=== PATIENT | male | born 1960 | race Caucasian/White ===

== ENCOUNTER 2017-03-06 11:11 | Inpatient (IN) | payer BC ==
[2017-03-06] MEDS ORDERED: cefTRIAXone(*) 1 GM in NS 0.9% 50 ML* 50 ML IVPB ONE (12:05)
[2017-03-06] MEDS ORDERED: Ondansetron INJ* 2 MG/ML VIAL IV ONE (12:05)
[2017-03-06] MEDS ORDERED: Ketorolac INJ* 30 MG/ML 1 ML VIAL IV ONE (12:05)
[2017-03-06] MEDS ORDERED: NS 0.9% 1000 ML* 2,000 ML IV ONE (12:05)
[2017-03-06 12:37] LABS: Comments Flag Yes; Hematocrit 32 % (42-52); Hemoglobin 10.7 g/dl (14.0-18.0); Mean Corpuscular HGB Conc 34 g/dl (31-36); Mean Corpuscular Hemoglobin 26 pg (27-31); Mean Corpuscular Volume 77 fL (80-94); Mean Platelet Volume 8 um3 (7.4-10.4); Red Blood Count 4.14 10^6/ul (4.0-5.4); Red Cell Distribution Width 19 % (10.5-15); White Blood Count 5.5 10^3/ul (3.5-10.8)
[2017-03-06 12:38] LABS: Add Diff/Slide Review? Slide Review Added
[2017-03-06 12:44] LABS: Albumin 3.5 g/dL (3.2-5.2); BUN/Creatinine Ratio 13.6 (8-20); C Reactive Protein 79.09 mg/L (< 5.00); EGFR African American 125.4 (>60); EGFR Non-African American 97.5 (>60); Globulin 3.3 g/dL (2-4); Potassium 4.2 mmol/L (3.5-5.0); Total Protein 6.8 g/dL (6.4-8.9)
--- NOTE | 2017-03-06 13:02 | RAD ---
INDICATION: Neck pain radiating to both arms. COMPARISON: There are no prior studies available for comparison. TECHNIQUE: Contiguous axial sections were obtained from the skull base through the T1 vertebra. Images were reconstructed in the sagittal and coronal planes. FINDINGS: There is straightening of the cervical spine with loss of the normal cervical lordosis. No fracture is seen. At the C3-C4 level there is posterior uncinate process spurring. No significant spinal canal narrowing is present. There is moderate neural foraminal narrowing on the left side. At the C4-C5 level there is [id number] posterior uncinate process spurring. This causes mild spinal canal narrowing. There is moderate neural foraminal narrowing on the right side and mild neural foraminal narrowing on the left side. At the C5-C6 level there is mild posterior uncinate process spurring. There is mild spinal canal narrowing and mild bilateral neural foraminal narrowing. At the C6-C7 level there is mild posterior uncinate process spurring. There is mild spinal canal narrowing and mild bilateral neural foraminal narrowing. IMPRESSION: 1. MILD TO MODERATE CERVICAL SPONDYLOSIS DESCRIBED, IF THE PATIENT'S SYMPTOMS PERSIST RECOMMEND MR IMAGING. 2. STRAIGHTENING OF THE CERVICAL SPINE.
--- NOTE | 2017-03-06 13:04 | RAD ---
INDICATION: Fever. COMPARISON: Comparison is made with a prior chest x-ray study from November 05, 2016. TECHNIQUE: A portable view of the chest was obtained. FINDINGS: Cardiac and mediastinal contours appear to be within normal limits. The lungs are underinflated. There is a small infiltrate at the right lung base. No pleural effusion is seen. IMPRESSION: SMALL RIGHT BASILAR INFILTRATE.
[2017-03-06] MEDS ORDERED: Acetaminophen TAB* 325 MG PO ONE (13:45)
[2017-03-06] MEDS ORDERED: Azithromycin IV(*) 500 MG in NS 0.9% 250 ML* 250 ML IVPB ONE (14:01)
[2017-03-06 15:06] LABS: Urine Bacteria Absent (Absent); Urine Bilirubin Negative (Negative); Urine Glucose 2+(150 mg/dL) (Negative); Urine Nitrite Negative (Negative)
[2017-03-06] MEDS ORDERED: Ondansetron INJ* 2 MG/ML VIAL IV PRN (16:21)
[2017-03-06] MEDS ORDERED: Morphine INJ* 2 MG/ML 1 ML CARPUJECT IV PRN (16:21)
--- NOTE | 2017-03-06 16:26 | ED ---
Bruno Mabry Benjamin, scribed for Rene Garcia MD on 03/06/17 at 1211 . Complex/Multi-Sys Presentation - HPI Summary HPI Summary: 57yo male with hx of CA, which pt had removal surgery in his neck and was on chemo therapy 2 years ago. Pt has been following up with Dr. Gaitan and Dr. Khoury and today was seen for iron transfusion for his anemia when pt felt confused. Pt reports having THAKUR and fever for the last 3-4 days. He also had some neck pain for couple of weeks that he saw a chiropractor yesterday, which made his pain worse. He now reports numbness and pain radiating down to his fingers. Pt has been getting high fever intermittently throughout his current courses of treatment for his CA. - History Of Current Complaint Chief Complaint: EDFever Time Seen by Provider: 03/06/17 11:31 Hx Obtained From: Patient Onset/Duration: Sudden Onset, Lasting Days, Still Present, Worse Since - last few hours Timing: Intermittent, Lasting: Severity Currently: Moderate Severity Initially: Mild Location: Pain At: - THAKUR, neck, Radiates To: - fingers Associated Signs And Symptoms: Positive: Headache, Fever - Allergies/Home Medications Allergies/Adverse Reactions: Allergies Allergy/AdvReac Type Severity Reaction Status Date / Time No Known Allergies Allergy Verified 03/06/17 11:39 Home Medications: Home Medications Escitalopram (NF) [Lexapro 20 mg (NF)] 20 mg PO DAILY 03/06/17 [History Confirmed 03/06/17] Levothyroxine TAB* [Synthroid TAB*] 25 mcg PO DAILY 03/06/17 [History Confirmed 03/06/17] Omeprazole CAP* [Prilosec CAP* 20 MG] 20 mg PO .DAILY-BID 03/06/17 [History Confirmed 03/06/17] PMH/Surg Hx/FS Hx/Imm Hx Endocrine/Hematology History: Reports: Hx Diabetes - DIET CONTROLLED, Hx Thyroid Disease, Hx 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 Cardiovascular History: Reports: Hx Hypertension Denies: Hx Congestive Heart Failure, Hx Pacemaker/ICD Respiratory History: Denies: Hx Asthma, Hx Chronic Obstructive Pulmonary Disease (COPD) GI History: Reports: Hx Cirrhosis, Hx Gastrointestinal Bleed, Other GI Disorders - GIB Denies: Hx Ulcer History: Reports: Hx Renal Disease Sensory History: Reports: Hx Contacts or Glasses Denies: Hx Cataracts, Hx Hearing Aid Opthamlomology History: Reports: Hx Contacts or Glasses Denies: Hx Cataracts Psychiatric History: Reports: Hx Anxiety, Hx Depression - attention deficit Denies: Hx Panic Disorder - Cancer History Cancer Type, Location and Year: neck/throat ca- 2015. Squamous cell Hx Chemotherapy: Yes - LAST CHEMO 02/07 Hx Radiation Therapy: Yes - LAST RADIATION 02/11 Hx Palliative Cancer Treatment: No - Surgical History Surgery Procedure, Year, and Place: RIGHT HAND 03/2012, [facility] [place]. 12/22/14- REMOVAL OF LYMPH NODE LEFT NECK- [facility] [place]. bilateral hernia repair late Hx Anesthesia Reactions: No Infectious Disease History: Reports: Hx Hepatitis Denies: Hx Clostridium Difficile, Hx Human Immunodeficiency Virus (HIV), Hx of Known/Suspected MRSA, Hx Shingles, Hx Tuberculosis, Hx Known/Suspected VRE, Hx Known/Suspected VRSA, History Other Infectious Disease, Traveled Outside the [place] in Last 30 Days - Family History Known Family History: Positive: Hypertension, Diabetes - Social History Occupation: Employed Full-time Lives: Alone Alcohol Use: None Substance Use Type: Reports: None Hx Tobacco Use: No Smoking Status (MU): Former Smoker Type: Cigarettes Review of Systems Positive: Fever. Negative: Chills Eyes: Negative ENT: Negative Cardiovascular: Negative Respiratory: Negative Gastrointestinal: Negative Genitourinary: Negative Positive: Arthralgia - neck pain Skin: Negative Positive: Headache, Numbness - neck Psychological: Normal All Other Systems Reviewed And Are Negative: Yes Physical Exam Triage Information Reviewed: Yes Vital Signs On Initial Exam: Initial Vitals Temp Pulse Resp BP Pulse Ox 102.1 F 85 18 139/57 99 03/06/17 11:14 03/06/17 11:14 03/06/17 11:14 03/06/17 11:14 03/06/17 11:14 Vital Signs Reviewed: Yes Appearance: Positive: Well-Nourished, Ill-Appearing - moderate, Pain Distress - mild Skin: Positive: Warm, Skin Color Reflects Adequate Perfusion, Dry Head/Face: Positive: Normal Head/Face Inspection Eyes: Positive: EOMI, LEWIS ENT: Positive: Normal ENT inspection, Hearing grossly normal Neck: Positive: Tenderness @ - Tenderness in lateral aspects of the neck and bilateral trapezoids. Negative: Supple - decreased neck ROM secondary to pain Respiratory/Lung Sounds: Positive: Clear to Auscultation, Breath Sounds Present Cardiovascular: Positive: RRR, Pulses are Symmetrical in both Upper and Lower Extremities, Murmur Abdomen Description: Positive: Nontender, Soft Bowel Sounds: Positive: Present Musculoskeletal: Positive: Strength/ROM Intact Neurological: Positive: Sensory/Motor Intact, Alert, Oriented to Person Place, Time Psychiatric: Positive: Affect/Mood Appropriate Diagnostics - Vital Signs Vital Signs Temp Pulse Resp BP Pulse Ox 03/06/17 11:14 102.1 F 85 18 139/57 99 - Laboratory Lab Results: Lab Results 03/06/17 03/06/17 03/06/17 Range/Units 12:12 12:12 12:12 WBC 5.5 (3.5-10.8) 10^3/ul RBC 4.14 (4.0-5.4) 10^6/ul Hgb 10.7 L (14.0-18.0) g/dl Hct 32 L (42-52) % MCV 77 L (80-94) fL MCH 26 L (27-31) pg MCHC 34 (31-36) g/dl RDW 19 H (10.5-15) % Plt Count 44 L (150-450) 10^3/ul MPV 8 (7.4-10.4) um3 Neut % (Auto) 84.7 H (38-83) % Lymph % (Auto) 5.0 L (25-47) % [place] % (Auto) 10.0 H (1-9) % Eos % (Auto) 0.1 (0-6) % Baso % (Auto) 0.2 (0-2) % Absolute Neuts (auto) 4.7 (1.5-7.7) 10^3/ul Absolute Lymphs (auto) 0.3 L (1.0-4.8) 10^3/ul Absolute Monos (auto) 0.5 (0-0.8) 10^3/ul Absolute Eos (auto) 0 (0-0.6) 10^3/ul Absolute Basos (auto) 0 (0-0.2) 10^3/ul Absolute Nucleated RBC 0 10^3/ul Nucleated RBC % 0 INR (Anticoag Therapy) 1.33 H (0.89-1.11) APTT 27.6 (26.0-36.3) seconds Sodium 132 L (133-145) mmol/L Potassium 4.2 (3.5-5.0) mmol/L Chloride 100 L (101-111) mmol/L Carbon Dioxide 27 (22-32) mmol/L Anion Gap 5 (2-11) mmol/L BUN 11 (6-24) mg/dL Creatinine 0.81 (0.67-1.17) mg/dL Est GFR ( Amer) 125.4 (>60) Est GFR (Non-Af Amer) 97.5 (>60) BUN/Creatinine Ratio 13.6 (8-20) Glucose 205 H (70-100) mg/dL Lactic Acid (0.5-2.0) mmol/L Calcium 9.0 (8.6-10.3) mg/dL Total Bilirubin 3.00 H (0.2-1.0) mg/dL AST 30 (13-39) U/L ALT 23 (7-52) U/L Alkaline Phosphatase 85 (34-104) U/L C-Reactive Protein 79.09 H (< 5.00) mg/L Total Protein 6.8 (6.4-8.9) g/dL Albumin 3.5 (3.2-5.2) g/dL Globulin 3.3 (2-4) g/dL Albumin/Globulin Ratio 1.1 (1-3) Lipase 28 (11.0-82.0) U/L Urine Color Urine Appearance Urine pH (5-9) Ur Specific [place] (1.010-1.030) Urine Protein (Negative) Urine Ketones (Negative) Urine Blood (Negative) Urine Nitrate (Negative) Urine Bilirubin (Negative) Urine Urobilinogen (Negative) Ur Leukocyte Esterase (Negative) Urine WBC (Auto) (Absent) Urine RBC (Auto) (Absent) Urine Bacteria (Absent) Urine Glucose (Negative) 03/06/17 03/06/17 Range/Units 12:12 14:45 WBC (3.5-10.8) 10^3/ul RBC (4.0-5.4) 10^6/ul Hgb (14.0-18.0) g/dl Hct (42-52) % MCV (80-94) fL MCH (27-31) pg MCHC (31-36) g/dl RDW (10.5-15) % Plt Count (150-450) 10^3/ul MPV (7.4-10.4) um3 Neut % (Auto) (38-83) % Lymph % (Auto) (25-47) % [place] % (Auto) (1-9) % Eos % (Auto) (0-6) % Baso % (Auto) (0-2) % Absolute Neuts (auto) (1.5-7.7) 10^3/ul Absolute Lymphs (auto) (1.0-4.8) 10^3/ul Absolute Monos (auto) (0-0.8) 10^3/ul Absolute Eos (auto) (0-0.6) 10^3/ul Absolute Basos (auto) (0-0.2) 10^3/ul Absolute Nucleated RBC 10^3/ul Nucleated RBC % INR (Anticoag Therapy) (0.89-1.11) APTT (26.0-36.3) seconds Sodium (133-145) mmol/L Potassium (3.5-5.0) mmol/L Chloride (101-111) mmol/L Carbon Dioxide (22-32) mmol/L Anion Gap (2-11) mmol/L BUN (6-24) mg/dL Creatinine (0.67-1.17) mg/dL Est GFR ( Amer) (>60) Est GFR (Non-Af Amer) (>60) BUN/Creatinine Ratio (8-20) Glucose (70-100) mg/dL Lactic Acid 1.5 (0.5-2.0) mmol/L Calcium (8.6-10.3) mg/dL Total Bilirubin (0.2-1.0) mg/dL AST (13-39) U/L ALT (7-52) U/L Alkaline Phosphatase (34-104) U/L C-Reactive Protein (< 5.00) mg/L Total Protein (6.4-8.9) g/dL Albumin (3.2-5.2) g/dL Globulin (2-4) g/dL Albumin/Globulin Ratio (1-3) Lipase (11.0-82.0) U/L Urine Color [place] Urine Appearance Clear Urine pH 6.0 (5-9) Ur Specific [place] 1.019 (1.010-1.030) Urine Protein Negative (Negative) Urine Ketones Negative (Negative) Urine Blood 2+ H (Negative) Urine Nitrate Negative (Negative) Urine Bilirubin Negative (Negative) Urine Urobilinogen Positive H (Negative) Ur Leukocyte Esterase Negative (Negative) Urine WBC (Auto) Trace(0-5/hpf) (Absent) Urine RBC (Auto) 3+(>10/hpf) H (Absent) Urine Bacteria Absent (Absent) Urine Glucose 2+(150 mg/dl) H (Negative) Result Diagrams: 03/06/17 12:12 03/06/17 12:12 Lab Statement: Any lab studies that have been ordered have been reviewed, and results considered in the medical decision making process. - Radiology CXR Xray Interpretation: Positive (See Comments) - IMPRESSION: SMALL RIGHT BASILAR INFILTRATE. Radiology Interpretation Completed By: Radiologist - ED physician has reviewed this radiology report and agrees. - CT CT C Spine WO CT Interpretation: Positive (See Comments) - IMPRESSION: 1. MILD TO MODERATE CERVICAL SPONDYLOSIS DESCRIBED, IF THE PATIENT'S SYMPTOMS PERSIST RECOMMEND MR IMAGING. 2. STRAIGHTENING OF THE CERVICAL SPINE. CT Interpretation Completed By: Radiologist - ED physician has reviewed this radiology report and agrees. Re-Evaluation - Re-Evaluation First Eval Re-Evaluation Time: 13:33 Comment: Reviewed pts lab and imaging results with the pt. Second Eval Re-Evaluation Time: 14:23 Comment: Discussed course of treatment with the pt. Complex Multi-Symp Course/Dx Course Of Treatment: Reviewed pts medication and allergy lists. Blood pressure noted. Discussed with Dr. Lees (Oncology) at 1357. Discussed with Dr. Hair (Hospitalist) at 1405, 1518. DR HAIR SAW PATIENT IN ED. AT THIS TIME, DUE TO PLATELETS AT 44K, NO LP. ADMIT HOSPITALIST. - Diagnoses Provider Diagnoses: Pneumonia, Fever, Neck pain, Thrombocytopenia Discharge - Discharge Plan Condition: Stable Disposition: ADMITTED TO [facility] documentation as recorded by the Bruno nobles Benjamin accurately reflects the service I personally performed and the decisions made by me, Rene Garcia MD.
[2017-03-06] MEDS ORDERED: Gadoteridol* (CONTRAST) 279.3 MG/ML 10 ML IV ONE (17:40)
[2017-03-06] MEDS: Citalopram TAB* 40 MG PO SCH (18:43)
[2017-03-06] MEDS: NS 0.9% 1000 ML* 1,000 ML IV SCH (18:45)
[2017-03-06] MEDS: HYDROcodone/ACETAMIN 5-325 MG* 1 TAB PO PRN (18:49)
--- NOTE | 2017-03-06 19:31 | HP ---
CC: Dr. Huerta; Dr. Khoury * HISTORY AND PHYSICAL: DATE OF ADMISSION: 03/06/17 PRIMARY CARE PROVIDER: Dr. Huerta. ONCOLOGIST: Dr. Khoury. CHIEF COMPLAINT: Fever. HISTORY OF PRESENT ILLNESS: Mr. Rushing is a 57-year-old male who has a history of squamous cell carcinoma of head and neck, status post chemotherapy and radiation therapy, chronic hepatitis C, chronic thrombocytopenia, and iron deficiency anemia, who presented to the emergency room with complaints of fever. The patient states that for approximately the last 4 days, he has had low-grade fevers. 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 He states in addition to the low-grade fevers, he developed worse to normal neck pain. He states that he will routinely have neck pain that comes and goes; however, this has been much more severe than usual. The patient states that the day prior to admission, he went to his chiropractor for neck adjustment. He states the chiropractor used some sort of machine for muscle spasms on him and then tried to "crack his neck." He states the chiropractor was not successful with this and his neck pain worsened quite significantly following that. The patient notices severe pain when trying to move at all including sitting up. The patient states that at approximately 5.30 this morning, he checked his temperature and it was markedly elevated at 104. Despite this, he still went to his outpatient infusion for his IV iron. There, his fever was noted to be quite high and he was referred to the emergency room. He does in addition to the neck pain complain of headache; however, headaches are a frequent issue for him. He does admit to cough, but this too is chronic. He states he frequently will cough up mucus throughout the day, but this is no worse than usual. He denies any dysuria, he denies any diarrhea, he denies any sore throat. He has noted that his urine has been dark orange in color for a week as well as it has been smelly. The patient feels very tired and has so over the last approximately 10 days. PAST MEDICAL HISTORY: 1. 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 2. Chronic hepatitis C. 3. Chronic thrombocytopenia. 4. Bipolar disorder. 5. Chronic iron deficiency anemia. MEDICATIONS: 1. Lactobacillus 1 cap p.o. daily. 2. Poly-Iron 150, 1 cap p.o. daily. 3. Lexapro 20 mg p.o. daily. 4. Omeprazole 20 mg p.o. twice daily. 5. Levothyroxine 25 mcg p.o. daily. ALLERGIES: No known drug allergies. FAMILY HISTORY: Mom at the age of 85, there was a question of breast cancer. Dad at the age of 85, he had questionably heart disease. The patient is 1 of 9 children. Had 1 sister from ovarian cancer, 2 bothers from liver cancer. SOCIAL HISTORY: The patient is a former smoker, he quit 35 to 40 years ago. He does not drink alcohol. 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 He is , he has 1 grown son. His sister Brenda would be his healthcare proxy. REVIEW OF SYSTEMS: The patient admits to fevers and anorexia as above. He has felt very chilled today. He denies any chest pain. He has had cough and mucus production as above, but no shortness of breath. No nausea, vomiting, abdominal pain, diarrhea or constipation. He has noted intermittent blood in stool and is followed by Dr. Gaitan for this. No dysuria. He has generalized weakness. He states his vision has been blurry for quite sometime. He has chronic dysphagia. He feels achy all over. No rashes. He does carry a history of depression and anxiety; however, he states that this has been well controlled recently. PHYSICAL EXAMINATION GENERAL: The patient is a well-developed middle-aged male, sitting in a stretcher, appearing to be in no acute distress.. VITAL SIGNS: Blood pressure 102/56, pulse 89, respirations 20, temp 103.0, O2 sat 98% on room air. HEENT: Pupils are equal, they are round, they react to light. Extraocular muscles are intact. Oropharynx is clear. Oral mucosa is moist. NECK: There is no submandibular, cervical or supraclavicular adenopathy noted. Thyroid is not enlarged. No thyroid nodules are noted. PULMONARY: Lungs are clear to auscultation bilaterally. CARDIAC: Normal S1 and S2. Regular rate and rhythm. I do not appreciate any murmurs. There is no lower extremity edema. ABDOMEN: Bowel sounds are present. Abdomen is soft, nontender, nondistended. MUSCULOSKELETAL: There is no cyanosis or clubbing of the digits. There is full active range of motion of all 4 extremities. NEURO: Cranial nerves II through XII are grossly intact. Sensation is intact to light touch throughout. Strength is 5/5 and symmetric in both upper and lower extremities bilaterally. The patient does have stiff neck and is unable touch his chin to his chest. He has a negative Kernig sign. PSYCH: The patient is alert. He is oriented x3. Affect appears appropriate. SKIN: Warm and dry. There are no rashes. DIAGNOSTIC STUDIES/LAB DATA: WBC 5.5, hemoglobin 10.7, hematocrit 32, platelets 44,000. INR 1.33. Sodium 132, potassium 4.2, chloride 100, CO2 27, BUN 11, creatinine 0.81, glucose 205, lactic acid 1.5, calcium 9.0, bilirubin 3.0, AST 30, ALT 23, alk phos 85. CRP 79.09, albumin 3.5, lipase 28. Urinalysis reveals specific gravity of 1.019, 2+ blood, positive urobilinogen, trace wbc, 3+ rbc, absent bacteria and 2+ glucose. Chest x-ray, small right basilar infiltrate. Cervical spine CT, mild-to- moderate cervical spondylosis and straightening of cervical spine is noted. ASSESSMENT AND PLAN: Mr. Rushing is a 57-year-old male who has a history of head and neck cancer, chronic thrombocytopenia, and chronic iron deficiency anemia, who presented to the emergency room with complaints of fever and neck pain. 1. Fever. The etiology of this is not completely clear. On the differential would include pneumonia for which there is a positive chest x-ray with infiltrate at the right base versus meningitis versus urinary tract infection versus generalized viral illness. The patient will be treated with ceftriaxone and azithromycin for a possible right lower lobe pneumonia. In terms of meningitis, I do feel that an LP would be indicated; however, his platelet count is only 44,000 and a LP at this point would be unsafe. If the patient fails to respond to treatment for possible pneumonia or if his headache or neck pain worsens, we will need to consider transfusing the patient's platelets and performing a lumbar puncture. I did discuss with the patient with his platelet count as low as it is, it would be unsafe to do the lumbar puncture. He is in agreement in waiting at this point. The patient's urine has been sent to the lab. I will obtain legionella and strep pneumoniae urinary antigens. A sputum culture will also be obtained. The patient does give a history of having intermittent fevers off and on, which is obtained after completing the physical exam. ID consultation will likely be sought tomorrow. 2. Neck pain. This seems to be likely musculoskeletal in nature, though meningitis is a possibility. He will have Tylenol, [place] and morphine available for pain control. 3. Thrombocytopenia. This is chronic. His platelet count is in his usual range. 4. Iron deficiency anemia. The patient's H and H is better than his usual level. It is possible that he is somewhat dehydrated given his acute illness. We will follow his H and H. 5. Elevated blood glucose. Hemoglobin A1c will be obtained. It is unclear when the patient ate in relation to this blood draw. 6. Elevated bilirubin. The patient has had a chronically elevated bilirubin; however, this is the highest it has ever been. We will follow this intermittently. 7. Hypothyroidism. The patient will be maintained on his usual dose of Synthroid. 8. Anxiety/depression. This is not active right now. However, the patient will be continued on his usual dose of Lexapro. 9. DVT prophylaxis. According to the Adult Thrombosis Prophylaxis Risk Factor Assessment Guide, the patient has a total risk factor score of 4, making him high risk. Given his marked thrombocytopenia, the patient will have SCDs alone as DVT prophylaxis. 5. Code status is full and again, the patient indicates that his sister is his healthcare proxy. TIME SPENT: Sixty five minutes was spent admitting this patient. [id number]/[facility] #: [id number] ALCIDES
[2017-03-06] MEDS: Omeprazole CAP* 20 MG PO SCH (20:32)
[2017-03-06] MEDS: Acetaminophen TAB* 325 MG PO PRN (20:32)
--- NOTE | 2017-03-06 23:38 | RAD ---
Indication: Fever, neck pain, headache. Assess for potential epidural abscess. History of head and neck cancer. Comparison: March 06, 2017 CT. Technique: [place] 1.5 Liz [id number] with GEM suite. Pre and postcontrast MRI cervical spine. 17 mL ProHance administered IV. Report: The cervical spinal cord is normal in morphology and patterns of signal intensity. Negative for syringohydromyelia. Negative for abnormal intra or extra-axial enhancement. No suspicious bone marrow signal abnormality. Negative for fracture or spondylolysis at any level. Normal vertebral alignment accounting for exam positioning without spondylolisthesis or subluxation at any level. No epidural abscess collection evident. C2-C3: Unremarkable for age. C3-C4: Mild degenerative spondylosis. Uncinate process spurring results in mild LEFT foraminal stenosis. C4-C5: Mild degenerative spondylosis. Negative for spinal stenosis. C5-C6: Mild degenerative spondylosis. Negative for spinal stenosis. C6-C7: Moderate broad posterior disc extrusion with mild caudal extension. Resulting mild acquired central canal stenosis. Negative for significant foraminal stenosis. C7-T1: Small posterior central disc extrusion with mild cephalad extension. Resulting mild central canal stenosis. Facet joint osteoarthritis results in mild LEFT foraminal stenosis. IMPRESSION: 1. No evidence for epidural abscess. 2. Multilevel degenerative spondylosis and facet joint osteoarthritis. Resulting mild acquired central canal stenosis at C6-C7 and C7-T1. Resulting mild LEFT foraminal stenosis at C3-C4 and C7-T1.
[2017-03-07] MEDS: HYDROcodone/ACETAMIN 5-325 MG* 1 TAB PO PRN ×4 (01:22→22:35)
[2017-03-07] MEDS: Acetaminophen TAB* 325 MG PO PRN ×3 (01:24→16:14)
[2017-03-07] MEDS: Levothyroxine TAB* 25 MCG TAB PO SCH (05:29)
[2017-03-07] MEDS: NS 0.9% 1000 ML* 1,000 ML IV SCH (06:44)
[2017-03-07] MEDS ORDERED: Morphine INJ* 2 MG/ML 1 ML CARPUJECT IV PRN (08:57)
--- NOTE | 2017-03-07 09:03 | PN ---
Subjective Date of Service: 03/07/17 Interval History: Pt is feeling a little better today. He states his neck is still very painful. He now also describes having pain radiating down his L arm with his arm feeling tingly. He states the morphine at the current dose did not help much. He denies any new complaints. No diarrhea. Objective Active Medications: Acetaminophen (Tylenol Tab*) 650 mg PO Q4H PRN PRN Reason: pain or fever Last Admin: 03/07/17 01:24 Dose: 325 mg Hydrocodone Bitart/Acetaminophen ([place]ham 5-325 Tab*) 1 tab PO Q4H PRN PRN Reason: PAIN Last Admin: 03/07/17 05:40 Dose: 1 tab Citalopram Hydrobromide (Celexa Tab*) 40 mg PO DAILY [facility] Last Admin: 03/06/17 18:43 Dose: 40 mg Sodium Chloride (Ns 0.9% 1000 Ml*) 1,000 mls @ 100 mls/hr IV PER RATE [facility] Last Admin: 03/07/17 06:44 Dose: 100 mls/hr Ceftriaxone Sodium 1,000 mg/ (Sodium Chloride) 50 mls @ 200 mls/hr IVPB Q24H JOCELIN Azithromycin 500 mg/ Sodium (Chloride) 250 mls @ 250 mls/hr IVPB Q24H [facility] Levothyroxine Sodium (Synthroid Tab*) 25 mcg PO DAILY@0600 [facility] Last Admin: 03/07/17 05:29 Dose: 25 mcg Morphine Sulfate (Morphine Inj (Syringe)*) 2 mg IV Q4H PRN PRN Reason: PAIN - MILD Last Admin: 03/07/17 06:40 Dose: 2 mg Omeprazole (Prilosec Cap*) 20 mg PO BID [facility] Last Admin: 03/06/17 20:32 Dose: 20 mg Ondansetron HCl (Zofran Inj*) 4 mg IV Q6H PRN PRN Reason: NAUSEA Vital Signs 03/06/17 03/06/17 03/06/17 15:00 15:05 15:30 Temperature Pulse Rate 83 83 Respiratory 27 17 Rate Blood Pressure 118/68 102/56 (mmHg) O2 Sat by Pulse 96 97 Oximetry 03/06/17 03/06/17 03/06/17 15:35 16:00 16:53 Temperature 103.0 F 101.4 F Pulse Rate 89 84 Respiratory 20 16 Rate Blood Pressure 143/42 (mmHg) O2 Sat by Pulse 98 97 Oximetry 03/06/17 03/06/17 03/06/17 18:49 19:30 19:55 Temperature 103.0 F Pulse Rate 99 Respiratory 16 12 16 Rate Blood Pressure 101/38 (mmHg) O2 Sat by Pulse 96 Oximetry 03/06/17 03/06/17 03/07/17 20:49 23:54 01:22 Temperature 103.0 F Pulse Rate 103 Respiratory 12 16 16 Rate Blood Pressure 113/45 (mmHg) O2 Sat by Pulse 93 Oximetry 03/07/17 03/07/17 03/07/17 03:22 03:54 05:40 Temperature 99.6 F Pulse Rate 86 Respiratory 16 16 16 Rate Blood Pressure 99/43 (mmHg) O2 Sat by Pulse 94 Oximetry 03/07/17 03/07/17 06:40 08:00 Temperature 100.9 F Pulse Rate 70 Respiratory 20 16 Rate Blood Pressure 109/50 (mmHg) O2 Sat by Pulse 93 Oximetry Oxygen Devices in Use Now: None Appearance: Middle aged male sitting on edge of bed eating breakfast, NAD Eyes: No Scleral Icterus Ears/Nose/Mouth/Throat: Mucous Membranes Moist Neck: - - + tight posterior cervical musculature Respiratory: Symmetrical Chest Expansion and Respiratory Effort, Clear to Auscultation Cardiovascular: No Edema, - Abdominal: NL Sounds; No Tenderness; No Distention Extremities: No Clubbing, Cyanosis Skin: No Rash or Ulcers, No Nodules or Sclerosis Neurological: Alert and Oriented x 3 Result Diagrams: 03/06/17 12:12 03/06/17 12:12 Additional Lab and Data: Lab Results 03/06/17 03/06/17 03/06/17 Range/Units 12:12 12:12 12:12 WBC 5.5 (3.5-10.8) 10^3/ul RBC 4.14 (4.0-5.4) 10^6/ul Hgb 10.7 L (14.0-18.0) g/dl Hct 32 L (42-52) % MCV 77 L (80-94) fL MCH 26 L (27-31) pg MCHC 34 (31-36) g/dl RDW 19 H (10.5-15) % Plt Count 44 L (150-450) 10^3/ul MPV 8 (7.4-10.4) um3 Neut % (Auto) 84.7 H (38-83) % Lymph % (Auto) 5.0 L (25-47) % King % (Auto) 10.0 H (1-9) % Eos % (Auto) 0.1 (0-6) % Baso % (Auto) 0.2 (0-2) % Absolute Neuts (auto) 4.7 (1.5-7.7) 10^3/ul Absolute Lymphs (auto) 0.3 L (1.0-4.8) 10^3/ul Absolute Monos (auto) 0.5 (0-0.8) 10^3/ul Absolute Eos (auto) 0 (0-0.6) 10^3/ul Absolute Basos (auto) 0 (0-0.2) 10^3/ul Absolute Nucleated RBC 0 10^3/ul Nucleated RBC % 0 INR (Anticoag Therapy) 1.33 H (0.89-1.11) APTT 27.6 (26.0-36.3) seconds Sodium 132 L (133-145) mmol/L Potassium 4.2 (3.5-5.0) mmol/L Chloride 100 L (101-111) mmol/L Carbon Dioxide 27 (22-32) mmol/L Anion Gap 5 (2-11) mmol/L BUN 11 (6-24) mg/dL Creatinine 0.81 (0.67-1.17) mg/dL Est GFR ( Amer) 125.4 (>60) Est GFR (Non-Af Amer) 97.5 (>60) BUN/Creatinine Ratio 13.6 (8-20) Glucose 205 H (70-100) mg/dL Lactic Acid (0.5-2.0) mmol/L Calcium 9.0 (8.6-10.3) mg/dL Total Bilirubin 3.00 H (0.2-1.0) mg/dL AST 30 (13-39) U/L ALT 23 (7-52) U/L Alkaline Phosphatase 85 (34-104) U/L C-Reactive Protein 79.09 H (< 5.00) mg/L Total Protein 6.8 (6.4-8.9) g/dL Albumin 3.5 (3.2-5.2) g/dL Globulin 3.3 (2-4) g/dL Albumin/Globulin Ratio 1.1 (1-3) Lipase 28 (11.0-82.0) U/L Urine Color Urine Appearance Urine pH (5-9) Ur Specific Clements (1.010-1.030) Urine Protein (Negative) Urine Ketones (Negative) Urine Blood (Negative) Urine Nitrate (Negative) Urine Bilirubin (Negative) Urine Urobilinogen (Negative) Ur Leukocyte Esterase (Negative) Urine WBC (Auto) (Absent) Urine RBC (Auto) (Absent) Urine Bacteria (Absent) Urine Glucose (Negative) 03/06/17 03/06/17 Range/Units 12:12 14:45 WBC (3.5-10.8) 10^3/ul RBC (4.0-5.4) 10^6/ul Hgb (14.0-18.0) g/dl Hct (42-52) % MCV (80-94) fL MCH (27-31) pg MCHC (31-36) g/dl RDW (10.5-15) % Plt Count (150-450) 10^3/ul MPV (7.4-10.4) um3 Neut % (Auto) (38-83) % Lymph % (Auto) (25-47) % King % (Auto) (1-9) % Eos % (Auto) (0-6) % Baso % (Auto) (0-2) % Absolute Neuts (auto) (1.5-7.7) 10^3/ul Absolute Lymphs (auto) (1.0-4.8) 10^3/ul Absolute Monos (auto) (0-0.8) 10^3/ul Absolute Eos (auto) (0-0.6) 10^3/ul Absolute Basos (auto) (0-0.2) 10^3/ul Absolute Nucleated RBC 10^3/ul Nucleated RBC % INR (Anticoag Therapy) (0.89-1.11) APTT (26.0-36.3) seconds Sodium (133-145) mmol/L Potassium (3.5-5.0) mmol/L Chloride (101-111) mmol/L Carbon Dioxide (22-32) mmol/L Anion Gap (2-11) mmol/L BUN (6-24) mg/dL Creatinine (0.67-1.17) mg/dL Est GFR ( Amer) (>60) Est GFR (Non-Af Amer) (>60) BUN/Creatinine Ratio (8-20) Glucose (70-100) mg/dL Lactic Acid 1.5 (0.5-2.0) mmol/L Calcium (8.6-10.3) mg/dL Total Bilirubin (0.2-1.0) mg/dL AST (13-39) U/L ALT (7-52) U/L Alkaline Phosphatase (34-104) U/L C-Reactive Protein (< 5.00) mg/L Total Protein (6.4-8.9) g/dL Albumin (3.2-5.2) g/dL Globulin (2-4) g/dL Albumin/Globulin Ratio (1-3) Lipase (11.0-82.0) U/L Urine Color Rosalba Urine Appearance Clear Urine pH 6.0 (5-9) Ur Specific Clements 1.019 (1.010-1.030) Urine Protein Negative (Negative) Urine Ketones Negative (Negative) Urine Blood 2+ H (Negative) Urine Nitrate Negative (Negative) Urine Bilirubin Negative (Negative) Urine Urobilinogen Positive H (Negative) Ur Leukocyte Esterase Negative (Negative) Urine WBC (Auto) Trace(0-5/hpf) (Absent) Urine RBC (Auto) 3+(>10/hpf) H (Absent) Urine Bacteria Absent (Absent) Urine Glucose 2+(150 mg/dl) H (Negative) Microbiology and Other Data: Microbiology 03/06/17 20:00 Legionella Urinary Antigen - Final Urine Negative Legionella Streptococcus pneumoniae Ag Screen - Final Negative S. 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 - Patient Problems (1) Bacteremia due to group B Streptococcus Current Visit: Yes Status: Acute Code(s): R78.81 - BACTEREMIA SNOMED Code( s): 907693886392 Comment: The patient presented to the ER with c/o fever and neck pain. At this point is suspect the neck pain is musculoskeletal in nature. It was not clear where the fever came from on admission but now his blood cultures have come up positive for group B strep (4/4 bottles). MRI of the neck did not reveal epidural abscess. Transthoracic echo ordered this AM and pending. ID to see the patient later today. (2) Thrombocytopenia Current Visit: Yes Status: Acute Code(s): D69.6 - THROMBOCYTOPENIA, UNSPECIFIED SNOMED Code(s): 194087928 Comment: This is chronic and he is essentially at his baseline. (3) Iron deficiency anemia Current Visit: Yes Status: Acute Code(s): D50.9 - IRON DEFICIENCY ANEMIA, UNSPECIFIED SNOMED Code(s): 70781815 Comment: H/H on admission in pt's normal range. Will get follow up CBC tomorrow. (4) Hepatic cirrhosis due to chronic hepatitis C infection Current Visit: Yes Status: Chronic Code(s): B18.2 - CHRONIC VIRAL HEPATITIS C; K74.60 - UNSPECIFIED CIRRHOSIS OF LIVER SNOMED Code(s): 034626936480 Comment: Nothing to do at this time. (5) DVT prophylaxis Current Visit: Yes Status: Acute Code(s): FNP6636 - SNOMED Code(s): 420860919 Comment: SCDs alone given thrombocytopenia (6) Full code status Current Visit: Yes Status: Acute Code(s): Z78.9 - OTHER SPECIFIED HEALTH STATUS SNOMED Code(s): 388675233
[2017-03-07] MEDS: Cyclobenzaprine TAB* 10 MG PO PRN (09:26)
[2017-03-07] MEDS: Omeprazole CAP* 20 MG PO SCH ×2 (09:26→22:34)
[2017-03-07] MEDS: Citalopram TAB* 40 MG PO SCH (09:27)
[2017-03-07] MEDS: Morphine INJ* 4 MG/ML 1 ML CARPUJECT IV PRN ×2 (09:43→13:56)
--- NOTE | 2017-03-07 13:01 | CONS ---
CONSULTATION REPORT: DATE OF CONSULT: 03/07/17 REQUESTING PHYSICIAN: Dr. Hair. CONSULTING SERVICE: Infectious Disease. REASON FOR CONSULT: Strep bacteremia. IMPRESSION: 1. Fever, group B Strep bacteremia 4/4 bottles, sensitivities pending. The differential diagnosis for the source includes infective endocarditis, spine infection; he had a C-spine MRI yesterday, which was negative. He does have cervical and thoracic spine tenderness, so we will need to rule out thoracic spine infection. He has no diabetic ulcers or cellulitis. 2. Cirrhosis with portal hypertension. 3. History of squamous cell cancer of the head and neck, status post chemotherapy and radiation. RECOMMENDATION: Agree with ceftriaxone 1 g daily, recheck the blood cultures to make sure they are clear. We will obtain a transthoracic echocardiogram. Will need an MRI of the thoracic spine with contrast when he is able to. If the TTE is negative, we will obtain a transesophageal echocardiogram. HISTORY OF PRESENT ILLNESS: This is a 57-year-old cirrhotic man admitted with neck pain and fever. He had been having fever and chills for a few days, neck pain for a few weeks, and has seen a chiropractor without any improvement. He has ongoing neck and upper back pain. When he came to the hospital, his white count was 5. He had blood cultures taken 4/4 positive for group B Strep. He has been persistently febrile since he has gotten here. He is on ceftriaxone. He had a chest x-ray yesterday, shows moderate basilar infiltrate. He has no cough, chest pain, or dyspnea. Sputum culture was sent and is pending. He has not had an infection like this in the past. He has no prosthetic material present. PAST MEDICAL HISTORY: 1. Cirrhosis with varices. 2. Splenomegaly with thrombocytopenia. 3. Hepatitis C, cured. 4. Bipolar disorder. 5. Chronic iron deficiency anemia. MEDICATIONS: 1. Tylenol. 2. Citalopram. 3. Flexeril. 4. Vicodin. 5. Levothyroxine. 6. Omeprazole. 7. Ceftriaxone 1 g daily. 8. Azithromycin. ALLERGIES: No known drug allergies. FAMILY HISTORY: Mom at 85. Father at 85 with heart disease. SOCIAL HISTORY: He lives outside of [place], past smoker, no alcohol. 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 REVIEW OF SYSTEMS: All negative to a full review of systems except as noted above. PHYSICAL EXAM: Vital Signs: Temperature 38.3, heart rate 70, respiratory rate 16, blood pressure 109/50, and O2 sat 93% on room air. In general, he is awake and not in distress. HEENT: There is no conjunctival hemorrhage. Oropharynx without lesions. Neck is supple without nuchal rigidity. Lymph Nodes: There is no inguinal, axillary, or epitrochlear lymphadenopathy. Heart has regular rate and rhythm with a 2/6 systolic murmur. Lungs: Clear to auscultation bilaterally. Abdomen: Soft, nontender, nondistended. There are bowel sounds present. Skin: There is no rash or splinter hemorrhage. He has palmar erythema. Musculoskeletal: He has cervical and thoracic spine tenderness to palpation. No lumbar spine tenderness to palpation. He has no joint synovitis. Neurologic: He has 5/5 strength in the deltoids, biceps, triceps, wrist flexors and extensors bilaterally as well as in the quadriceps, tibialis anterior and gastrocnemius bilaterally. Sensation is intact to light touch in the upper and lower extremities bilaterally. LABORATORY DATA: White blood cell count 5, hemoglobin 10, platelets 44,000. Creatinine is 0.8. CRP 80. Total bilirubin is 3.0. AST 30. Please see impressions and recommendations outlined above, which I have discussed with Dr. Hair. Thanks for asking me to see Mr. Rushing in consultation. [id number]/[facility] #: [id number] [facility]USCarl
[2017-03-07] MEDS: cefTRIAXone VIAL(*) 1,000 MG in NS 0.9% 50 ML* 50 ML IVPB SCH (14:00)
--- NOTE | 2017-03-07 14:24 | ECHO ---
Patient: ROBLES ROGERS [facility] Rec#: [id number] : 1960 Date: 03/07/2017 Age: 57y Height: 175.26 cm / 69.0 in Weight: 83.91 kg / 184.9 lbs Sex: M BSA: 2 Room#: 451 Admit Date#: 03/06/2017 Type: Inpatient Referring: Allyn Hair DO Reading: Epifanio Singh MD Facilities Technician: Yadira Ring RDCS CC: Chelsie Huerta MD Transthoracic Echocardiogram Indication: Fever BP: 109/50 HR: 83 Rhythm: NSR Findings History: Squama cell cancer in head and neck s/p chemotherapy and radiation, hepatitis C, thrombocytopenia, anemia, bipolar disorder. Technical Comments: The study quality is good. Completed at 1305. Left Ventricle: The left ventricular chamber size is normal. Mild concentric left ventricular hypertrophy is observed. Global left ventricular wall motion and contractility are within normal limits. There is normal left ventricular systolic function. The estimated ejection fraction is 60-65%. Normal left ventricular diastolic filling is observed. Left Atrium: The left atrium is slightly dilated. Right Ventricle: The right ventricle is mildly dilated. The right ventricular global systolic function is normal. Right Atrium: The right atrium is mildly dilated. Aortic Valve: The aortic valve is trileaflet. The aortic valve leaflets are mildly thickened. There is a trace of aortic regurgitation. There is no evidence of aortic stenosis. Mitral Valve: The mitral valve leaflets are mildly thickened. The anterior leaflet of the mitral valve is thickened. There is a trace of mitral regurgitation. There is no evidence of mitral stenosis. Tricuspid Valve: The tricuspid valve leaflets are normal. There is trace to mild tricuspid regurgitation. The right ventricular systolic pressure is estimated at 44 mmHg. There is evidence of mild pulmonary hypertension. There is no tricuspid stenosis. Pulmonic Valve: The pulmonic valve appears normal. There is a trace pulmonic regurgitation. There is no pulmonic stenosis. Pericardium: There is no significant pericardial effusion. A pericardial fat pad is visualized. Aorta: There is mild dilatation of the ascending aorta. There is no dilatation of the aortic arch. There is mild dilatation of the aortic root. Pulmonary Artery: The main pulmonary artery is not well visualized. Venous: The inferior vena cava is dilated. There is a greater than 50% respiratory change in the inferior vena cava dimension. Conclusions Mild concentric left ventricular hypertrophy is observed. There is normal left ventricular systolic function. There is normal left ventricular systolic function. The estimated ejection fraction is 60-65%. Mild concentric left ventricular hypertrophy is observed. There is normal left ventricular systolic function. The estimated ejection fraction is 60-65%. The aortic valve leaflets are mildly thickened. The mitral valve leaflets are mildly thickened. The anterior leaflet of the mitral valve is thickened. There is trace mitral regurgitation. There is trace to mild tricuspid regurgitation. There is evidence of mild pulmonary hypertension. There is a trace pulmonic regurgitation. There are no large pedunculated valvular lesions to suggest endocarditis. If clinical suspicion is high could consider additional imaging by transesophageal echocardiography. No significant change compared to report of study from 02/16/2015 Measurements Name Value Normal Range RVIDd (AP) 2D 3.1 cm (0.9 - 2.6) RVDdMajor (2D) 4.6 cm (2.2 - 4.4) RAd ISD 4CH 6.1 cm (3.4 - 4.9) RA (A4C)W 4.8 cm (2.9 - 4.6) IVSd (2D) 1.2 cm (0.6 - 1) LVPWd (2D) 1.2 cm (0.6 - 1) LVIDd (2D) 4.9 cm (3.6 - 5.4) LVIDs (2D) 2.9 cm - LV FS (2D) 40 % (25 - 45) Aortic Annulus 2.2 cm (1.4 - 2.6) Ao root diameter (2D) 3.6 cm (2.1 - 3.5) Ascending Ao 3.6 cm (2.1 - 3.4) Aortic arch 2.6 cm (1.8 - 3.4) LA dimension (AP) 2D 4.1 cm (2.3 - 3.8) LAd ISD 4CH 5.5 cm (2.9 - 5.3) LA ISD 4CH W 5.4 cm (2.5 - 4.5) Name Value Normal Range LA ESV SP 4CH (A/L) 111 ml - LA ESV SP 2CH (A/L) 116 ml - LA ESV BP (A/L) 113 ml - LA ESV BP (A/L) index 56.68 ml/m2 - LA ESV SP 4CH (MOD) 93 ml - LA ESV SP 2CH (MOD) 108 ml - Name Value Normal Range MV E-wave Vmax 0.96 m/sec - MV deceleration time 173.17 msec - MV A-wave Vmax 0.55 m/sec - MV E:A ratio 1.8 ratio - LV septal e' Vmax 0.08 m/sec - LV lateral e' Vmax 0.1 m/sec - LV E:e' septal ratio 12 ratio - LV E:e' lateral ratio 9.6 ratio - Name Value Normal Range AV Vmax 1.7 m/sec - AV VTI 32.05 cm - AV peak gradient 12.06 mmHg - AV mean gradient 5.73 mmHg - LVOT Vmax 1.55 m/sec - LVOT VTI 28.97 cm - LVOT peak gradient 9.63 mmHg - LVOT mean gradient 5.06 mmHg - NICHOLAS Vmax 1.13 m/sec - Name Value Normal Range TR Vmax 2.7 m/sec - TR peak gradient 29 mmHg - RAP 15 mmHg - RVSP 44 mmHg - IVC diameter 2.2 cm - Name Value Normal Range PV Vmax 0.89 m/sec - PV peak gradient 3.18 mmHg -
[2017-03-07] MEDS ORDERED: Azithromycin IV(*) 500 MG in NS 0.9% 250 ML* 250 ML IVPB SCH (15:00)
[2017-03-07] MEDS ORDERED: Vancomycin(*) 1,000 MG in NS 0.9% 250 ML* 250 ML IVPB ONE (16:00)
[2017-03-07] MEDS ORDERED: Vancomycin per Pharmacy* NOTE FOLLOW UP PRN (16:31)
--- NOTE | 2017-03-07 16:54 | RAD ---
Indication: Hypoxia. Fever. Comparison: March 06, 2017 chest radiograph and January 18, [address] Technique: Upright AP 1610 hours Report: Mild patchy bilateral alveolar opacities. Negative for pleural effusion or pneumothorax. The heart, pulmonary vasculature, and mediastinal contours are unremarkable. IMPRESSION: The constellation of findings given the clinical context is suspicious for bronchopneumonia.
[2017-03-07] MEDS ORDERED: Gadoteridol* (CONTRAST) 279.3 MG/ML 10 ML IV ONE (18:11)
--- NOTE | 2017-03-07 19:41 | RAD ---
Indication: Fever. Cervical and thoracic spine tenderness. Assess for thoracic spine infection/epidural abscess. History of lymphoma. Comparison: November 09, 2014 PET/CT. Technique: [place] 1.5 Liz [id number] with GEM suite. Pre and postcontrast MRI thoracic spine. Report: Severe splenomegaly noted. The thoracic spinal cord is normal in morphology and patterns of signal intensity. No epidural inflammatory process or abscess evident. No inflammatory process at the thoracic disc spaces. Negative for thoracic spinal stenosis at any level. Small T1 and T2 hyperintense osseous hemangioma at the T7 vertebral body without concern. Mild edematous type reactive endplate change at T7-T8 and T8-T9. No suspicious focal osseous lesions. IMPRESSION: 1. No evidence for thoracic spine osteomyelitis discitis or epidural abscess. 2. Splenomegaly similar to the 2015 PET/CT..
[2017-03-08] MEDS: Vancomycin(*) 1,000 MG in NS 0.9% 250 ML* 250 ML IVPB SCH ×2 (00:18→08:16)
[2017-03-08] MEDS: Morphine INJ* 4 MG/ML 1 ML CARPUJECT IV PRN ×2 (02:28→08:23)
[2017-03-08] MEDS: Levothyroxine TAB* 25 MCG TAB PO SCH (05:01)
[2017-03-08] MEDS: HYDROcodone/ACETAMIN 5-325 MG* 1 TAB PO PRN (05:02)
[2017-03-08] MEDS: Omeprazole CAP* 20 MG PO SCH ×2 (08:10→20:31)
[2017-03-08] MEDS ORDERED: NS 0.9% 250 ML* 250 ML ONE (08:20)
[2017-03-08 09:32] LABS: Comments Flag Yes; Hematocrit 27 % (42-52); Hemoglobin 9.2 g/dl (14.0-18.0); Mean Corpuscular HGB Conc 34 g/dl (31-36); Mean Corpuscular Hemoglobin 26 pg (27-31); Mean Corpuscular Volume 77 fL (80-94); Mean Platelet Volume 8 um3 (7.4-10.4); Red Cell Distribution Width 19 % (10.5-15); White Blood Count 3.5 10^3/ul (3.5-10.8)
[2017-03-08 09:33] LABS: Add Diff/Slide Review? Manual Diff Added
[2017-03-08 10:08] LABS: Immature Granulocytes 2 % (0-9); Neutrophil % 88 % (38-83)
[2017-03-08 10:14] LABS: Spherocytes 1+
[2017-03-08 10:15] LABS: Macrocytosis 1+; Microcytosis 1+
[2017-03-08 10:26] LABS: BUN/Creatinine Ratio 15.5 (8-20); Calcium 8.2 mg/dL (8.6-10.3); EGFR Non-African American 113.6 (>60); Potassium 3.9 mmol/L (3.5-5.0)
[2017-03-08 10:52] LABS: Add Path Review? YES
[2017-03-08] MEDS: Citalopram TAB* 40 MG PO SCH (11:28)
[2017-03-08] MEDS: cefTRIAXone VIAL(*) 1,000 MG in NS 0.9% 50 ML* 50 ML IVPB SCH (12:05)
[2017-03-08] MEDS ORDERED: Midazolam* 1 MG/ML 5 ML VIAL (5 MG) ONE (12:26)
[2017-03-08] MEDS ORDERED: fentaNYL* 50 MCG/ML 2 ML VIAL (100 MCG VIAL) ONE (12:27)
[2017-03-08] MEDS ORDERED: Lidocaine 2% VISCOUS* 15 ML UDC ONE (12:27)
[2017-03-08] MEDS ORDERED: Naloxone* 0.4 MG/ML 1 ML VIAL ONE (12:27)
[2017-03-08] MEDS ORDERED: Flumazenil* 0.1 MG/ML 5 ML MDV ONE (12:27)
--- NOTE | 2017-03-08 14:08 | TEE ---
Patient: ROBLES ROGERS [facility] Rec#: [id number] : 1960 Date: 03/08/2017 Age: 57y Height: 175.26 cm / 69.0 in Weight: 83.91 kg / 184.9 lbs Sex: M BSA: 2 Room#: 451 Admit Date#: 03/06/2017 Type: Inpatient Referring: Allyn Hair DO Performing: Larry Adan MD Reading: Larry Adan MD Gem Cutter: Yadira Ring RDCS Nurse: Hannah Pascual RN CC: Chelsie Huerta MD Transesophageal Echocardiogram Indication: Fever, Positive blood cultures BP: 111/52 HR: 88 Rhythm: NSR Findings History: Squamous Cell cancer in head and neck s/p chemotherapy and radiation, hepatitis C, thrombocytopenia, anemia, bipolar, positive blood cultures Staphylococcus Aureus and Strep Agalactiae. This is a LIMITED study to assess valves. Technical Comments: The study quality is good. Left Ventricle: The left ventricular chamber size is normal. Global left ventricular wall motion and contractility are within normal limits. There is normal left ventricular systolic function. The estimated ejection fraction is 60-65%. Left Atrium: The left atrium is slightly dilated. No thrombus is visualized within the left atrium. There is no thrombus visualized in the left atrial appendage. Right Ventricle: The right ventricular cavity size is normal. The right ventricular global systolic function is normal. Right Atrium: The right atrium is mildly dilated. There is evidence of an atrial septal aneurysm. Aortic Valve: The aortic valve is trileaflet. The aortic valve leaflets are mildly thickened. There is a trace of aortic regurgitation. There is no evidence of aortic stenosis. There is no aortic vegetation present. Mitral Valve: The mitral valve leaflets are mildly thickened. There is a trace of mitral regurgitation. There is no evidence of mitral stenosis. No vegetation is observed on the mitral valve. Tricuspid Valve: The tricuspid valve leaflets are normal. There is trace to mild tricuspid regurgitation. There is no tricuspid stenosis. No vegetation is observed on the tricuspid valve. Pulmonic Valve: The pulmonic valve appears normal. There is a trace pulmonic regurgitation. There is no pulmonic stenosis. No vegetation is observed on the pulmonic valve. Pericardium: There is no significant pericardial effusion. Aorta: There is plaque visualized in the transverse aorta. There is minimal atherosclerotic plaque in the visualize segments of the aorta. Pulmonary Artery: The main pulmonary artery appears normal. Venous: The pulmonary veins appear normal. The pulmonary veins appear normal in size. ANDRIY Procedures: The procedure was abbreviated due to the patient's medical condition. History and physical as well as labs were reviewed. The patient was in a fasting state. Risks and benefits of the procedure, including alternatives, were discussed and written informed consent was obtained. The patient and/or their health care wholesale representative expressed understanding of the procedure, risks and benefits. Baseline and continuous monitoring of blood pressure, heart rate, pulse oximetry and heart rhythm was performed throughout the procedure. The appropriate time-out procedure was performed as per [facility] protocol. The patient was placed in the left lateral decubitus position. The patient's posterior pharynx was anesthetized with 20ml of 2% viscous lidocaine. The patient received IV Midazolam with a total dose of 5 mg. The patient received IV Fentanyl with a total dose of 100 mcg. Sedation was reversed with the use of Flumazenil 1 mg. Sedation was reversed with the use of Naloxone 0.2 mg. An oral bite block was inserted for protection of oral dentition. The multiplane transesophageal echocardiogram probe was inserted through the posterior oropharynx and advanced into the esophagus without difficulty. Multiple 2D images were obtained of the heart and its related structures. Color flow Doppler was used for evaluation. Procedure was aborted due to respiratory distress. Spectral Doppler was also used. Conclusions The procedure was abbreviated due to the patient's medical condition. The left ventricular chamber size is normal. The estimated ejection fraction is 60-65%. The left atrium is slightly dilated. The right atrium is mildly dilated. There is a trace of aortic regurgitation. There is no aortic vegetation present. There is a trace of mitral regurgitation. No vegetation is observed on the mitral valve. There is trace to mild tricuspid regurgitation. No vegetation is observed on the tricuspid valve. There is a trace pulmonic regurgitation. No vegetation is observed on the pulmonic valve.
--- NOTE | 2017-03-08 15:20 | PN ---
Subjective Date of Service: 03/08/17 Interval History: Pt is feeling ok post ANDRIY. He feels sleepy. He denies any new pain. He continues to c/o neck and left arm discomfort. No SOB. Objective Active Medications: Acetaminophen (Tylenol Tab*) 650 mg PO Q4H PRN PRN Reason: pain or fever Last Admin: 03/07/17 16:14 Dose: 650 mg Hydrocodone Bitart/Acetaminophen (Thelma 5-325 Tab*) 1 tab PO Q4H PRN PRN Reason: PAIN Last Admin: 03/08/17 05:02 Dose: 1 tab Citalopram Hydrobromide (Celexa Tab*) 40 mg PO DAILY [facility] Last Admin: 03/08/17 11:28 Dose: Not Given Cyclobenzaprine HCl (Flexeril Tab*) 10 mg PO TID PRN PRN Reason: PAIN Last Admin: 03/07/17 09:26 Dose: 10 mg Cefazolin Sodium 1 gm/ Sodium (Chloride) 50 mls @ 200 mls/hr IVPB Q6H [facility] Levothyroxine Sodium (Synthroid Tab*) 25 mcg PO DAILY@0600 [facility] Last Admin: 03/08/17 05:01 Dose: 25 mcg Morphine Sulfate (Morphine Inj (Syringe)*) 4 mg IV Q4H PRN PRN Reason: PAIN (DENTAL) Last Admin: 03/08/17 08:23 Dose: 4 mg Omeprazole (Prilosec Cap*) 20 mg PO BID [facility] Last Admin: 03/08/17 08:10 Dose: Not Given Ondansetron HCl (Zofran Inj*) 4 mg IV Q6H PRN PRN Reason: NAUSEA Vital Signs 03/07/17 03/07/17 03/07/17 15:37 16:15 18:15 Temperature 101.1 F Pulse Rate 98 Respiratory 18 18 20 Rate Blood Pressure 125/67 (mmHg) O2 Sat by Pulse 76 Oximetry 03/07/17 03/07/17 03/07/17 20:00 22:35 22:52 Temperature 101.6 F Pulse Rate 89 Respiratory 20 18 20 Rate Blood Pressure 113/61 (mmHg) O2 Sat by Pulse 100 Oximetry 03/07/17 03/08/17 03/08/17 23:20 00:35 02:28 Temperature 99.5 F Pulse Rate 88 Respiratory 16 16 20 Rate Blood Pressure 118/63 (mmHg) O2 Sat by Pulse 100 Oximetry 03/08/17 03/08/17 03/08/17 03:28 04:02 05:02 Temperature 99.2 F Pulse Rate 93 Respiratory 16 16 20 Rate Blood Pressure 116/55 (mmHg) O2 Sat by Pulse 100 Oximetry 03/08/17 03/08/17 03/08/17 07:02 07:28 07:50 Temperature 99.3 F Pulse Rate 96 Respiratory 16 16 24 Rate Blood Pressure 124/62 (mmHg) O2 Sat by Pulse 98 Oximetry 03/08/17 03/08/17 08:23 09:23 Temperature Pulse Rate Respiratory 18 22 Rate Blood Pressure (mmHg) O2 Sat by Pulse Oximetry Oxygen Devices in Use Now: None Appearance: Middle aged male sitting up in bed sleeping, awakens to voice, NAD Eyes: No Scleral Icterus Ears/Nose/Mouth/Throat: Mucous Membranes Moist Respiratory: Symmetrical Chest Expansion and Respiratory Effort, - - bibasilar crackles noted Cardiovascular: NL Sounds; No Murmurs; No JVD, RRR, No Edema Abdominal: NL Sounds; No Tenderness; No Distention Extremities: No Clubbing, Cyanosis Skin: No Rash or Ulcers, No Nodules or Sclerosis Neurological: - - sleepy but arousable Result Diagrams: 03/08/17 09:15 03/08/17 09:15 Additional Lab and Data: Lab Results 03/06/17 03/06/17 03/06/17 Range/Units 12:12 12:12 12:12 WBC 5.5 (3.5-10.8) 10^3/ul RBC 4.14 (4.0-5.4) 10^6/ul Hgb 10.7 L (14.0-18.0) g/dl Hct 32 L (42-52) % MCV 77 L (80-94) fL MCH 26 L (27-31) pg MCHC 34 (31-36) g/dl RDW 19 H (10.5-15) % Plt Count 44 L (150-450) 10^3/ul MPV 8 (7.4-10.4) um3 Neut % (Auto) 84.7 H (38-83) % Lymph % (Auto) 5.0 L (25-47) % [place] % (Auto) 10.0 H (1-9) % Eos % (Auto) 0.1 (0-6) % Baso % (Auto) 0.2 (0-2) % Absolute Neuts (auto) 4.7 (1.5-7.7) 10^3/ul Absolute Lymphs (auto) 0.3 L (1.0-4.8) 10^3/ul Absolute Monos (auto) 0.5 (0-0.8) 10^3/ul Absolute Eos (auto) 0 (0-0.6) 10^3/ul Absolute Basos (auto) 0 (0-0.2) 10^3/ul Absolute Nucleated RBC 0 10^3/ul Nucleated RBC % 0 INR (Anticoag Therapy) 1.33 H (0.89-1.11) APTT 27.6 (26.0-36.3) seconds Sodium 132 L (133-145) mmol/L Potassium 4.2 (3.5-5.0) mmol/L Chloride 100 L (101-111) mmol/L Carbon Dioxide 27 (22-32) mmol/L Anion Gap 5 (2-11) mmol/L BUN 11 (6-24) mg/dL Creatinine 0.81 (0.67-1.17) mg/dL Est GFR ( Amer) 125.4 (>60) Est GFR (Non-Af Amer) 97.5 (>60) BUN/Creatinine Ratio 13.6 (8-20) Glucose 205 H (70-100) mg/dL Lactic Acid (0.5-2.0) mmol/L Calcium 9.0 (8.6-10.3) mg/dL Total Bilirubin 3.00 H (0.2-1.0) mg/dL AST 30 (13-39) U/L ALT 23 (7-52) U/L Alkaline Phosphatase 85 (34-104) U/L C-Reactive Protein 79.09 H (< 5.00) mg/L Total Protein 6.8 (6.4-8.9) g/dL Albumin 3.5 (3.2-5.2) g/dL Globulin 3.3 (2-4) g/dL Albumin/Globulin Ratio 1.1 (1-3) Lipase 28 (11.0-82.0) U/L Urine Color Urine Appearance Urine pH (5-9) Ur Specific [place] (1.010-1.030) Urine Protein (Negative) Urine Ketones (Negative) Urine Blood (Negative) Urine Nitrate (Negative) Urine Bilirubin (Negative) Urine Urobilinogen (Negative) Ur Leukocyte Esterase (Negative) Urine WBC (Auto) (Absent) Urine RBC (Auto) (Absent) Urine Bacteria (Absent) Urine Glucose (Negative) 03/06/17 03/06/17 Range/Units 12:12 14:45 WBC (3.5-10.8) 10^3/ul RBC (4.0-5.4) 10^6/ul Hgb (14.0-18.0) g/dl Hct (42-52) % MCV (80-94) fL MCH (27-31) pg MCHC (31-36) g/dl RDW (10.5-15) % Plt Count (150-450) 10^3/ul MPV (7.4-10.4) um3 Neut % (Auto) (38-83) % Lymph % (Auto) (25-47) % [place] % (Auto) (1-9) % Eos % (Auto) (0-6) % Baso % (Auto) (0-2) % Absolute Neuts (auto) (1.5-7.7) 10^3/ul Absolute Lymphs (auto) (1.0-4.8) 10^3/ul Absolute Monos (auto) (0-0.8) 10^3/ul Absolute Eos (auto) (0-0.6) 10^3/ul Absolute Basos (auto) (0-0.2) 10^3/ul Absolute Nucleated RBC 10^3/ul Nucleated RBC % INR (Anticoag Therapy) (0.89-1.11) APTT (26.0-36.3) seconds Sodium (133-145) mmol/L Potassium (3.5-5.0) mmol/L Chloride (101-111) mmol/L Carbon Dioxide (22-32) mmol/L Anion Gap (2-11) mmol/L BUN (6-24) mg/dL Creatinine (0.67-1.17) mg/dL Est GFR ( Amer) (>60) Est GFR (Non-Af Amer) (>60) BUN/Creatinine Ratio (8-20) Glucose (70-100) mg/dL Lactic Acid 1.5 (0.5-2.0) mmol/L Calcium (8.6-10.3) mg/dL Total Bilirubin (0.2-1.0) mg/dL AST (13-39) U/L ALT (7-52) U/L Alkaline Phosphatase (34-104) U/L C-Reactive Protein (< 5.00) mg/L Total Protein (6.4-8.9) g/dL Albumin (3.2-5.2) g/dL Globulin (2-4) g/dL Albumin/Globulin Ratio (1-3) Lipase (11.0-82.0) U/L Urine Color [place] Urine Appearance Clear Urine pH 6.0 (5-9) Ur Specific [place] 1.019 (1.010-1.030) Urine Protein Negative (Negative) Urine Ketones Negative (Negative) Urine Blood 2+ H (Negative) Urine Nitrate Negative (Negative) Urine Bilirubin Negative (Negative) Urine Urobilinogen Positive H (Negative) Ur Leukocyte Esterase Negative (Negative) Urine WBC (Auto) Trace(0-5/hpf) (Absent) Urine RBC (Auto) 3+(>10/hpf) H (Absent) Urine Bacteria Absent (Absent) Urine Glucose 2+(150 mg/dl) H (Negative) Microbiology and Other Data: Microbiology 03/06/17 20:00 Legionella Urinary Antigen - Final Urine Negative Legionella Streptococcus pneumoniae Ag Screen - Final Negative S. pneumo Antigen 03/06/17 20:05 Gram Stain - Final Sputum Expectorated Assess/Plan/Problems-Billing Mr Rushing is a 57 yo M who has a h/o squamous cell ca of the head/neck s/p chemo and radiation in 2014, chronic hepatitis C, iron deficiency anemia and thrombocytopenia who presented to the ER from the [facility] with c/o fever and neck pain. - Patient Problems (1) Bacteremia due to group B Streptococcus Current Visit: Yes Status: Acute Code(s): R78.81 - BACTEREMIA SNOMED Code( s): 719156613158 Comment: The source of the bacteremia is not clear. MRI cervical and thoracic spine negative for discitis, osteo or epidural abscess. ANDRIY negative for vegetation. Repeat cultures pending from this AM. Will continue cefazolin going forward. Will be here through the weekend receiving IV Abx. (2) Thrombocytopenia Current Visit: Yes Status: Acute Code(s): D69.6 - THROMBOCYTOPENIA, UNSPECIFIED SNOMED Code(s): 952838565 Comment: This is chronic and he is essentially at his baseline. (3) Iron deficiency anemia Current Visit: Yes Status: Acute Code(s): D50.9 - IRON DEFICIENCY ANEMIA, UNSPECIFIED SNOMED Code(s): 63374878 Comment: H/H slightly lower today than on admission but still within his range. (4) Hepatic cirrhosis due to chronic hepatitis C infection Current Visit: Yes Status: Chronic Code(s): B18.2 - CHRONIC VIRAL HEPATITIS C; K74.60 - UNSPECIFIED CIRRHOSIS OF LIVER SNOMED Code(s): 530078784693 Comment: Nothing to do at this time. (5) DVT prophylaxis Current Visit: Yes Status: Acute Code(s): LSM1948 - SNOMED Code(s): 856507287 Comment: SCDs alone given thrombocytopenia (6) Full code status Current Visit: Yes Status: Acute Code(s): Z78.9 - OTHER SPECIFIED HEALTH STATUS SNOMED Code(s): 069508960
[2017-03-08] MEDS ORDERED: Vancomycin Trough Check NOTE FOLLOW UP ONE (15:30)
[2017-03-08] MEDS ORDERED: Acetaminophen SUPP* 650 MG SUPP PR PRN (19:50)
[2017-03-08] MEDS: Acetaminophen TAB* 325 MG PO PRN (20:31)
[2017-03-09] MEDS: Acetaminophen TAB* 325 MG PO PRN ×2 (04:39→19:24)
[2017-03-09] MEDS: Levothyroxine TAB* 25 MCG TAB PO SCH (05:41)
[2017-03-09] MEDS: Omeprazole CAP* 20 MG PO SCH ×2 (07:51→21:59)
[2017-03-09] MEDS: Citalopram TAB* 40 MG PO SCH (07:51)
[2017-03-09] MEDS: HYDROcodone/ACETAMIN 5-325 MG* 1 TAB PO PRN ×3 (07:52→19:12)
[2017-03-09] MEDS: ceFAZolin 1 GM VIAL(*) 1 GM in NS 0.9% 50 ML* 50 ML IVPB SCH ×2 (11:38→19:13)
--- NOTE | 2017-03-09 13:23 | PN ---
Progress Note - Progress Note Date of Service: 03/09/17 SOAP: Subjective: CC: fever HPI: 57 yo man with neck pain 3-4 weeks, fever and malaise for a few days. Neck pain better but not gone. Fever overnight, less of the time though. No sweats, chills, rash, or diarrhea. Objective: [] Vital Signs Temp 37.6 C 03/09/17 05:43 Pulse 79 03/09/17 03:22 Resp 17 03/09/17 11:53 BP 112/55 03/09/17 03:22 Pulse Ox 92 03/09/17 03:22 Intake & Output 03/08/17 03/09/17 03/09/17 18:59 06:59 18:59 Intake Total 250 125 Output Total 0 Balance 250 125 Intake: IVPB 250 ABX - VANCOMYCIN 250 Oral 0 125 Output: Urine 0 Other: Estimated Void Small # Bowel Movements 0 # Voids 3 Gen:awake, no distress HEENT:PERRL, MMM Neck:supple Heart:RRR 1/6 systolic murmur Lungs:CTA BL Abd:+BS NTND soft Skin: no rash MSK: no spine tenderness or joint tenderness Laboratory Results - last 24 hr 03/08/17 16:11 Vancomycin Trough 5.1 Microbiology 03/08/17 09:21 Aerobic Blood Culture - Preliminary Blood Venous No Growth Day 1 Anaerobic Blood Culture - Preliminary No Growth Day 1 03/08/17 09:15 Aerobic Blood Culture - Preliminary Blood Venous No Growth Day 1 Anaerobic Blood Culture - Preliminary No Growth Day 1 03/06/17 20:05 Gram Stain - Final Sputum Expectorated Sputum Culture - Final Staphylococcus Aureus 03/06/17 12:32 Aerobic Blood Culture - Final Blood Venous Strep Agalactiae - (Group B) Anaerobic Blood Culture - Final Strep Agalactiae - (Group B) Blood Culture - Final 03/06/17 12:12 Aerobic Blood Culture - Final Blood Venous Strep Agalactiae - (Group B) Anaerobic Blood Culture - Final Strep Agalactiae - (Group B) Blood Culture - Final 03/06/17 20:00 Legionella Urinary Antigen - Final Urine Negative Legionella Streptococcus pneumoniae Ag Screen - Final Negative S. pneumo Antigen Assessment: 1. Grp B Strep bacteremia, cleared; no spine infection or endocarditis (by ANDRIY) , no presiposing heart condition to make IE more likely. 2. cirrhosis and immunocompromised state from it 3. cured HCV 4. past chemo and XRT for neck cancer Plan: 1. continue ceftriaxone day 2/14 for no Strep bacteremia without a defined source
--- NOTE | 2017-03-09 13:56 | PN ---
Subjective Date of Service: 03/09/17 Interval History: Pt is feeling ok. He thinks his neck pain is a little better than it has been. He states his neck hurts more when he is sitting up however. He requests the morphine be discontinued as it makes him feel poorly. Objective Active Medications: Acetaminophen (Tylenol Tab*) 650 mg PO Q4H PRN PRN Reason: pain or fever Last Admin: 03/09/17 04:39 Dose: 650 mg Acetaminophen (Tylenol Supp*) 650 mg [place] Q6H PRN PRN Reason: FEVER Hydrocodone Bitart/Acetaminophen ([place] 5-325 Tab*) 1 tab PO Q4H PRN PRN Reason: PAIN Last Admin: 03/09/17 11:53 Dose: 1 tab Citalopram Hydrobromide (Celexa Tab*) 40 mg PO DAILY [facility] Last Admin: 03/09/17 07:51 Dose: 40 mg Cyclobenzaprine HCl (Flexeril Tab*) 10 mg PO TID PRN PRN Reason: PAIN Last Admin: 03/07/17 09:26 Dose: 10 mg Cefazolin Sodium 1 gm/ Sodium (Chloride) 50 mls @ 200 mls/hr IVPB Q6H [facility] Last Admin: 03/09/17 11:38 Dose: 200 mls/hr Levothyroxine Sodium (Synthroid Tab*) 25 mcg PO DAILY@0600 [facility] Last Admin: 03/09/17 05:41 Dose: 25 mcg Morphine Sulfate (Morphine Inj (Syringe)*) 4 mg IV Q4H PRN PRN Reason: PAIN (DENTAL) Last Admin: 03/08/17 08:23 Dose: 4 mg Omeprazole (Prilosec Cap*) 20 mg PO BID [facility] Last Admin: 03/09/17 07:51 Dose: 20 mg Ondansetron HCl (Zofran Inj*) 4 mg IV Q6H PRN PRN Reason: NAUSEA Vital Signs 03/08/17 03/08/17 03/08/17 15:30 19:00 19:29 Temperature 99.8 F 103.3 F 102.1 F Pulse Rate 79 102 Respiratory 20 20 Rate Blood Pressure 133/68 135/75 (mmHg) O2 Sat by Pulse 98 96 Oximetry 03/08/17 03/08/17 03/08/17 19:35 21:06 21:59 Temperature 101.7 F 99.8 F Pulse Rate Respiratory 22 Rate Blood Pressure (mmHg) O2 Sat by Pulse Oximetry 03/08/17 03/08/17 03/09/17 23:08 23:58 03:22 Temperature 99.6 F 98.9 F 99.3 F Pulse Rate 73 79 Respiratory 16 16 Rate Blood Pressure 115/59 112/55 (mmHg) O2 Sat by Pulse 94 92 Oximetry 03/09/17 03/09/17 03/09/17 05:43 07:52 09:52 Temperature 99.6 F Pulse Rate Respiratory 14 17 Rate Blood Pressure (mmHg) O2 Sat by Pulse Oximetry 03/09/17 11:53 Temperature Pulse Rate Respiratory 17 Rate Blood Pressure (mmHg) O2 Sat by Pulse Oximetry Oxygen Devices in Use Now: None Appearance: Middle aged male sitting up in bed, NAD Eyes: No Scleral Icterus Ears/Nose/Mouth/Throat: Mucous Membranes Moist Respiratory: Symmetrical Chest Expansion and Respiratory Effort, Clear to Auscultation - with bibasilar crackles Cardiovascular: NL Sounds; No Murmurs; No JVD, RRR, No Edema Abdominal: NL Sounds; No Tenderness; No Distention Extremities: No Clubbing, Cyanosis Skin: No Rash or Ulcers, No Nodules or Sclerosis Neurological: Alert and Oriented x 3 Result Diagrams: 03/08/17 09:15 03/08/17 09:15 Additional Lab and Data: Lab Results 03/06/17 03/06/17 03/06/17 Range/Units 12:12 12:12 12:12 WBC 5.5 (3.5-10.8) 10^3/ul RBC 4.14 (4.0-5.4) 10^6/ul Hgb 10.7 L (14.0-18.0) g/dl Hct 32 L (42-52) % MCV 77 L (80-94) fL MCH 26 L (27-31) pg MCHC 34 (31-36) g/dl RDW 19 H (10.5-15) % Plt Count 44 L (150-450) 10^3/ul MPV 8 (7.4-10.4) um3 Neut % (Auto) 84.7 H (38-83) % Lymph % (Auto) 5.0 L (25-47) % [place] % (Auto) 10.0 H (1-9) % Eos % (Auto) 0.1 (0-6) % Baso % (Auto) 0.2 (0-2) % Absolute Neuts (auto) 4.7 (1.5-7.7) 10^3/ul Absolute Lymphs (auto) 0.3 L (1.0-4.8) 10^3/ul Absolute Monos (auto) 0.5 (0-0.8) 10^3/ul Absolute Eos (auto) 0 (0-0.6) 10^3/ul Absolute Basos (auto) 0 (0-0.2) 10^3/ul Absolute Nucleated RBC 0 10^3/ul Nucleated RBC % 0 INR (Anticoag Therapy) 1.33 H (0.89-1.11) APTT 27.6 (26.0-36.3) seconds Sodium 132 L (133-145) mmol/L Potassium 4.2 (3.5-5.0) mmol/L Chloride 100 L (101-111) mmol/L Carbon Dioxide 27 (22-32) mmol/L Anion Gap 5 (2-11) mmol/L BUN 11 (6-24) mg/dL Creatinine 0.81 (0.67-1.17) mg/dL Est GFR ( Amer) 125.4 (>60) Est GFR (Non-Af Amer) 97.5 (>60) BUN/Creatinine Ratio 13.6 (8-20) Glucose 205 H (70-100) mg/dL Lactic Acid (0.5-2.0) mmol/L Calcium 9.0 (8.6-10.3) mg/dL Total Bilirubin 3.00 H (0.2-1.0) mg/dL AST 30 (13-39) U/L ALT 23 (7-52) U/L Alkaline Phosphatase 85 (34-104) U/L C-Reactive Protein 79.09 H (< 5.00) mg/L Total Protein 6.8 (6.4-8.9) g/dL Albumin 3.5 (3.2-5.2) g/dL Globulin 3.3 (2-4) g/dL Albumin/Globulin Ratio 1.1 (1-3) Lipase 28 (11.0-82.0) U/L Urine Color Urine Appearance Urine pH (5-9) Ur Specific [place] (1.010-1.030) Urine Protein (Negative) Urine Ketones (Negative) Urine Blood (Negative) Urine Nitrate (Negative) Urine Bilirubin (Negative) Urine Urobilinogen (Negative) Ur Leukocyte Esterase (Negative) Urine WBC (Auto) (Absent) Urine RBC (Auto) (Absent) Urine Bacteria (Absent) Urine Glucose (Negative) 03/06/17 03/06/17 Range/Units 12:12 14:45 WBC (3.5-10.8) 10^3/ul RBC (4.0-5.4) 10^6/ul Hgb (14.0-18.0) g/dl Hct (42-52) % MCV (80-94) fL MCH (27-31) pg MCHC (31-36) g/dl RDW (10.5-15) % Plt Count (150-450) 10^3/ul MPV (7.4-10.4) um3 Neut % (Auto) (38-83) % Lymph % (Auto) (25-47) % [place] % (Auto) (1-9) % Eos % (Auto) (0-6) % Baso % (Auto) (0-2) % Absolute Neuts (auto) (1.5-7.7) 10^3/ul Absolute Lymphs (auto) (1.0-4.8) 10^3/ul Absolute Monos (auto) (0-0.8) 10^3/ul Absolute Eos (auto) (0-0.6) 10^3/ul Absolute Basos (auto) (0-0.2) 10^3/ul Absolute Nucleated RBC 10^3/ul Nucleated RBC % INR (Anticoag Therapy) (0.89-1.11) APTT (26.0-36.3) seconds Sodium (133-145) mmol/L Potassium (3.5-5.0) mmol/L Chloride (101-111) mmol/L Carbon Dioxide (22-32) mmol/L Anion Gap (2-11) mmol/L BUN (6-24) mg/dL Creatinine (0.67-1.17) mg/dL Est GFR ( Amer) (>60) Est GFR (Non-Af Amer) (>60) BUN/Creatinine Ratio (8-20) Glucose (70-100) mg/dL Lactic Acid 1.5 (0.5-2.0) mmol/L Calcium (8.6-10.3) mg/dL Total Bilirubin (0.2-1.0) mg/dL AST (13-39) U/L ALT (7-52) U/L Alkaline Phosphatase (34-104) U/L C-Reactive Protein (< 5.00) mg/L Total Protein (6.4-8.9) g/dL Albumin (3.2-5.2) g/dL Globulin (2-4) g/dL Albumin/Globulin Ratio (1-3) Lipase (11.0-82.0) U/L Urine Color [place] Urine Appearance Clear Urine pH 6.0 (5-9) Ur Specific [place] 1.019 (1.010-1.030) Urine Protein Negative (Negative) Urine Ketones Negative (Negative) Urine Blood 2+ H (Negative) Urine Nitrate Negative (Negative) Urine Bilirubin Negative (Negative) Urine Urobilinogen Positive H (Negative) Ur Leukocyte Esterase Negative (Negative) Urine WBC (Auto) Trace(0-5/hpf) (Absent) Urine RBC (Auto) 3+(>10/hpf) H (Absent) Urine Bacteria Absent (Absent) Urine Glucose 2+(150 mg/dl) H (Negative) Microbiology and Other Data: Microbiology 03/06/17 20:00 Legionella Urinary Antigen - Final Urine Negative Legionella Streptococcus pneumoniae Ag Screen - Final Negative S. pneumo Antigen 03/06/17 20:05 Gram Stain - Final Sputum Expectorated Assess/Plan/Problems-Billing Mr Rushing is a 57 yo M who has a h/o squamous cell ca of the head/neck s/p chemo and radiation in 2014, chronic hepatitis C, iron deficiency anemia and thrombocytopenia who presented to the ER from the [facility] with c/o fever and neck pain. - Patient Problems (1) Bacteremia due to group B Streptococcus Current Visit: Yes Status: Acute Code(s): R78.81 - BACTEREMIA SNOMED Code( s): 767211053875 Comment: The source of the bacteremia is not clear. Plan will be for 2 weeks of Abx therapy for the strep bacteremia. It is unclear if the staph found in his sputum is a pathogen. Continue cefazolin for now. (2) Thrombocytopenia Current Visit: Yes Status: Acute Code(s): D69.6 - THROMBOCYTOPENIA, UNSPECIFIED SNOMED Code(s): 882906851 Comment: This is chronic and he is essentially at his baseline. (3) Iron deficiency anemia Current Visit: Yes Status: Acute Code(s): D50.9 - IRON DEFICIENCY ANEMIA, UNSPECIFIED SNOMED Code(s): 10243912 Comment: Repeat CBC pending for tomorrow AM. (4) Hepatic cirrhosis due to chronic hepatitis C infection Current Visit: Yes Status: Chronic Code(s): B18.2 - CHRONIC VIRAL HEPATITIS C; K74.60 - UNSPECIFIED CIRRHOSIS OF LIVER SNOMED Code(s): 864329194380 Comment: Nothing to do at this time. Pt has been treated. (5) DVT prophylaxis Current Visit: Yes Status: Acute Code(s): BPB4052 - SNOMED Code(s): 715279718 Comment: SCDs alone given thrombocytopenia (6) Full code status Current Visit: Yes Status: Acute Code(s): Z78.9 - OTHER SPECIFIED HEALTH STATUS SNOMED Code(s): 446627665
[2017-03-09] MEDS: Gabapentin CAP(*) 100 MG PO SCH ×2 (15:22→21:58)
[2017-03-10] MEDS: ceFAZolin 1 GM VIAL(*) 1 GM in NS 0.9% 50 ML* 50 ML IVPB SCH ×4 (00:39→18:24)
[2017-03-10] MEDS: Cyclobenzaprine TAB* 10 MG PO PRN (00:52)
[2017-03-10] MEDS: HYDROcodone/ACETAMIN 5-325 MG* 1 TAB PO PRN ×4 (03:43→21:22)
[2017-03-10] MEDS: Levothyroxine TAB* 25 MCG TAB PO SCH (06:04)
[2017-03-10 07:52] LABS: Comments Flag Yes; Hematocrit 27 % (42-52); Hemoglobin 9.4 g/dl (14.0-18.0); Mean Corpuscular HGB Conc 35 g/dl (31-36); Mean Corpuscular Hemoglobin 26 pg (27-31); Mean Corpuscular Volume 76 fL (80-94); Mean Platelet Volume 8 um3 (7.4-10.4); Red Cell Distribution Width 19 % (10.5-15); White Blood Count 2.7 10^3/ul (3.5-10.8)
[2017-03-10 08:03] LABS: BUN/Creatinine Ratio 10.9 (8-20); Calcium 8.5 mg/dL (8.6-10.3); EGFR African American 164.6 (>60); Potassium 3.6 mmol/L (3.5-5.0)
[2017-03-10] MEDS: Gabapentin CAP(*) 100 MG PO SCH ×3 (08:28→21:18)
[2017-03-10] MEDS: Citalopram TAB* 40 MG PO SCH (08:29)
[2017-03-10] MEDS: Omeprazole CAP* 20 MG PO SCH ×2 (08:29→21:18)
[2017-03-10] MEDS: Acetaminophen TAB* 325 MG PO PRN ×2 (08:34→19:08)
[2017-03-10] MEDS: Docusate CAP* 100 MG PO PRN (08:54)
--- NOTE | 2017-03-10 10:05 | PN ---
Subjective Date of Service: 03/10/17 Interval History: Pt is feeling ok today. He continue to have the neck pain radiating down his left arm. He does not think the gabapentin has helped really. He has not had a BM in about 5 days now and asks for a stool softner. Objective Active Medications: Acetaminophen (Tylenol Tab*) 650 mg PO Q4H PRN PRN Reason: pain or fever Last Admin: 03/10/17 08:34 Dose: 650 mg Hydrocodone Bitart/Acetaminophen ([place] 5-325 Tab*) 1 tab PO Q4H PRN PRN Reason: PAIN Last Admin: 03/10/17 08:28 Dose: 1 tab Citalopram Hydrobromide (Celexa Tab*) 40 mg PO DAILY [facility] Last Admin: 03/10/17 08:29 Dose: 40 mg Cyclobenzaprine HCl (Flexeril Tab*) 10 mg PO TID PRN PRN Reason: PAIN Last Admin: 03/10/17 00:52 Dose: 10 mg Docusate Sodium (Colace Cap*) 100 mg PO BID PRN PRN Reason: CONSTIPATION Last Admin: 03/10/17 08:54 Dose: 100 mg Gabapentin (Neurontin Cap(*)) 100 mg PO TID [facility] Last Admin: 03/10/17 08:28 Dose: 100 mg Cefazolin Sodium 1 gm/ Sodium (Chloride) 50 mls @ 200 mls/hr IVPB Q6H [facility] Last Admin: 03/10/17 06:05 Dose: 200 mls/hr Levothyroxine Sodium (Synthroid Tab*) 25 mcg PO DAILY@0600 [facility] Last Admin: 03/10/17 06:04 Dose: 25 mcg Omeprazole (Prilosec Cap*) 20 mg PO BID [facility] Last Admin: 03/10/17 08:29 Dose: 20 mg Ondansetron HCl (Zofran Inj*) 4 mg IV Q6H PRN PRN Reason: NAUSEA Senna (Senokot Tab*) 1 tab PO BEDTIME PRN PRN Reason: CONSTIPATION Vital Signs 03/09/17 03/09/17 03/09/17 09:52 11:29 11:53 Temperature 98.6 F Pulse Rate 66 Respiratory 17 20 17 Rate Blood Pressure 111/65 (mmHg) O2 Sat by Pulse 97 Oximetry 03/09/17 03/09/17 03/09/17 13:53 15:22 15:33 Temperature 99.5 F Pulse Rate 82 Respiratory 16 19 20 Rate Blood Pressure 110/59 (mmHg) O2 Sat by Pulse 95 Oximetry 03/09/17 03/09/17 03/09/17 16:00 17:22 19:11 Temperature 102.1 F Pulse Rate 91 Respiratory 16 16 Rate Blood Pressure 127/56 (mmHg) O2 Sat by Pulse 95 93 Oximetry 03/09/17 03/09/17 03/09/17 19:12 20:00 21:12 Temperature Pulse Rate Respiratory 16 16 16 Rate Blood Pressure (mmHg) O2 Sat by Pulse Oximetry 03/09/17 03/09/17 03/09/17 21:58 23:44 23:58 Temperature 99.0 F Pulse Rate 69 Respiratory 16 20 16 Rate Blood Pressure 102/50 (mmHg) O2 Sat by Pulse 91 Oximetry 03/10/17 03/10/17 03/10/17 00:00 00:52 02:52 Temperature Pulse Rate Respiratory 20 20 Rate Blood Pressure (mmHg) O2 Sat by Pulse 93 Oximetry 03/10/17 03/10/17 03/10/17 03:43 05:43 07:35 Temperature 99.1 F Pulse Rate 73 Respiratory 20 19 18 Rate Blood Pressure 112/51 (mmHg) O2 Sat by Pulse 94 Oximetry 03/10/17 08:28 Temperature Pulse Rate Respiratory 18 Rate Blood Pressure (mmHg) O2 Sat by Pulse Oximetry Oxygen Devices in Use Now: None Appearance: Middle aged male lying in bed, NAD Eyes: No Scleral Icterus Ears/Nose/Mouth/Throat: Mucous Membranes Moist Respiratory: Symmetrical Chest Expansion and Respiratory Effort, Clear to Auscultation Cardiovascular: NL Sounds; No Murmurs; No JVD, RRR, No Edema Abdominal: NL Sounds; No Tenderness; No Distention Extremities: No Clubbing, Cyanosis Skin: No Rash or Ulcers, No Nodules or Sclerosis Neurological: Alert and Oriented x 3 Result Diagrams: 03/10/17 07:32 03/10/17 07:32 Additional Lab and Data: Lab Results 03/06/17 03/06/17 03/06/17 Range/Units 12:12 12:12 12:12 WBC 5.5 (3.5-10.8) 10^3/ul RBC 4.14 (4.0-5.4) 10^6/ul Hgb 10.7 L (14.0-18.0) g/dl Hct 32 L (42-52) % MCV 77 L (80-94) fL MCH 26 L (27-31) pg MCHC 34 (31-36) g/dl RDW 19 H (10.5-15) % Plt Count 44 L (150-450) 10^3/ul MPV 8 (7.4-10.4) um3 Neut % (Auto) 84.7 H (38-83) % Lymph % (Auto) 5.0 L (25-47) % Todd % (Auto) 10.0 H (1-9) % Eos % (Auto) 0.1 (0-6) % Baso % (Auto) 0.2 (0-2) % Absolute Neuts (auto) 4.7 (1.5-7.7) 10^3/ul Absolute Lymphs (auto) 0.3 L (1.0-4.8) 10^3/ul Absolute Monos (auto) 0.5 (0-0.8) 10^3/ul Absolute Eos (auto) 0 (0-0.6) 10^3/ul Absolute Basos (auto) 0 (0-0.2) 10^3/ul Absolute Nucleated RBC 0 10^3/ul Nucleated RBC % 0 INR (Anticoag Therapy) 1.33 H (0.89-1.11) APTT 27.6 (26.0-36.3) seconds Sodium 132 L (133-145) mmol/L Potassium 4.2 (3.5-5.0) mmol/L Chloride 100 L (101-111) mmol/L Carbon Dioxide 27 (22-32) mmol/L Anion Gap 5 (2-11) mmol/L BUN 11 (6-24) mg/dL Creatinine 0.81 (0.67-1.17) mg/dL Est GFR ( Amer) 125.4 (>60) Est GFR (Non-Af Amer) 97.5 (>60) BUN/Creatinine Ratio 13.6 (8-20) Glucose 205 H (70-100) mg/dL Lactic Acid (0.5-2.0) mmol/L Calcium 9.0 (8.6-10.3) mg/dL Total Bilirubin 3.00 H (0.2-1.0) mg/dL AST 30 (13-39) U/L ALT 23 (7-52) U/L Alkaline Phosphatase 85 (34-104) U/L C-Reactive Protein 79.09 H (< 5.00) mg/L Total Protein 6.8 (6.4-8.9) g/dL Albumin 3.5 (3.2-5.2) g/dL Globulin 3.3 (2-4) g/dL Albumin/Globulin Ratio 1.1 (1-3) Lipase 28 (11.0-82.0) U/L Urine Color Urine Appearance Urine pH (5-9) Ur Specific [place] (1.010-1.030) Urine Protein (Negative) Urine Ketones (Negative) Urine Blood (Negative) Urine Nitrate (Negative) Urine Bilirubin (Negative) Urine Urobilinogen (Negative) Ur Leukocyte Esterase (Negative) Urine WBC (Auto) (Absent) Urine RBC (Auto) (Absent) Urine Bacteria (Absent) Urine Glucose (Negative) 03/06/17 03/06/17 Range/Units 12:12 14:45 WBC (3.5-10.8) 10^3/ul RBC (4.0-5.4) 10^6/ul Hgb (14.0-18.0) g/dl Hct (42-52) % MCV (80-94) fL MCH (27-31) pg MCHC (31-36) g/dl RDW (10.5-15) % Plt Count (150-450) 10^3/ul MPV (7.4-10.4) um3 Neut % (Auto) (38-83) % Lymph % (Auto) (25-47) % Todd % (Auto) (1-9) % Eos % (Auto) (0-6) % Baso % (Auto) (0-2) % Absolute Neuts (auto) (1.5-7.7) 10^3/ul Absolute Lymphs (auto) (1.0-4.8) 10^3/ul Absolute Monos (auto) (0-0.8) 10^3/ul Absolute Eos (auto) (0-0.6) 10^3/ul Absolute Basos (auto) (0-0.2) 10^3/ul Absolute Nucleated RBC 10^3/ul Nucleated RBC % INR (Anticoag Therapy) (0.89-1.11) APTT (26.0-36.3) seconds Sodium (133-145) mmol/L Potassium (3.5-5.0) mmol/L Chloride (101-111) mmol/L Carbon Dioxide (22-32) mmol/L Anion Gap (2-11) mmol/L BUN (6-24) mg/dL Creatinine (0.67-1.17) mg/dL Est GFR ( Amer) (>60) Est GFR (Non-Af Amer) (>60) BUN/Creatinine Ratio (8-20) Glucose (70-100) mg/dL Lactic Acid 1.5 (0.5-2.0) mmol/L Calcium (8.6-10.3) mg/dL Total Bilirubin (0.2-1.0) mg/dL AST (13-39) U/L ALT (7-52) U/L Alkaline Phosphatase (34-104) U/L C-Reactive Protein (< 5.00) mg/L Total Protein (6.4-8.9) g/dL Albumin (3.2-5.2) g/dL Globulin (2-4) g/dL Albumin/Globulin Ratio (1-3) Lipase (11.0-82.0) U/L Urine Color [place]alba Urine Appearance Clear Urine pH 6.0 (5-9) Ur Specific [place] 1.019 (1.010-1.030) Urine Protein Negative (Negative) Urine Ketones Negative (Negative) Urine Blood 2+ H (Negative) Urine Nitrate Negative (Negative) Urine Bilirubin Negative (Negative) Urine Urobilinogen Positive H (Negative) Ur Leukocyte Esterase Negative (Negative) Urine WBC (Auto) Trace(0-5/hpf) (Absent) Urine RBC (Auto) 3+(>10/hpf) H (Absent) Urine Bacteria Absent (Absent) Urine Glucose 2+(150 mg/dl) H (Negative) Microbiology and Other Data: Microbiology 03/06/17 20:00 Legionella Urinary Antigen - Final Urine Negative Legionella Streptococcus pneumoniae Ag Screen - Final Negative S. pneumo Antigen 03/06/17 20:05 Gram Stain - Final Sputum Expectorated Assess/Plan/Problems-Billing Mr Rushing is a 57 yo M who has a h/o squamous cell ca of the head/neck s/p chemo and radiation in 2015, chronic hepatitis C, iron deficiency anemia and thrombocytopenia who presented to the ER from the [facility] center with c/o fever and neck pain. - Patient Problems (1) Bacteremia due to group B Streptococcus Current Visit: Yes Status: Acute Code(s): R78.81 - BACTEREMIA SNOMED Code( s): 484084963174 Comment: The source of the bacteremia is not clear. Continue cefazolin for now. He is still having fevers up to 102 but overall his fever curve is improving. Await any further recommendations from Dr. Strong tomorrow. (2) Thrombocytopenia Current Visit: Yes Status: Acute Code(s): D69.6 - THROMBOCYTOPENIA, UNSPECIFIED SNOMED Code(s): 604649705 Comment: This is chronic and he is essentially at his baseline. (3) Iron deficiency anemia Current Visit: Yes Status: Acute Code(s): D50.9 - IRON DEFICIENCY ANEMIA, UNSPECIFIED SNOMED Code(s): 11472775 Comment: H/H stable. Continue to follow intermittently. (4) Hepatic cirrhosis due to chronic hepatitis C infection Current Visit: Yes Status: Chronic Code(s): B18.2 - CHRONIC VIRAL HEPATITIS C; K74.60 - UNSPECIFIED CIRRHOSIS OF LIVER SNOMED Code(s): 283385167882 Comment: Nothing to do at this time. Pt has been treated. (5) DVT prophylaxis Current Visit: Yes Status: Acute Code(s): PVY1640 - SNOMED Code(s): 212921955 Comment: SCDs alone given thrombocytopenia (6) Full code status Current Visit: Yes Status: Acute Code(s): Z78.9 - OTHER SPECIFIED HEALTH STATUS SNOMED Code(s): 836768550
[2017-03-10] MEDS: Senna TAB PO PRN (18:28)
[2017-03-11] MEDS: traMADol TAB* 50 MG PO PRN ×2 (00:40→15:56)
[2017-03-11] MEDS: ceFAZolin 1 GM VIAL(*) 1 GM in NS 0.9% 50 ML* 50 ML IVPB SCH ×4 (00:47→21:00)
[2017-03-11] MEDS: HYDROcodone/ACETAMIN 5-325 MG* 1 TAB PO PRN ×4 (01:42→19:08)
[2017-03-11] MEDS ORDERED: Ketorolac INJ* 15 MG/ML 1 ML VIAL IV ONE ×2 (04:02→19:23)
[2017-03-11] MEDS: Levothyroxine TAB* 25 MCG TAB PO SCH (05:50)
[2017-03-11] MEDS: Gabapentin CAP(*) 100 MG PO SCH ×3 (09:41→20:45)
[2017-03-11] MEDS: Citalopram TAB* 40 MG PO SCH (09:43)
[2017-03-11] MEDS: Omeprazole CAP* 20 MG PO SCH ×2 (09:43→20:45)
[2017-03-11] MEDS: Senna TAB PO PRN (09:44)
[2017-03-11] MEDS: Docusate CAP* 100 MG PO PRN (09:53)
--- NOTE | 2017-03-11 11:16 | PN ---
Subjective Date of Service: 03/11/17 Interval History: Pt is feeling about the same. He states he was just doing some exercises that OT /PT taught him in bed. He states the pain in his neck is unchanged. He feels the pain down his neck, both arms now, down his back and chest. He still has not had a BM. Objective Active Medications: Acetaminophen (Tylenol Tab*) 650 mg PO Q4H PRN PRN Reason: pain or fever Last Admin: 03/10/17 19:08 Dose: 650 mg Hydrocodone Bitart/Acetaminophen ([place] 5-325 Tab*) 1 tab PO Q4H PRN PRN Reason: PAIN Last Admin: 03/11/17 09:40 Dose: 1 tab Citalopram Hydrobromide (Celexa Tab*) 40 mg PO DAILY [facility] Last Admin: 03/11/17 09:43 Dose: 40 mg Cyclobenzaprine HCl (Flexeril Tab*) 10 mg PO TID PRN PRN Reason: PAIN Last Admin: 03/10/17 00:52 Dose: 10 mg Docusate Sodium (Colace Cap*) 100 mg PO BID PRN PRN Reason: CONSTIPATION Last Admin: 03/11/17 09:53 Dose: 100 mg Gabapentin (Neurontin Cap(*)) 100 mg PO TID [facility] Last Admin: 03/11/17 09:41 Dose: 100 mg Cefazolin Sodium 1 gm/ Sodium (Chloride) 50 mls @ 200 mls/hr IVPB Q6H [facility] Last Admin: 03/11/17 05:51 Dose: 200 mls/hr Levothyroxine Sodium (Synthroid Tab*) 25 mcg PO DAILY@0600 [facility] Last Admin: 03/11/17 05:50 Dose: 25 mcg Omeprazole (Prilosec Cap*) 20 mg PO BID [facility] Last Admin: 03/11/17 09:43 Dose: 20 mg Ondansetron HCl (Zofran Inj*) 4 mg IV Q6H PRN PRN Reason: NAUSEA Senna (Senokot Tab*) 1 tab PO BEDTIME PRN PRN Reason: CONSTIPATION Last Admin: 03/11/17 09:44 Dose: 1 tab Tramadol HCl (Ultram*) 50 mg PO Q6H PRN PRN Reason: PAIN Last Admin: 03/11/17 00:40 Dose: 50 mg Vital Signs 03/10/17 03/10/17 03/10/17 13:31 13:32 15:31 Temperature Pulse Rate Respiratory 17 17 18 Rate Blood Pressure (mmHg) O2 Sat by Pulse Oximetry 03/10/17 03/10/17 03/10/17 15:32 20:00 21:18 Temperature 100.3 F Pulse Rate 78 Respiratory 18 18 18 Rate Blood Pressure 132/71 (mmHg) O2 Sat by Pulse 94 Oximetry 03/10/17 03/10/17 03/10/17 21:22 22:01 23:18 Temperature Pulse Rate Respiratory 18 18 Rate Blood Pressure (mmHg) O2 Sat by Pulse 97 Oximetry 03/10/17 03/11/17 03/11/17 23:22 00:00 00:35 Temperature 98.4 F Pulse Rate 70 Respiratory 20 20 Rate Blood Pressure 139/66 (mmHg) O2 Sat by Pulse 97 99 Oximetry 03/11/17 03/11/17 03/11/17 00:40 01:42 02:40 Temperature Pulse Rate Respiratory 18 18 18 Rate Blood Pressure (mmHg) O2 Sat by Pulse Oximetry 03/11/17 03/11/17 03/11/17 03:42 07:34 09:25 Temperature 98.4 F Pulse Rate 57 Respiratory 18 16 16 Rate Blood Pressure 109/57 (mmHg) O2 Sat by Pulse 98 Oximetry 03/11/17 03/11/17 09:40 09:41 Temperature Pulse Rate Respiratory 16 16 Rate Blood Pressure (mmHg) O2 Sat by Pulse Oximetry Oxygen Devices in Use Now: None Appearance: Middle aged male sitting up in bed, NAD Eyes: No Scleral Icterus Ears/Nose/Mouth/Throat: Mucous Membranes Moist Respiratory: Symmetrical Chest Expansion and Respiratory Effort, Clear to Auscultation Cardiovascular: NL Sounds; No Murmurs; No JVD, RRR, No Edema Abdominal: NL Sounds; No Tenderness; No Distention Extremities: No Clubbing, Cyanosis Skin: No Rash or Ulcers, No Nodules or Sclerosis Neurological: Alert and Oriented x 3 Result Diagrams: 03/10/17 07:32 03/10/17 07:32 Additional Lab and Data: Lab Results 03/06/17 03/06/17 03/06/17 Range/Units 12:12 12:12 12:12 WBC 5.5 (3.5-10.8) 10^3/ul RBC 4.14 (4.0-5.4) 10^6/ul Hgb 10.7 L (14.0-18.0) g/dl Hct 32 L (42-52) % MCV 77 L (80-94) fL MCH 26 L (27-31) pg MCHC 34 (31-36) g/dl RDW 19 H (10.5-15) % Plt Count 44 L (150-450) 10^3/ul MPV 8 (7.4-10.4) um3 Neut % (Auto) 84.7 H (38-83) % Lymph % (Auto) 5.0 L (25-47) % Sterling % (Auto) 10.0 H (1-9) % Eos % (Auto) 0.1 (0-6) % Baso % (Auto) 0.2 (0-2) % Absolute Neuts (auto) 4.7 (1.5-7.7) 10^3/ul Absolute Lymphs (auto) 0.3 L (1.0-4.8) 10^3/ul Absolute Monos (auto) 0.5 (0-0.8) 10^3/ul Absolute Eos (auto) 0 (0-0.6) 10^3/ul Absolute Basos (auto) 0 (0-0.2) 10^3/ul Absolute Nucleated RBC 0 10^3/ul Nucleated RBC % 0 INR (Anticoag Therapy) 1.33 H (0.89-1.11) APTT 27.6 (26.0-36.3) seconds Sodium 132 L (133-145) mmol/L Potassium 4.2 (3.5-5.0) mmol/L Chloride 100 L (101-111) mmol/L Carbon Dioxide 27 (22-32) mmol/L Anion Gap 5 (2-11) mmol/L BUN 11 (6-24) mg/dL Creatinine 0.81 (0.67-1.17) mg/dL Est GFR ( Amer) 125.4 (>60) Est GFR (Non-Af Amer) 97.5 (>60) BUN/Creatinine Ratio 13.6 (8-20) Glucose 205 H (70-100) mg/dL Lactic Acid (0.5-2.0) mmol/L Calcium 9.0 (8.6-10.3) mg/dL Total Bilirubin 3.00 H (0.2-1.0) mg/dL AST 30 (13-39) U/L ALT 23 (7-52) U/L Alkaline Phosphatase 85 (34-104) U/L C-Reactive Protein 79.09 H (< 5.00) mg/L Total Protein 6.8 (6.4-8.9) g/dL Albumin 3.5 (3.2-5.2) g/dL Globulin 3.3 (2-4) g/dL Albumin/Globulin Ratio 1.1 (1-3) Lipase 28 (11.0-82.0) U/L Urine Color Urine Appearance Urine pH (5-9) Ur Specific [place] (1.010-1.030) Urine Protein (Negative) Urine Ketones (Negative) Urine Blood (Negative) Urine Nitrate (Negative) Urine Bilirubin (Negative) Urine Urobilinogen (Negative) Ur Leukocyte Esterase (Negative) Urine WBC (Auto) (Absent) Urine RBC (Auto) (Absent) Urine Bacteria (Absent) Urine Glucose (Negative) 03/06/17 03/06/17 Range/Units 12:12 14:45 WBC (3.5-10.8) 10^3/ul RBC (4.0-5.4) 10^6/ul Hgb (14.0-18.0) g/dl Hct (42-52) % MCV (80-94) fL MCH (27-31) pg MCHC (31-36) g/dl RDW (10.5-15) % Plt Count (150-450) 10^3/ul MPV (7.4-10.4) um3 Neut % (Auto) (38-83) % Lymph % (Auto) (25-47) % Sterling % (Auto) (1-9) % Eos % (Auto) (0-6) % Baso % (Auto) (0-2) % Absolute Neuts (auto) (1.5-7.7) 10^3/ul Absolute Lymphs (auto) (1.0-4.8) 10^3/ul Absolute Monos (auto) (0-0.8) 10^3/ul Absolute Eos (auto) (0-0.6) 10^3/ul Absolute Basos (auto) (0-0.2) 10^3/ul Absolute Nucleated RBC 10^3/ul Nucleated RBC % INR (Anticoag Therapy) (0.89-1.11) APTT (26.0-36.3) seconds Sodium (133-145) mmol/L Potassium (3.5-5.0) mmol/L Chloride (101-111) mmol/L Carbon Dioxide (22-32) mmol/L Anion Gap (2-11) mmol/L BUN (6-24) mg/dL Creatinine (0.67-1.17) mg/dL Est GFR ( Amer) (>60) Est GFR (Non-Af Amer) (>60) BUN/Creatinine Ratio (8-20) Glucose (70-100) mg/dL Lactic Acid 1.5 (0.5-2.0) mmol/L Calcium (8.6-10.3) mg/dL Total Bilirubin (0.2-1.0) mg/dL AST (13-39) U/L ALT (7-52) U/L Alkaline Phosphatase (34-104) U/L C-Reactive Protein (< 5.00) mg/L Total Protein (6.4-8.9) g/dL Albumin (3.2-5.2) g/dL Globulin (2-4) g/dL Albumin/Globulin Ratio (1-3) Lipase (11.0-82.0) U/L Urine Color Rosalba Urine Appearance Clear Urine pH 6.0 (5-9) Ur Specific [place] 1.019 (1.010-1.030) Urine Protein Negative (Negative) Urine Ketones Negative (Negative) Urine Blood 2+ H (Negative) Urine Nitrate Negative (Negative) Urine Bilirubin Negative (Negative) Urine Urobilinogen Positive H (Negative) Ur Leukocyte Esterase Negative (Negative) Urine WBC (Auto) Trace(0-5/hpf) (Absent) Urine RBC (Auto) 3+(>10/hpf) H (Absent) Urine Bacteria Absent (Absent) Urine Glucose 2+(150 mg/dl) H (Negative) Microbiology and Other Data: Microbiology 03/06/17 20:00 Legionella Urinary Antigen - Final Urine Negative Legionella Streptococcus pneumoniae Ag Screen - Final Negative S. pneumo Antigen 03/06/17 20:05 Gram Stain - Final Sputum Expectorated Assess/Plan/Problems-Billing Mr Rushing is a 57 yo M who has a h/o squamous cell ca of the head/neck s/p chemo and radiation in 2015, chronic hepatitis C, iron deficiency anemia and thrombocytopenia who presented to the ER from the infusion center with c/o fever and neck pain. - Patient Problems (1) Bacteremia due to group B Streptococcus Current Visit: Yes Status: Acute Code(s): R78.81 - BACTEREMIA SNOMED Code( s): 062818251433 Comment: The bacteremia source has not been identified. Dr. Strong wants 14 days total of IV Abx. Will try to get a PICC and get this arranged. Once the PICC is in place will change to ceftriaxone to complete the needed days. The ceftriaxone will also cover the staph found in his sputum. (2) Neck pain Current Visit: Yes Status: Acute Code(s): M54.2 - CERVICALGIA SNOMED Code( s): 70900707 Comment: I suspect this is musculoskeletal. He states the pain is better than on admission but still quite painful. We talked about massage which he will look into. Will continue gabapentin, flexeril and norco. He thinks he will be able to manage the pain at home when he is discharged. (3) Thrombocytopenia Current Visit: Yes Status: Acute Code(s): D69.6 - THROMBOCYTOPENIA, UNSPECIFIED SNOMED Code(s): 854985599 Comment: This is chronic and he is essentially at his baseline. (4) Iron deficiency anemia Current Visit: Yes Status: Acute Code(s): D50.9 - IRON DEFICIENCY ANEMIA, UNSPECIFIED SNOMED Code(s): 14397455 Comment: H/H stable. Continue to follow intermittently. (5) Hepatic cirrhosis due to chronic hepatitis C infection Current Visit: Yes Status: Chronic Code(s): B18.2 - CHRONIC VIRAL HEPATITIS C; K74.60 - UNSPECIFIED CIRRHOSIS OF LIVER SNOMED Code(s): 820878271088 Comment: Nothing to do at this time. Pt has been treated. (6) DVT prophylaxis Current Visit: Yes Status: Acute Code(s): ODP4297 - SNOMED Code(s): 910590721 Comment: SCDs alone given thrombocytopenia (7) Full code status Current Visit: Yes Status: Acute Code(s): Z78.9 - OTHER SPECIFIED HEALTH STATUS SNOMED Code(s): 277613083
[2017-03-12] MEDS: ceFAZolin 1 GM VIAL(*) 1 GM in NS 0.9% 50 ML* 50 ML IVPB SCH ×2 (02:43→08:02)
[2017-03-12] MEDS: traMADol TAB* 50 MG PO PRN ×2 (04:18→10:20)
[2017-03-12] MEDS: HYDROcodone/ACETAMIN 5-325 MG* 1 TAB PO PRN ×3 (05:35→14:11)
[2017-03-12] MEDS: Levothyroxine TAB* 25 MCG TAB PO SCH (05:35)
[2017-03-12] MEDS ORDERED: HYDROmorphone* 1 MG/ML 1 ML CARPUJECT IV ONE (06:05)
[2017-03-12] MEDS: Gabapentin CAP(*) 100 MG PO SCH ×2 (08:01→14:11)
[2017-03-12] MEDS: Omeprazole CAP* 20 MG PO SCH (08:01)
[2017-03-12] MEDS: Citalopram TAB* 40 MG PO SCH (08:01)
[2017-03-12 11:50] VITALS: BP 132/62
[2017-03-12] MEDS ORDERED: cefTRIAXone VIAL(*) 1,000 MG in NS 0.9% 50 ML* 50 ML IVPB SCH (12:00)
[2017-03-12] MEDS ORDERED: Polyethylene Glycol 3350* 17 GM PACKET PO PRN (12:35)
--- NOTE | 2017-03-12 12:51 | PN ---
"Progress Note - Progress Note Date of Service: 03/12/17 Note: Time spent on discharge 50 minutes. Search Terms: del bowman, 1960 Search Date: 03/12/2017 12:02:43 PM The Drug Utilization Report below displays all of the controlled substance prescriptions, if any, that your patient has filled in the last twelve months. The information displayed on this report is compiled from pharmacy submissions to the Department, and accurately reflects the information as submitted by the pharmacies. This report was requested by: Junaid Martínez | Reference #: [id number] There are no results for the search terms that you entered."
--- NOTE | 2017-03-13 02:17 | DS ---
CC: Dr. Huerta; Dr. Gaitan; Dr. Khoury * DISCHARGE SUMMARY: DATE OF ADMISSION: 03/06/17 DATE OF DISCHARGE: 03/12/17 HISTORY: This 57-year-old man presented with a fever for the 4 days before admission, he said that he had low-grade fevers. 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 He also developed worse neck pain than usual for that period of time. He said it was quite intermittent. On the day of discharge, he still had intermittent, severe neck pain not any different than before. On the day of admission, his temperature was 104. He was scheduled for an outpatient iron infusion, which he showed up for; however, because of his fever , he instead of getting infusion, he was referred to the emergency room and promptly admitted. The patient had a CT scan of the cervical spine and MRI of the thoracic spine. There was no evidence of thoracic spine osteomyelitis or epidural abscess on the MRI of the thoracic spine. He had an MRI of the cervical spine as well, which again showed no evidence of epidural abscess, but did show degenerative spondylosis and facet joint osteoarthritis and mild acquired central canal stenosis at C6-7, C7- T1 with mild left foraminal stenosis at C3-C4 and C7-T1. Chest X-ray showed bilateral patchy infiltrates compatible with pneumonia. Two sets of blood cultures for a total of 4 bottles grew out Strep agalactiae group B. This had sensitivity to cefazolin and sensitive to penicillin. He was treated with intravenous cephalosporin. He will complete a total of 14 days of IV antibiotics with ceftriaxone 1 g q.24 hours as an outpatient. I am sending him home with 3 different medications to help his neck pain. He will try to find out which one or combination of medications helps control his pain best. Hopefully with time the pain will subside as well. FINAL DIAGNOSES: 1. Bilateral pneumonia with Group B Strep bacteremia. 2. Cervical arthritis. 3. Anemia and thrombocytopenia related to prior chemotherapy radiation and cirrhosis from hepatitis C. 4. Hypothyroidism. DISCHARGE MEDICATIONS: 1. Cyclobenzaprine 10 mg t.i.d. p.r.n. 2. Hydrocodone and acetaminophen 5/325 mg 1 every 4 hours p.r.n. 3. Tramadol 50 mg every 6 hours p.r.n. 4. Polyethylene glycol 17 g daily p.r.n. 5. Lactobacillus 1 capsule daily. 6. Iron polysaccharide complex 1 capsule daily. 7. Escitalopram 20 mg daily. 8. Levothyroxine 25 mcg daily. 9. Omeprazole 20 mg daily. [id number]/[facility] #: [id number] [facility]
== END 2017-03-12 16:53 | disposition home or self-care (01) | DRG 137 ==
LOC: ED 11:11 → MEDTELE 14:53 → OBSVTOIN 15:24
PROVIDERS: ADMIT Hospitalist; ATTEND Internal Medicine
PROC: B24BZZ4 Ultrasonography of Heart with Aorta, Transesophageal (ICD-10-PCS; principal; 2017-03-08 12:45)
DX: J15.211 Pneumonia due to Methicillin susceptible Staphylococcus aureus (principal); R78.81 Bacteremia; K76.6 Portal hypertension; D69.59 Other secondary thrombocytopenia; T66.XXXA Radiation sickness, unspecified, initial encounter; K74.60 Unspecified cirrhosis of liver; D64.81 Anemia due to antineoplastic chemotherapy; F41.9 Anxiety disorder, unspecified; F32.9 Major depressive disorder, single episode, unspecified; I10 Essential (primary) hypertension; E11.9 Type 2 diabetes mellitus without complications; B18.2 Chronic viral hepatitis C; E03.9 Hypothyroidism, unspecified; D50.9 Iron deficiency anemia, unspecified; M47.9 Spondylosis, unspecified; M48.02 Spinal stenosis, cervical region; M48.03 Spinal stenosis, cervicothoracic region; R13.10 Dysphagia, unspecified; B95.1 Streptococcus, group B, as the cause of diseases classified elsewhere; R16.1 Splenomegaly, not elsewhere classified; T45.1X5A Adverse effect of antineoplastic and immunosuppressive drugs, initial encounter; M54.2 Cervicalgia; Z82.49 Family history of ischemic heart disease and other diseases of the circulatory system; Z83.3 Family history of diabetes mellitus; Z87.891 Personal history of nicotine dependence; Z80.41 Family history of malignant neoplasm of ovary; Z80.0 Family history of malignant neoplasm of digestive organs; Z92.3 Personal history of irradiation; Z92.21 Personal history of antineoplastic chemotherapy; Z85.828 Personal history of other malignant neoplasm of skin
CPT/HCPCS: 36415; 71010; 72125; 72156; 72157; 80048; 80053; 80202; 81003; 81015; 82272; 83036; 83605; 83690; 85025; 85027; 85060; 85610; 85730; 86140; 87040; 87070; 87077; 87184; 87186; 87205; 87899; 93306; 93312; 93325; 94760; 99156; 99157; 99211; A9270-GY; A9579; G0463; J0456; J0690; J0696; J1170; J1756; J1885; J2250; J2270; J2310; J2405; J3010; J3370

== ENCOUNTER 2018-01-20 21:53 | Emergency (ER) | payer MEDICARE ==
--- NOTE | 2018-01-20 23:13 | ED ---
HPI Febrile Illness - HPI Summary HPI Summary: This is scribe Becky Hess documenting for attending physician Diamante Pino M.D. Pt is a 57 y/o male who presents to [facility] c/o fever since this morning. He states he woke up and felt sick, which was worsened after golfing in the sun for 4 hours. Pt reports a fever of 102.6 degrees F, nausea, dry heaves, chills, cough, sore throat, and ongoing neck pain due to radiation therapy. Did not take medications for his fever. Pt denies any diarrhea or flank pain. He also reports hes been having prostate issues for several months, which include difficulty urinating and increased urinary frequency. Pt states his physicians are currently trying to rule out prostate cancer, and reports a PSA of 18 and a negative urine culture. He denies any current cancer or chemotherapy. PMHx squamous cell carcinoma of head and neck, hepatitis C, thrombocytopenia, and iron deficiency anemia. - History of Current Complaint Chief Complaint: EDGeneral Time Seen by Provider: 01/20/18 22:56 Hx Obtained From: Patient Onset/Duration: Started Hours Ago - This morning, Still Present Timing: Constant Current Severity: Moderate Pain Intensity: 7 Pain Scale Used: 0-10 Numeric Aggravating Factors: Other: - Being in sun for 4 hours Alleviating Factors: Nothing Associated Signs and Symptoms: Chills, Cough, Nausea, Sore Throat, Stiff Neck - Neck pain, Vomiting - Dry heaves - Additional Pertinent History Primary Care Physician: HAYES - Allergy/Home Medications Allergies/Adverse Reactions: Allergies Allergy/AdvReac Type Severity Reaction Status Date / Time No Known Allergies Allergy Verified 01/20/18 21:58 PMH/Surg Hx/FS Hx/Imm Hx Endocrine/Hematology History: Reports: Hx Diabetes - DIET CONTROLLED, Hx Thyroid Disease, Hx 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 Cardiovascular History: Reports: Hx Hypertension Denies: Hx Congestive Heart Failure, Hx Pacemaker/ICD Respiratory History: Denies: Hx Asthma, Hx Chronic Obstructive Pulmonary Disease (COPD) GI History: Reports: Hx Cirrhosis, Hx Gastrointestinal Bleed, Other GI Disorders - Hepatitis C Denies: Hx Ulcer History: Reports: Hx Renal Disease Sensory History: Reports: Hx Contacts or Glasses Denies: Hx Cataracts, Hx Hearing Aid Opthamlomology History: Reports: Hx Contacts or Glasses Denies: Hx Cataracts Psychiatric History: Reports: Hx Anxiety, Hx Depression - attention deficit , Hx Bipolar Disorder Denies: Hx Panic Disorder - Cancer History Cancer Type, Location and Year: neck/throat ca- 2014. Squamous cell Hx Chemotherapy: Yes - LAST CHEMO 02/07 Hx Radiation Therapy: Yes - LAST RADIATION 02/11 Hx Palliative Cancer Treatment: No - Surgical History Surgery Procedure, Year, and Place: RIGHT HAND 03/2012, [facility]. 12/22/14- REMOVAL OF LYMPH NODE LEFT NECK- [facility] – [place]. bilateral hernia repair late . BILAT CARPAL TUNNEL. LEFT KNEE ARTHROSCOPE Hx Anesthesia Reactions: No Infectious Disease History: No Infectious Disease History: Reports: Hx Hepatitis Denies: Hx Clostridium Difficile, Hx Human Immunodeficiency Virus (HIV), Hx of Known/Suspected MRSA, Hx Shingles, Hx Tuberculosis, Hx Known/Suspected VRE, Hx Known/Suspected VRSA, History Other Infectious Disease, Traveled Outside the [place] in Last 30 Days - Family History Known Family History: Positive: Hypertension, Diabetes, Other - Ovarian and liver CA - Social History Alcohol Use: None Substance Use Type: Reports: None Hx Tobacco Use: No Smoking Status (MU): Former Smoker Type: Cigarettes Amount Used/How Often: 1/2 ppweek Length of Time of Smoking/Using Tobacco: 1 year Review of Systems Positive: Fever, Chills Positive: Sore Throat Positive: Cough Positive: Vomiting - Dry heaves, Nausea. Negative: Diarrhea Negative: flank pain Positive: Myalgia - Neck pain All Other Systems Reviewed And Are Negative: Yes Physical Exam - Summary Physical Exam Summary: VITAL SIGNS: Reviewed. GENERAL: Patient is a well-developed and nourished MALE who is lying comfortable in the stretcher. Patient is not in any acute respiratory distress. HEAD AND FACE: No signs of trauma. No ecchymosis, hematomas or skull depressions. No sinus tenderness. EYES: PERRLA, EOMI x 2, No injected conjunctiva, no nystagmus. EARS: Hearing grossly intact. Ear canals and tympanic membranes are within normal limits. MOUTH: Oropharynx within normal limits. NECK: Supple, trachea is midline, no adenopathy, no JVD, no carotid bruit, no c- spine tenderness, neck with full ROM. CHEST: Symmetric, no tenderness at palpation LUNGS: Clear to auscultation bilaterally. No wheezing or crackles. CVS: Regular rate and rhythm, S1 and S2 present, no murmurs or gallops appreciated. ABDOMEN: Soft, non-tender. No signs of distention. No rebound no guarding, and no masses palpated. Bowel sounds are normal. EXTREMITIES: FROM in all major joints, no edema, no cyanosis or clubbing. NEURO: Alert and oriented x 3. No acute neurological deficits. Speech is normal and follows commands. SKIN: Dry and warm RECTAL: Normal-sized prostate. No tenderness or masses. Triage Information Reviewed: Yes Vital Signs On Initial Exam: Initial Vitals Temp Pulse Resp BP Pulse Ox 100 F 88 16 163/72 96 01/20/18 21:54 01/20/18 21:54 01/20/18 21:54 01/20/18 21:54 01/20/18 21:54 Vital Signs Reviewed: Yes Diagnostics - Vital Signs Vital Signs Temp Pulse Resp BP Pulse Ox 01/20/18 21:54 100 F 88 16 163/72 96 - Laboratory Result Diagrams: 01/20/18 23:34 01/20/18 23:34 Lab Statement: Any lab studies that have been ordered have been reviewed, and results considered in the medical decision making process. - Radiology CXR Xray Interpretation: No Acute Changes - No acute findings. Pending official radiology report. 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 Bloodwork shows more or less the same values since 2017. CXR was negative. Urine was clean. Normal CRP. Course/Dx - Course Course Of Treatment: Pt is a 57 y/o male who presents to [facility] c/o fever since this morning, worsened after golfing in the sun for 4 hours. Pt reports a fever of 102.6 degrees F, nausea, dry heaves, chills, cough, sore throat, and ongoing neck pain due to radiation therapy. Pt denies any diarrhea or flank pain. He also reports hes been having prostate issues for several months, which include difficulty urinating and increased urinary frequency, and reports a PSA of 18 and a negative urine culture. He denies any current cancer or chemotherapy. PMHx squamous cell carcinoma of head and neck, hepatitis C, thrombocytopenia, and iron deficiency anemia. A rectal exam revealed Normal-sized prostate. No tenderness or masses. A CXR was negative. A re-eval at 1:30 revealed a history of pancytopenia for 3 years due to chemotherapy and radiation. Bloodwork shows more or less the same values since 2017. Urine was clean. Normal CRP. Final dx is viral syndrome, and pt will be discharged. Pt was instructed to Take Tylenol for fever, but not Motrin or Aspirin, because of thrombocytopenia. Pt is agreeable with this plan. - Diagnoses Provider Diagnoses: Viral syndrome Discharge - Sign-Out/Discharge Documenting (check all that apply): Patient Departure - Discharge - Discharge Plan Condition: Stable Disposition: HOME Patient Education Materials: Viral Syndrome (ED) Referrals: Chelsie Huerta MD [Primary Care Provider] - (1-2 days) Additional Instructions: Take Tylenol for fever. Do not take Motrin or Aspirin, because of your thrombocytopenia. Go to your urology appointment tomorrow as scheduled. RETURN TO THE EMERGENCY DEPARTMENT FOR CHANGING OR WORSENING SYMPTOMS
[2018-01-20] MEDS ORDERED: NS 0.9% 1000 ML*IV.FLUID IV ONE (23:14)
[2018-01-20] MEDS ORDERED: Levofloxacin 750 MG IVPREMIX(* 750 MG/150 ML BAG IVPB ONE (23:15)
[2018-01-20] MEDS ORDERED: Ibuprofen TAB* 800 MG PO ONE (23:15)
[2018-01-20 23:50] LABS: ABS Basophils 0 10^3/ul (0-0.2); ABS Eosinophils 0.1 10^3/ul (0-0.6); ABS Lymphocytes 0.3 10^3/ul (1.0-4.8); ABS Monocytes 0.3 10^3/ul (0-0.8); ABS Neutrophils 1.5 10^3/ul (1.5-7.7); ABS Nucleated RBC 0 10^3/ul; Eosinophil % 3.5 % (0-6); Hematocrit 33 % (42-52); Hemoglobin 11.9 g/dl (14.0-18.0); Lymphocyte % 12.9 % (25-47); Mean Corpuscular HGB Conc 36 g/dl (31-36); Mean Corpuscular Hemoglobin 31 pg (27-31); Mean Corpuscular Volume 86 fL (80-94); Mean Platelet Volume 6.6 um3 (7.4-10.4); Nucleated Red Blood Cells % 0.2; Platelet Count 22 10^3/ul (150-450); Red Blood Count 3.88 10^6/ul (4.00-5.40); Red Cell Distribution Width 16 % (10.5-15); White Blood Count 2.2 10^3/ul (3.5-10.8)
[2018-01-20 23:54] LABS: INR 1.35 (0.77-1.02)
[2018-01-21 00:04] LABS: EGFR Non-African American 89.8 (>60)
[2018-01-21 01:25] LABS: Urine Appearance Clear; Urine Blood 1+ (Negative); Urine Color Yellow; Urine Ketones Negative (Negative); Urine Protein Negative (Negative); Urine Red Blood Cell Trace(0-2/hpf) (Absent); Urine Specific Gravity 1.004 (1.010-1.030); Urine Urobilinogen Negative (Negative); Urine White Blood Cell Absent (Absent)
[2018-01-21 02:26] VITALS: BP 119/71
--- NOTE | 2018-01-21 08:11 | RAD ---
INDICATION: Fever COMPARISON: March 07, 2017 TECHNIQUE: An AP portable view obtained at 2344 hours is submitted. FINDINGS: Bones/Soft Tissues: There are no acute bony findings. Cardiomediastinal: The cardiomediastinal silhouette is normal. Lungs: There are no infiltrates. Pleura: There are no pleural effusions. Other: None IMPRESSION: NO ACTIVE DISEASE.
== END 2018-01-21 02:28 | disposition home or self-care (01) ==
LOC: ED 21:53
DX: B34.9 Viral infection, unspecified (principal); R97.20 Elevated prostate specific antigen [PSA]; Z85.819 Personal history of malignant neoplasm of unspecified site of lip, oral cavity, and pharynx; Z82.49 Family history of ischemic heart disease and other diseases of the circulatory system; Z83.3 Family history of diabetes mellitus; Z80.41 Family history of malignant neoplasm of ovary; Z80.0 Family history of malignant neoplasm of digestive organs; Z87.891 Personal history of nicotine dependence
CPT/HCPCS: 36415; 71045; 80053; 81003; 81015; 82550; 83605; 84153; 85025; 85610; 85730; 86140; 87040; 96365; 99283; A9270-GY

== ENCOUNTER 2018-02-18 12:36 | Emergency (ER) | payer MEDICARE ==
[2018-02-18 13:04] LABS: ABS Basophils 0 10^3/ul (0-0.2); ABS Eosinophils 0.2 10^3/ul (0-0.6); ABS Lymphocytes 0.4 10^3/ul (1.0-4.8); ABS Monocytes 0.2 10^3/ul (0-0.8); ABS Neutrophils 1.8 10^3/ul (1.5-7.7); ABS Nucleated RBC 0 10^3/ul; Eosinophil % 7.7 % (0-6); Hematocrit 38 % (42-52); Hemoglobin 13.3 g/dl (14.0-18.0); Lymphocyte % 14.7 % (25-47); Mean Corpuscular HGB Conc 35 g/dl (31-36); Mean Corpuscular Hemoglobin 30 pg (27-31); Mean Corpuscular Volume 86 fL (80-94); Mean Platelet Volume 6.8 um3 (7.4-10.4); Nucleated Red Blood Cells % 0.3; Platelet Count 35 10^3/ul (150-450); Red Blood Count 4.41 10^6/ul (4.00-5.40); Red Cell Distribution Width 16 % (10.5-15); White Blood Count 2.6 10^3/ul (3.5-10.8)
[2018-02-18 13:27] LABS: EGFR Non-African American 93.2 (>60)
--- NOTE | 2018-02-18 13:55 | ED ---
GI/ HPI - HPI Summary HPI Summary: This patient is a 58 year old M presenting to [facility] with a chief complaint of GIGU bleed s/p prostate biopsy at 1100. Pt endorses bleeding has slowed down. Pt had two BMs at Dr. Degroot office and there was a lot of blood and clotting. Recent BM in ED only had 1 clot. Pt endorses resolved chills and nausea, and per triage urethral and rectal bleeding. Pt received platelet transfusion this AM. - History of Current Complaint Chief Complaint: EDGIBleed Time Seen by Provider: 02/18/18 12:45 Stated Complaint: CHILLS/BLEEDING GENITIL Hx Obtained From: Patient Onset/Duration: Started Hours Ago Timing: Constant, Lasting Hours Severity: Moderate Current Severity: Mild Pain Intensity: 3 Location of Pain: None Associated Signs and Symptoms: Positive: Nausea, Bright Red Blood w/Stool, Blood w/Stool, Diarrhea, Hematuria, Chills. Negative: Fever Additional Signs & Symptoms: Positive: Penile Discharge - blood Aggravating Factor(s): Nothing Alleviating Factor(s): Nothing - Additional Pertinent History Primary Care Physician: HAYES - Allergy/Home Medications Allergies/Adverse Reactions: Allergies Allergy/AdvReac Type Severity Reaction Status Date / Time No Known Allergies Allergy Verified 02/18/18 12:43 PMH/Surg Hx/FS Hx/Imm Hx Endocrine/Hematology History: Reports: Hx Blood Transfusions - platelets, Hx Diabetes - DIET CONTROLLED, Hx Thyroid Disease, Hx 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 Cardiovascular History: Reports: Hx Hypertension Denies: Hx Congestive Heart Failure, Hx Pacemaker/ICD Respiratory History: Denies: Hx Asthma, Hx Chronic Obstructive Pulmonary Disease (COPD) GI History: Reports: Hx Cirrhosis, Hx Gastrointestinal Bleed, Other GI Disorders - Hepatitis C Denies: Hx Ulcer History: Reports: Hx Renal Disease Sensory History: Reports: Hx Contacts or Glasses Denies: Hx Cataracts, Hx Deafness, Hx Hearing Aid Opthamlomology History: Reports: Hx Contacts or Glasses Denies: Hx Cataracts EENT History: Denies: Hx Deafness Psychiatric History: Reports: Hx Anxiety, Hx Depression - attention deficit , Hx Bipolar Disorder Denies: Hx Panic Disorder - Cancer History Cancer Type, Location and Year: neck/throat ca- 2014. Squamous cell Hx Chemotherapy: Yes - LAST CHEMO 02/07 Hx Radiation Therapy: Yes - LAST RADIATION 8/14 Hx Palliative Cancer Treatment: No - Surgical History Surgery Procedure, Year, and Place: RIGHT HAND 03/2012, [facility]. 12/22/14- REMOVAL OF LYMPH NODE LEFT NECK- [facility] [place]. bilateral hernia repair late . BILAT CARPAL TUNNEL. LEFT KNEE ARTHROSCOPE Hx Anesthesia Reactions: No Infectious Disease History: No Infectious Disease History: Reports: Hx Hepatitis Denies: Hx Clostridium Difficile, Hx Human Immunodeficiency Virus (HIV), Hx of Known/Suspected MRSA, Hx Shingles, Hx Tuberculosis, Hx Known/Suspected VRE, Hx Known/Suspected VRSA, History Other Infectious Disease, Traveled Outside the [place] in Last 30 Days - Family History Known Family History: Positive: Hypertension, Diabetes, Other - Ovarian and liver CA - Social History Occupation: Disabled Lives: Alone Alcohol Use: None Substance Use Type: Reports: None Hx Tobacco Use: No Smoking Status (MU): Former Smoker Type: Cigarettes Amount Used/How Often: 1/2 ppweek Length of Time of Smoking/Using Tobacco: 1 year Review of Systems Positive: Chills. Negative: Fever Positive: Nausea, Other - hematochezia with clots Positive: hematuria All Other Systems Reviewed And Are Negative: Yes Physical Exam - Summary Physical Exam Summary: Appearance: The patient is well-nourished in no acute distress and in no acute pain. Skin: The skin is warm and dry and skin color reflects adequate perfusion. HEENT: The head is normocephalic and atraumatic. The pupils are equal and reactive. The conjunctivae are clear and without drainage. Nares are patent and without drainage. Mouth reveals moist mucous membranes and the throat is without erythema and exudate. The external ears are intact. The ear canals are patent and without drainage. The tympanic membranes are intact. Neck: The neck is supple with full range of motion and non-tender. There are no carotid bruits. There is no neck vein distension. Respiratory: Chest is non-tender. Lungs are clear to auscultation and breath sounds are symmetrical and equal. Cardiovascular: Heart is regular rate and rhythm. There is no murmur or rub auscultated. There is no peripheral edema and pulses are symmetrical and equal. Abdomen: The abdomen is soft and non-tender. There are normal bowel sounds heard in all four quadrants and there is no organomegaly palpated. Musculoskeletal: There is no back tenderness noted. Extremities are non-tender with full range of motion. There is good capillary refill. There is no peripheral edema or calf tenderness elicited. Neurological: Patient is alert and oriented to person, place and time. The patient has symmetrical motor strength in all four extremities. Cranial nerves are grossly intact. Deep tendon reflexes are symmetrical and equal in all four extremities. Psychiatric: The patient has an appropriate affect and does not exhibit any anxiety or depression Triage Information Reviewed: Yes Vital Signs On Initial Exam: Initial Vitals Temp Pulse Resp BP Pulse Ox 98.4 F 65 18 165/80 97 02/18/18 12:37 02/18/18 12:37 02/18/18 12:37 02/18/18 12:37 02/18/18 12:37 Vital Signs Reviewed: Yes Diagnostics - Vital Signs Vital Signs Temp Pulse Resp BP Pulse Ox 02/18/18 13:40 62 18 100 02/18/18 12:37 98.4 F 65 18 165/80 97 - Laboratory Lab Results: Lab Results 02/18/18 02/18/18 Range/Units 12:49 12:49 WBC 2.6 L (3.5-10.8) 10^3/ul RBC 4.41 (4.00-5.40) 10^6/ul Hgb 13.3 L (14.0-18.0) g/dl Hct 38 L (42-52) % MCV 86 (80-94) fL MCH 30 (27-31) pg MCHC 35 (31-36) g/dl RDW 16 H (10.5-15) % Plt Count 35 L D (150-450) 10^3/ul MPV 6.8 L (7.4-10.4) um3 Neut % (Auto) 67.5 (38-83) % Lymph % (Auto) 14.7 L (25-47) % [place] % (Auto) 9.4 H (0-7) % Eos % (Auto) 7.7 H (0-6) % Baso % (Auto) 0.7 (0-2) % Absolute Neuts (auto) 1.8 (1.5-7.7) 10^3/ul Absolute Lymphs (auto) 0.4 L (1.0-4.8) 10^3/ul Absolute Monos (auto) 0.2 (0-0.8) 10^3/ul Absolute Eos (auto) 0.2 (0-0.6) 10^3/ul Absolute Basos (auto) 0 (0-0.2) 10^3/ul Absolute Nucleated RBC 0 10^3/ul Nucleated RBC % 0.3 Sodium 132 L (135-145) mmol/L Potassium 4.1 (3.5-5.0) mmol/L Chloride 100 L (101-111) mmol/L Carbon Dioxide 27 (22-32) mmol/L Anion Gap 5 (2-11) mmol/L BUN 11 (6-24) mg/dL Creatinine 0.84 (0.67-1.17) mg/dL Est GFR ( Amer) 112.8 (>60) Est GFR (Non-Af Amer) 93.2 (>60) BUN/Creatinine Ratio 13.1 (8-20) Glucose 183 H (70-100) mg/dL Calcium 9.2 (8.6-10.3) mg/dL Total Bilirubin 2.50 H (0.2-1.0) mg/dL AST 45 H (13-39) U/L ALT 32 (7-52) U/L Alkaline Phosphatase 56 (34-104) U/L C-Reactive Protein 1.17 (<8.01) mg/L Total Protein 6.9 (6.4-8.9) g/dL Albumin 4.1 (3.2-5.2) g/dL Globulin 2.8 (2-4) g/dL Albumin/Globulin Ratio 1.5 (1-3) Result Diagrams: 02/18/18 12:49 02/18/18 12:49 Lab Statement: Any lab studies that have been ordered have been reviewed, and results considered in the medical decision making process. GIGU Course/Dx - Course Course Of Treatment: Mr. Rushing sent over to the emergency department from Dr. Srinivasan's office after prostate biopsy. He has chronic thrombocytopenia and was given platelets this morning. After the biopsy he was observed for a period of time and continued to have rectal bleeding. He then began to complain of nausea and chills and he was sent over here for further evaluation. By the time he arrived here his bleeding had slowed and he was beginning to feel better. We observed him for a period of time and checked his labs which were consistent with the past. I discussed it with Dr. Srinivasan and Dr. Blue who both evaluated the patient emergency department and we discharged him as after he remained stable for an observation period. - Diagnoses Provider Diagnoses: Post-op bleeding - Physician Notifications Discussed Care Of Patient With: Bam Srinivasan Time Discussed With Above Provider: 14:55 Instructed by Provider To: Other - Will see pt in ED. Discharge - Sign-Out/Discharge Documenting (check all that apply): Patient Departure - discharge - Discharge Plan Condition: Stable Disposition: HOME Patient Education Materials: Rectal Bleeding (ED) Referrals: Chelsie Huerta MD [Primary Care Provider] - 3 Days Additional Instructions: Please return to the emergency department for any new or worsening symptoms. - Billing Disposition and Condition Condition: STABLE Disposition: Home - Attestation Statements Document Initiated by Rika: Yes Documenting Scribe: Sundar Massey Provider For Whom Rika is Documenting (Include Credential): Dr. Dung Ga MD Scribe Attestation: Sundar Mabry scribed for Dr. Dung Ga MD on 02/18/18 at 1822. Scribe Documentation Reviewed: Yes Provider Attestation: The documentation as recorded by the Sundar nobles accurately reflects the service I personally performed and the decisions made by me, Dr. Dung Ga MD
[2018-02-18 15:59] VITALS: BP 116/76
== END 2018-02-18 15:57 | disposition home or self-care (01) ==
LOC: ED 12:36
DX: N99.820 Postprocedural hemorrhage of a genitourinary system organ or structure following a genitourinary system procedure (principal); Z87.891 Personal history of nicotine dependence
CPT/HCPCS: 36415; 80053; 85025; 86140; 99282

== ENCOUNTER 2018-03-05 12:15 | Emergency (ER) | payer MEDICARE ==
[2018-03-05] MEDS ORDERED: NS 0.9% 1000 ML* 2,000 ML IV ONE (13:31)
--- NOTE | 2018-03-05 13:59 | ED ---
Syncope/Near Syncope - HPI Summary HPI Summary: Pt is a 58 y/o male who presents to the ED s/p near-syncopal episode. He had a nuclear bone density test done today for his recent prostate CA diagnosis. After the test he sat up and felt dizzy and like the room was spinning. Pt is still dizzy. He states he wants to leave and to just follow up with his PCP. His glucose level was found to be 256. He also states he is a borderline diabetic due to his A1C levels. He denies any SOB or CP. Pt has only had clear liquids today. Home Medications Medication Instructions Recorded Confirmed Type Escitalopram (NF) [Lexapro 20 mg 20 mg PO DAILY 03/06/17 02/18/18 History (NF)] Iron Ps Complex/B12/Folic Acid 1 cap PO DAILY 03/06/17 02/18/18 History [Poly-Iron 150 Forte Capsule] Lactobacillus Acidophilus 1 cap PO DAILY 03/06/17 02/18/18 History [Probiotic] Levothyroxine TAB* [Synthroid 25 25 mcg PO DAILY 03/06/17 02/18/18 History MCG TAB*] Omeprazole CAP* [Prilosec CAP* 20 20 mg PO .DAILY-BID 03/06/17 02/18/18 History MG] - History Of Current Complaint Chief Complaint: EDDizziness Time Seen by Provider: 03/05/18 13:31 Hx Obtained From: Patient Onset/Duration: Sudden Onset, Still Present Activity At Onset: Other - Sat up after bone density scan Associated Head Trauma: No Aggravating Factor(s): Other - Only having clear liquids Alleviating Factor(s): Nothing Associated Signs And Symptoms: Dizzy - Allergies/Home Medications Allergies/Adverse Reactions: Allergies Allergy/AdvReac Type Severity Reaction Status Date / Time No Known Allergies Allergy Verified 03/05/18 12:27 PMH/Surg Hx/FS Hx/Imm Hx Endocrine/Hematology History: Reports: Hx Blood Transfusions - platelets, Hx Diabetes - DIET CONTROLLED, Hx Thyroid Disease, Hx 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 Cardiovascular History: Reports: Hx Hypertension Denies: Hx Congestive Heart Failure, Hx Pacemaker/ICD Respiratory History: Denies: Hx Asthma, Hx Chronic Obstructive Pulmonary Disease (COPD) GI History: Reports: Hx Cirrhosis, Hx Gastrointestinal Bleed, Other GI Disorders - Hepatitis C Denies: Hx Ulcer History: Reports: Hx Renal Disease Sensory History: Reports: Hx Contacts or Glasses Denies: Hx Cataracts, Hx Deafness, Hx Hearing Aid Opthamlomology History: Reports: Hx Contacts or Glasses Denies: Hx Cataracts Psychiatric History: Reports: Hx Anxiety, Hx Depression - attention deficit , Hx Bipolar Disorder Denies: Hx Panic Disorder - Cancer History Cancer Type, Location and Year: 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 Prostate 2018 Hx Chemotherapy: Yes - LAST CHEMO 02/07 Hx Radiation Therapy: Yes - LAST RADIATION 02/11 Hx Palliative Cancer Treatment: No - Surgical History Surgery Procedure, Year, and Place: RIGHT HAND 03/2012, [facility] – [place]. 12/22/14- REMOVAL OF LYMPH NODE LEFT NECK- [facility] – [place]. bilateral hernia repair late . BILAT CARPAL TUNNEL. LEFT KNEE ARTHROSCOPE Hx Anesthesia Reactions: No Infectious Disease History: No Infectious Disease History: Reports: Hx Hepatitis - C Denies: Hx Clostridium Difficile, Hx Human Immunodeficiency Virus (HIV), Hx of Known/Suspected MRSA, Hx Shingles, Hx Tuberculosis, Hx Known/Suspected VRE, Hx Known/Suspected VRSA, History Other Infectious Disease, Traveled Outside the [place] in Last 30 Days - Family History Known Family History: Positive: Hypertension, Diabetes, Other - Ovarian and liver CA - Social History Alcohol Use: None Hx Substance Use: No Substance Use Type: Reports: None Hx Tobacco Use: Yes Smoking Status (MU): Former Smoker Type: Cigarettes Amount Used/How Often: 1/2 ppweek Length of Time of Smoking/Using Tobacco: 1 year Review of Systems Negative: Chest Pain Negative: Shortness Of Breath Negative: Abdominal Pain, Vomiting, Nausea Positive: dysuria Neurological: Other - Dizziness, room spinning Positive: Syncope - Near All Other Systems Reviewed And Are Negative: Yes Physical Exam - Summary Physical Exam Summary: Appearance: Well-appearing, moderate pain distress, well-nourished Skin: Warm, color reflects adequate perfusion, dry Head: Normal Head/Face inspection, atraumatic Eyes: Conjunctiva clear ENT: Normal inspection Neck: Supple, no nodes, no JVD Respiratory: Lungs clear, normal breath sounds, no respiratory distress Cardio: RRR, No murmur, pulses normal, brisk capillary refill Abdomen: Soft, nontender Bowel sounds: Present Musculoskeletal: Strength Intact/ROM intact, no calf tenderness, no edema. Psychological: Normal Neuro: Alert, muscle tone normal, no focal deficit Triage Information Reviewed: Yes Vital Signs On Initial Exam: Initial Vitals Temp Pulse Resp BP Pulse Ox 99.5 F 66 16 123/64 96 03/05/18 12:22 03/05/18 12:22 03/05/18 12:22 03/05/18 12:22 03/05/18 12:22 Vital Signs Reviewed: Yes Diagnostics - Vital Signs Vital Signs Temp Pulse Resp BP Pulse Ox 03/05/18 13:23 98.4 F 63 16 142/75 94 03/05/18 12:22 99.5 F 66 16 123/64 96 - Laboratory Lab Results: Lab Results 03/05/18 Range/Units 13:36 POC Glucose (mg/dL) 232 H (70-100) mg/dL Result Diagrams: 03/05/18 14:37 03/05/18 14:37 Lab Statement: Any lab studies that have been ordered have been reviewed, and results considered in the medical decision making process. - Radiology CXR Xray Interpretation: No Acute Changes - NO ACTIVE CARDIOPULMONARY DISEASE. ED physician reviewed radiology report. Radiology Interpretation Completed By: Radiologist - EKG 13:31 Cardiac Rate: NL - 60 bpm EKG Rhythm: Sinus Rhythm ST Segment: Normal Ectopy: None EKG Interpretation: 1st degree AV block, nml IV CT, nml QTc, and nml axis. EKG Comparison: Other - 02/18/16 - T wave now inverted in III Re-Evaluation - Re-Evaluation First Eval Re-Evaluation Time: 14:30 Change: Unchanged Comment: Pt is resting on a stretcher in sub-waiting. He is glad he stayed. Repeat glucose is 230. Second Eval Re-Evaluation Time: 17:00 Change: Improved Comment: Pt feels a bit better. He states his blood results, including WBC and platelet counts, are always low due to his squamous cell CA in 2014. Pt received chemotherapy and radiation for this. A temporal temp by Dr. Shirley was 97.8 degrees F. He states he always has dysuria due to his prostate CA. Pt has appoints with Dr. Khoury, Dr. Srinivasan, and Dr. Olivas within the next week. Course/Dx Course Of Treatment: Pt is a 58 y/o male who presents to the ED s/p near- syncopal episode. An EKG revealed normal rate of 60 bpm, 1st degree AV block, nml IV CT, nml QTc, nml axis. As compared to 01/2016 T wave in III is now inverted. A CXR was negative. - Diagnoses Provider Diagnoses: Hyperglycemia, Near syncope Discharge - Sign-Out/Discharge Documenting (check all that apply): Patient Departure - Discharge - Discharge Plan Condition: Stable Disposition: HOME Patient Education Materials: Near Syncope (ED), Diabetic Hyperglycemia (ED) Referrals: Chelsie Huerta MD [Primary Care Provider] - 2 Days Additional Instructions: We evaluated due in the emergency department with labs EKG and chest x-ray after he had an episode getting your bone density scan of lightheadedness and feeling like he might pass out. Your blood glucose was 250 then 232 then U were hydrated with 2 L of normal saline and he felt much better. He should keep you appointment with Dr. Khoury on 03/07/18 and your appointment with Dr. Srinivasan next week. He should also follow up with Dr. Huerta in the next 7-10 days. Your hemoglobin A1c was 6.2 today which is in range for what it has been. He did have other lab abnormalities but these were also within range of what they have been. Return to the emergency department for new or worsening symptoms. - Attestation Statements Document Initiated by Scribe: Yes Documenting Scribe: Becky Hess Provider For Whom Scribe is Documenting (Include Credential): Melia Shirley MD Scribe Attestation: Becky Mabry, scribed for Melia Shirley MD on 03/05/18 at 1900.
--- NOTE | 2018-03-05 14:27 | RAD ---
HISTORY: near syncope, hyperglycemia COMPARISONS: January 20, 2018 VIEWS: 1: frontal portable view of the chest at 1:51 PM FINDINGS: LINES AND TUBES: None. CARDIOMEDIASTINAL SILHOUETTE: The cardiomediastinal silhouette is normal for portable technique. PLEURA: The costophrenic angles are sharp. No pleural abnormalities are noted. LUNG PARENCHYMA: The lungs are clear. ABDOMEN: The upper abdomen is clear. There is no subphrenic gas. BONES AND SOFT TISSUES: No bone or soft tissue abnormalities are noted. IMPRESSION: NO ACTIVE CARDIOPULMONARY DISEASE.
[2018-03-05 14:59] LABS: ABS Basophils 0 10^3/ul (0-0.2); ABS Eosinophils 0.1 10^3/ul (0-0.6); ABS Lymphocytes 0.4 10^3/ul (1.0-4.8); ABS Monocytes 0.2 10^3/ul (0-0.8); ABS Neutrophils 1.1 10^3/ul (1.5-7.7); ABS Nucleated RBC 0 10^3/ul; Eosinophil % 7.4 % (0-6); Hematocrit 37 % (42-52); Hemoglobin 12.9 g/dl (14.0-18.0); Lymphocyte % 22.3 % (25-47); Mean Corpuscular HGB Conc 35 g/dl (31-36); Mean Corpuscular Hemoglobin 30 pg (27-31); Mean Corpuscular Volume 86 fL (80-94); Mean Platelet Volume 6.7 um3 (7.4-10.4); Nucleated Red Blood Cells % 0.1; Platelet Count 24 10^3/ul (150-450); Red Blood Count 4.25 10^6/ul (4.00-5.40); Red Cell Distribution Width 17 % (10.5-15); White Blood Count 1.8 10^3/ul (3.5-10.8)
[2018-03-05 15:03] LABS: INR 1.21 (0.77-1.02)
[2018-03-05 15:16] LABS: EGFR Non-African American 101.5 (>60)
[2018-03-05 18:26] LABS: Urine Appearance Clear; Urine Blood Negative (Negative); Urine Color Yellow; Urine Ketones Negative (Negative); Urine Protein Negative (Negative); Urine Specific Gravity 1.004 (1.010-1.030); Urine Urobilinogen Negative (Negative)
[2018-03-05 19:32] VITALS: BP 154/74
== END 2018-03-05 19:30 | disposition home or self-care (01) ==
LOC: ED 12:15
DX: R73.9 Hyperglycemia, unspecified (principal); R55 Syncope and collapse; R42 Dizziness and giddiness; Z87.891 Personal history of nicotine dependence; R30.0 Dysuria
CPT/HCPCS: 36415; 71045; 80053; 80307; 80320; 81003; 82140; 82550; 83036; 83605; 83735; 83880; 84443; 84484; 85025; 85379; 85610; 85730; 93005; 99284; G0480

== ENCOUNTER 2019-05-13 18:04 | Inpatient (IN) | payer MEDICARE ==
[2019-05-13] MEDS ORDERED: Pantoprazole IV* 40 MG IV ONE (20:00)
[2019-05-13] MEDS ORDERED: NS 0.9% 1000 ML** 1,000 ML IV ONE (20:00)
--- NOTE | 2019-05-13 20:55 | ED ---
GI/ HPI - HPI Summary HPI Summary: Patient is a 59 y/o M presenting to [facility] with chief complaint of rectal bleeding. PMHx of anemia, cirrhosis, hep C, GI bleed, thyroid disease, neck/ throat and prostate CA is noted. He states that this bleeding has been present for the past 3-4 months. Patient notes that he has approximately six episodes of bleeding and blood clot production per rectum on a daily basis. Blood is bright-red. Patient has a sample in a bag with him. Sample is bright red blood and soaked with clots. Chest pain, SOB, fever, and vomiting are denied. However , he does report dizziness, light-headedness, nausea, and fatigue. Patient also notes abdominal "soreness" but does not characterize this as pain. Patient notes that his stool is fully formed with bowel movements. He states that he is being followed by GI and general surgery. Patient is scheduled for colonoscopy June 15, 2019. Patient presents to ED today, 05/13/19, requesting a more prompt colonoscopy. Patient has Hx of low platelet count with most recent check being 3-4 weeks ago. He states that his platelet count at the time was 23, hemoglobin was 10. He states that he is followed by Dr. Flores GI, in [facility]. He notes previous platelet and iron transfusions as well. Patient reports that it is planned that he will receive a platelet transfusion the day of his colonoscopy and then his GI doctor will perform the colonoscopy. If anything is noted during the scope, patient will receive another platelet transfusion and procedure will be done. On filler blender, nothing is noted to aggravate/alleviate Sx. Home medications and allergies are reviewed. Vitals in room are pulse 81, o2 sat 99 on RA, BP 138/60. - History of Current Complaint Chief Complaint: EDGIBleed Time Seen by Provider: 05/13/19 19:59 Stated Complaint: RECTAL BLEEDING PER PT Hx Obtained From: Patient Onset/Duration: Started Weeks Ago Timing: Lasting Weeks Current Severity: None - patient reports abdominal soreness but denies pain Pain Intensity: 0 Associated Signs and Symptoms: Positive: Dizziness - light-headedness, Nausea, Other: - negative - SOB; positive - fatigue, rectal bleed. Negative: Vomiting, Fever, Chest Pain Aggravating Factor(s): Nothing Alleviating Factor(s): Nothing - Additional Pertinent History Primary Care Physician: [id number] - Allergy/Home Medications Allergies/Adverse Reactions: Allergies Allergy/AdvReac Type Severity Reaction Status Date / Time No Known Allergies Allergy Verified 05/13/19 18:13 PMH/Surg Hx/FS Hx/Imm Hx Endocrine/Hematology History: Reports: Hx Blood Transfusions - platelets, Hx Thyroid Disease, Hx 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 Denies: Hx Diabetes Cardiovascular History: Denies: Hx Congestive Heart Failure, Hx Hypertension, Hx Pacemaker/ICD Respiratory History: Denies: Hx Asthma, Hx Chronic Obstructive Pulmonary Disease (COPD) GI History: Reports: Hx Cirrhosis, Hx Gastrointestinal Bleed, Other GI Disorders - Hepatitis C Denies: Hx Ulcer History: Denies: Hx Renal Disease Sensory History: Reports: Hx Contacts or Glasses Denies: Hx Cataracts, Hx Deafness, Hx Hearing Aid Opthamlomology History: Reports: Hx Contacts or Glasses Denies: Hx Cataracts Psychiatric History: Reports: Hx Anxiety, Hx Depression - attention deficit , Hx Bipolar Disorder Denies: Hx Panic Disorder - Cancer History Cancer Type, Location and Year: 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 Prostate 2018 Hx Chemotherapy: Yes Hx Radiation Therapy: Yes Hx Palliative Cancer Treatment: No - Surgical History Surgery Procedure, Year, and Place: RIGHT HAND 03/2012, [facility] – [place]. 12/22/14- REMOVAL OF LYMPH NODE LEFT NECK- [facility] [place]. bilateral hernia repair late . BILAT CARPAL TUNNEL. LEFT KNEE ARTHROSCOPE Hx Anesthesia Reactions: No Infectious Disease History: No Infectious Disease History: Reports: Hx Hepatitis - C Denies: Hx Clostridium Difficile, Hx Human Immunodeficiency Virus (HIV), Hx of Known/Suspected MRSA, Hx Shingles, Hx Tuberculosis, Hx Known/Suspected VRE, Hx Known/Suspected VRSA, History Other Infectious Disease, Traveled Outside the [place] in Last 30 Days - Family History Known Family History: Positive: Hypertension, Diabetes, Other - Ovarian and liver CA - Social History Alcohol Use: None Hx Substance Use: No Substance Use Type: Reports: None Hx Tobacco Use: Yes Smoking Status (MU): Former Smoker Type: Cigarettes Amount Used/How Often: 1/2 ppweek Length of Time of Smoking/Using Tobacco: 1 year Review of Systems Positive: Fatigue Negative: Chest Pain Negative: Shortness Of Breath Positive: Abdominal Pain - "soreness" , Nausea. Negative: Vomiting Genitourinary: Other - positive - rectal bleeding Neurological: Other - positive - dizziness, light-headedness All Other Systems Reviewed And Are Negative: Yes Physical Exam - Summary Physical Exam Summary: General: Well-developed, Well-nourished male. No acute distress. Poor dentition. HEENT: Normocephalic, Atraumatic. Eyes: Conjuctiva normal, PERRL. Ears: TMs within normal limits. Nares: (-) discharge, (-) erythema. Oropharynx: Clear, mucous membranes moist, (-) exudates. Neck: Soft, FROM, (-) lymphadenopathy, (-) thyromegaly, (-) JVD. Cardiovascular: Normal sinus rhythm, (+) 3/6 systolic murmur. Lungs: Clear to auscultation bilaterally (-) wheezes, (-) rales, (-) rhonchi. Abdomen: Protruded abdomen that is soft with no significant tenderness (-) organomegaly, normal bowel sounds. Rectal: Normal sphincter tone, heme negative, there is no stool in rectal vault. Back: (-) CVA tenderness Extremities: No edema. Skin: Warm, dry, (-) rash. Neuro: Alert and oriented x3, no focal deficits. Psychiatric: Mood normal, affect normal. Triage Information Reviewed: Yes Vital Signs On Initial Exam: Initial Vitals Temp Pulse Resp BP Pulse Ox 98.3 F 84 19 150/69 99 05/13/19 18:08 05/13/19 18:08 05/13/19 18:08 05/13/19 18:08 05/13/19 18:08 Vital Signs Reviewed: Yes Procedures - Sedation Patient Received Moderate/Deep Sedation with Procedure: No Diagnostics - Vital Signs Vital Signs Temp Pulse Resp BP Pulse Ox 05/13/19 18:08 98.3 F 84 19 150/69 99 - Laboratory Result Diagrams: 05/13/19 20:53 05/13/19 20:53 Lab Statement: Any lab studies that have been ordered have been reviewed, and results considered in the medical decision making process. Re-Evaluation - Re-Evaluation First Eval Re-Evaluation Time: 21:12 Comment: Aware of platelets of 17 at this time. Second Eval Re-Evaluation Time: 02:45 Comment: Platelets infusing at this time. Blood transfusion pending. Third Eval Re-Evaluation Time: 05:05 Comment: 1st bag of platelets completed, to start 2nd bag and subsequently admitted. GIGU Course/Dx - Course Course Of Treatment: 59-year-old male presents with chronic lower GI bleeding for the last 2-3 months. Patient brings in his troponins demonstrating the blood and clots that he is expressing 4-5 times daily. During ED course, patient received fluids, protonix 40 mg IV. platelet transfusion ordered. Patient referred to hospitalist for admission. - Diagnoses Provider Diagnoses: Lower GI bleed, Anemia, Thrombocytopenia, Leukocytopenia - Physician Notifications Discussed Care Of Patient With: Sangeeta Reyes Time Discussed With Above Provider: 22:17 Instructed by Provider To: Other - Patient's case was discussed with Dr. Reyes , Dr. Reyes will come to ED to evaluate the patient. 223 - Dr. Reyes wants to hold off on RBC transfusion and admission until platelets arrive and are transfused. Discharge ED - Sign-Out/Discharge Documenting (check all that apply): Patient Departure - ADMIT All imaging exams completed and their final reports reviewed: No - Discharge Plan Condition: Fair Disposition: ADMITTED TO [facility] - Billing Disposition and Condition Condition: FAIR Disposition: Admitted to [facility] - Attestation Statements Document Initiated by Rika: Yes Documenting Scribe: GRACIELA ECHEVARRIA Provider For Whom Rika is Documenting (Include Credential): ELAINA ELIZABETH MD Scribe Attestation: GRACIELA Mabry, scribed for ELAINA ELIZABETH MD on 05/14/19 at 0632. Scribe Documentation Reviewed: Yes Provider Attestation: The documentation as recorded by the GRACIELA nobles accurately reflects the service I personally performed and the decisions made by me, ELAINA ELIZABETH MD Status of Scribe Document: Viewed
[2019-05-13 21:12] LABS: ABS Eosinophils 0.2 10^3/ul (0-0.6); ABS Lymphocytes 0.3 10^3/ul (1.0-4.8); ABS Monocytes 0.1 10^3/ul (0-0.8); ABS Neutrophils 0.7 10^3/ul (1.5-7.7); Eosinophil % 13.1 %; Hematocrit 23 % (42-52); Hemoglobin 8.2 g/dL (14.0-18.0); Lymphocyte % 22.8 %; Mean Corpuscular HGB Conc 36 g/dL (31-36); Mean Corpuscular Hemoglobin 35 pg (27-31); Mean Corpuscular Volume 95 fL (80-94); Mean Platelet Volume 6.6 fL (7.4-10.4); Nucleated Red Blood Cells % 0.1; Platelet Count 17 10^3/uL (150-450); Red Blood Count 2.38 10^6 /uL (4.18-5.48); Red Cell Distribution Width 15 % (10-15); White Blood Count 1.2 10^3/uL (3.5-10.8)
[2019-05-13 21:17] LABS: Albumin 3.1 g/dL (3.2-5.2); Albumin/Globulin Ratio 1.5 (1-3); BUN/Creatinine Ratio 14.9 (8-20); Calcium 8.6 mg/dL (8.6-10.3); EGFR African American 130.1 (>60); EGFR Non-African American 107.5 (>60); Globulin 2.1 g/dL (2-4); Potassium 3.9 mmol/L (3.5-5.0); Total Bilirubin 1.3 mg/dL (0.2-1.0); Total Protein 5.2 g/dL (6.4-8.9)
[2019-05-13 21:21] LABS: Activated Partial Thrombo Time 40.8 seconds (26.0-38.0); INR 1.6 (0.82-1.09)
[2019-05-14] MEDS ORDERED: traZODone TAB* 50 MG TAB PO PRN (03:54)
[2019-05-14] MEDS ORDERED: Levothyroxine TAB* 25 MCG TAB PO SCH (06:00)
[2019-05-14] MEDS ORDERED: Pantoprazole IV* 40 MG IV ONE (06:53)
--- NOTE | 2019-05-14 07:08 | HP ---
History of Present Illness - History of Present Illness Reason for Visit: GIB History of Present Illness: 59 yo male with hx of cirrhosis sec to hepatitis C, splenomegaly, thrombocytopenia requiring multiple transfusions in the past, prostate CA, hx of head and neck Ca came in with insiduous lower GIB that is being followed outpatient. He is scheduled to have a colonoscopy in may, but patient said he has been passing clots frequently and feels very frustrated that his case is being dragged on. His H/H dropped from 10 to 8 in a month. His platelets usually range around 20-30s, today it is 17. He has been having some mucosal bleeding. He does not have any dizziness. His vitals have been stable. - Past Medical History Cardiac: HTN, Hyperlipidemia Heme/Onc: Anemia NOS, Cancer, Iron deficiency anemia - Past Family History Family History: Hyperlipidemia, Hypertension Review of Systems - Measurements Intake and Output: Intake and Output Last 24 Hours 05/12/19 05/13/19 05/14/19 05/15/19 06:59 06:59 06:59 06:59 Intake Total 1000 Output Total 0 Balance 1000 Weight 190 lb Intake: IV Fluids 1000 Oral 0 Output: Urine 0 - Review of Systems Constitutional Symptoms: Negative: Weight Gain, Weight Loss, Weakness, Fatigue, Fever, Night Sweats, Unexplained Falls, Other Dermatology: Positive: Skin Lesions HEENT: Positive: Other - mucosal bleeding Thyroid: Negative: Normal, Goiter, Thyroid Nodule, Cold Intolerance, Heat Intolerance , Sweatiness, Tremor, Frequent Defecation, Constipation, Palpitations, Primary Hypothyroidism, Primary Hyperthyroidism, Weight Loss, Weight Gain, Change in Skin/Hair, Change in Menstruation, Radiation Exposure, Other Pulmonary: Negative: Normal, Cough, Sputum, Hemoptysis, Wheezing, Respiratory Distress, Shortness of Breath, COPD, Asthma, Exercise Intolerance, Home Oxygen, Other Cardiology: Negative: Normal, Chest Pain, Shortness of Breath, Palpitations, Swelling of Ankles, Peripheral Vascular Dis, Edema, Faintness, Syncope, Claudication, Proximal NocturnalDyspnea, Orthopnoea, Other Gastroenterology: Positive: Blood in Stools, Melena Musculoskeletal: Negative: Joint Pain, Joint Stiffness, Arthritis, Osteoporosis, Low Back Pain , Sciatica, Joint Deformities, Kyphoscoliosis, Other Endocrinology: Negative: Normal, Thyroid Problems, Adrenal Problems, Gonadal Problems, Family Hx Endocrine Disorders, Obesity, Diabetes Mellitus, Hyperglycemia, Hx Hypoglycemia, Diabetic Foot Ulcers, Calluses, Hirsutism, Menstrual Abnormalities , Polydipsia, Polyuria, Gonadal Problems, Gynecomastia, Pituitary disease, Other Hematologic/Lymphatic: Positive: Anemia, Easy Bruising Neurology: Negative: Normal, Headache, Migraines, Change in Vision, Diplopia, Dizziness , Change in Balancing, Change in Coordination, Change in Memory, Change in Speech, Change in Sphincter Function, Change in Walking, Numbness\Paresthesiae, Unexplained Weakness, Hx of Stroke\TIA, Hx of Seizures, Other Psychiatry: Negative: Normal, Depression, Anxiety, Depressed Mood, Anhedonia, Sexual Dysfunction, Weight Change, Guilt Feelings, Tearfulness, Unusual Fatigue, Unusual Anxiety, Suicidal Ideation, Hypomania, Eating Disorders, Other Objective Active Medications: Levothyroxine Sodium (Synthroid Tab*) 25 mcg PO DAILY@0600 JOCELIN Pantoprazole Sodium (Protonix Iv*) 80 mg IV ONCE ONE Stop: 05/14/19 06:54 Trazodone HCl (Desyrel Tab*) 50 mg PO BEDTIME PRN PRN Reason: INSOMNIA Vital Signs - 8 hr 05/13/19 05/13/19 05/13/19 23:23 23:46 23:53 Temperature Pulse Rate 71 73 70 Respiratory 18 18 19 Rate Blood Pressure 115/62 115/62 116/64 (mmHg) O2 Sat by Pulse 96 95 95 Oximetry 05/14/19 05/14/19 05/14/19 00:00 00:24 00:37 Temperature Pulse Rate 77 66 63 Respiratory 20 20 16 Rate Blood Pressure 101/40 (mmHg) O2 Sat by Pulse 96 97 97 Oximetry 05/14/19 05/14/19 05/14/19 00:54 01:00 01:53 Temperature Pulse Rate 70 64 75 Respiratory 18 16 13 Rate Blood Pressure 129/78 121/76 (mmHg) O2 Sat by Pulse 98 96 96 Oximetry 05/14/19 05/14/19 05/14/19 02:00 02:23 02:28 Temperature Pulse Rate 73 78 64 Respiratory 15 19 20 Rate Blood Pressure 106/63 111/55 (mmHg) O2 Sat by Pulse 96 98 96 Oximetry 05/14/19 05/14/19 05/14/19 02:46 02:53 03:00 Temperature Pulse Rate 69 67 75 Respiratory 15 21 15 Rate Blood Pressure 109/64 105/62 (mmHg) O2 Sat by Pulse 97 95 94 Oximetry 05/14/19 05/14/19 05/14/19 03:24 04:00 04:04 Temperature Pulse Rate 66 64 73 Respiratory 17 20 14 Rate Blood Pressure 106/38 132/76 (mmHg) O2 Sat by Pulse 98 96 96 Oximetry 05/14/19 05/14/19 05/14/19 04:23 06:07 06:10 Temperature 0 F 97 F Pulse Rate 62 0 68 Respiratory 19 0 16 Rate Blood Pressure 115/60 0/0 139/68 (mmHg) O2 Sat by Pulse 97 0 98 Oximetry Oxygen Devices in Use Now: None Appearance: nontoxic appearing but looks a bit anxious. He as a very concerned look on his face Eyes: No Scleral Icterus, PERRLA Ears/Nose/Mouth/Throat: - - gingival bleeding, mucosal bleeding. Respiratory: Symmetrical Chest Expansion and Respiratory Effort, Clear to Auscultation, Clear to Percussion Cardiovascular: NL Sounds; No Murmurs; No JVD Abdominal: NL Sounds; No Tenderness; No Distention Lymphatic: No Cervical Adenopathy Extremities: No Edema Neurological: Alert and Oriented x 3, NL Muscle Strength and Tone Result Diagrams: 05/13/19 20:53 05/13/19 20:53 Assess/Plan/Problems-Billing Assessment: - Patient Problems (1) Lower GI bleed Current Visit: Yes Status: Acute Code(s): K92.2 - GASTROINTESTINAL HEMORRHAGE, UNSPECIFIED SNOMED Code(s): 84503081 Comment: insiduous bleed, pt has been passing clots a few times a week. He is awaiting colonoscopy scheduled in may. Feels very frustrated and would like to have colonoscopy done sooner. Team to consult GI NPO (2) DVT prophylaxis Current Visit: No Status: Acute Code(s): UGZ7974 - SNOMED Code(s): 430794034 Comment: SCDs alone given thrombocytopenia (3) Full code status Current Visit: No Status: Acute Code(s): Z78.9 - OTHER SPECIFIED HEALTH STATUS SNOMED Code(s): 387150930 (4) Hyperammonemia Current Visit: No Status: Acute Priority: High Code(s): E72.20 - DISORDER OF UREA CYCLE METABOLISM, UNSPECIFIED SNOMED Code(s): 1967105 Comment: with his severe thrombocytopenia, probably has some upper GIB contributing to the hyperammonemia Mentating well, no asterixis. lactulose (5) Iron deficiency anemia Current Visit: No Status: Acute Code(s): D50.9 - IRON DEFICIENCY ANEMIA, UNSPECIFIED SNOMED Code(s): 90725912 Comment: H/H dropped from 10 to 8 in 1 month. No need to transfuse now (6) Thrombocytopenia Current Visit: No Status: Acute Code(s): D69.6 - THROMBOCYTOPENIA, UNSPECIFIED SNOMED Code(s): 609763020 Comment: chronic issue. multiple transfusions of platelets in the past Transfused in the ED in the setting of active bleeding. (7) Hepatic cirrhosis due to chronic hepatitis C infection Current Visit: No Status: Chronic Code(s): B18.2 - CHRONIC VIRAL HEPATITIS C ; K74.60 - UNSPECIFIED CIRRHOSIS OF LIVER SNOMED Code(s): 366650942848 Comment: hx of cirrhosis from hep C ammonia elevated, not encephalopathic but will give him lactulose. hx of ?varices, here with a bleed. Will give a IV protonix, keep NPO Coagulopathy Severe thrombocytopenia, transfuse (8) Hypothyroidism Current Visit: Yes Status: Acute Code(s): E03.9 - HYPOTHYROIDISM, UNSPECIFIED SNOMED Code(s): 35290073 Comment: synthroid
[2019-05-14 09:31] LABS: INR 1.52 (0.82-1.09)
[2019-05-14 09:39] LABS: Mean Platelet Volume 6.8 fL (7.4-10.4); Platelet Count 23 10^3/uL (150-450)
[2019-05-14 09:42] LABS: BUN/Creatinine Ratio 12.7 (8-20); Calcium 8.5 mg/dL (8.6-10.3); EGFR African American 136.5 (>60); EGFR Non-African American 112.8 (>60); Magnesium 1.6 mg/dL (1.9-2.7)
[2019-05-14] MEDS: Lactulose* 15 ML UDC PO SCH ×3 (10:00→20:20)
[2019-05-14 10:02] LABS: ABS Eosinophils 0.2 10^3/ul (0-0.6); ABS Lymphocytes 0.2 10^3/ul (1.0-4.8); ABS Monocytes 0.1 10^3/ul (0-0.8); ABS Neutrophils 0.8 10^3/ul (1.5-7.7); Eosinophil % 11.4 %; Hematocrit 25 % (42-52); Hemoglobin 8.9 g/dL (14.0-18.0); Lymphocyte % 16.2 %; Mean Corpuscular HGB Conc 36 g/dL (31-36); Mean Corpuscular Hemoglobin 34 pg (27-31); Mean Corpuscular Volume 95 fL (80-94); Mean Platelet Volume 6.6 fL (7.4-10.4); Nucleated Red Blood Cells % 0.1; Platelet Count 23 10^3/uL (150-450); Red Cell Distribution Width 15 % (10-15); White Blood Count 1.3 10^3/uL (3.5-10.8)
[2019-05-14] MEDS ORDERED: Octreotide Acetate* 50 MCG in NS 0.9% 50 ML* 50 ML IV ONE (10:54)
[2019-05-14] MEDS ORDERED: NS 0.9% IV SCH (11:00)
[2019-05-14] MEDS ORDERED: OCTREOTIDE ACETATE IV SCH (11:00)
[2019-05-14] MEDS ORDERED: Magnesium Sulfate 2 GM IV* 2 GM/50 ML BAG IVPB ONE (12:32)
[2019-05-14] MEDS: Octreotide Acetate* 500 MCG in NS 0.9% 100 ML* 100 ML IV SCH ×2 (13:06→20:45)
--- NOTE | 2019-05-14 13:12 | PN ---
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 Mr. Rushing has been experiencing rectal bleeding for several months with concern for rectal varices and work-up by GI. He presented to the ER with persist bleeding, passing of clots, and increased fatigue with hmg down to 8.2. Concern voiced by GI that any intervention carried risk of bleeding and a transfer to higher level of care should be considered, therefore oncology consult for recommendations in relation to his history and cytopenia management. Mr. Rushing tells me he is fatigued but has been feeling OK overall. Abd. is tender, but no severe pains. Frustrated with his medical problems and "how long it takes to get anything done" but thankful for current admission and very agreeable with recommendations by GI. Tells me he passed a small clot this AM, but less than yesterday. Medications: Octreotide Acetate 500 mcg/ (Sodium Chloride) 101 mls @ 10.1 mls/hr IV Q10H JOCELIN ; Protocol Piperacillin Sod/Tazobactam (Sod 3.375 gm/ Sodium Chloride) 100 mls @ 200 mls/ hr IVPB Q6H JOCELIN Stop: 05/19/19 11:59 Magnesium Sulfate (Magnesium Sulfate 2 Gm Iv*) 2 gm in 50 mls @ 50 mls/hr IVPB ONCE ONE Stop: 05/14/19 13:31 Lactulose (Lactulose*) 15 ml PO TID [facility] Last Admin: 05/14/19 10:00 Dose: 15 ml Levothyroxine Sodium (Synthroid Tab*) 25 mcg PO DAILY@0600 [facility] Last Admin: 05/14/19 10:00 Dose: 25 mcg Trazodone HCl (Desyrel Tab*) 50 mg PO BEDTIME PRN PRN Reason: INSOMNIA Objective: [] Vital Signs Temp Pulse Resp BP Pulse Ox 97 F 68 16 139/68 98 05/14/19 06:10 05/14/19 06:10 05/14/19 06:10 05/14/19 06:10 05/14/19 06:10 A&Ox3, EOMI, neuro grossly non-focal HRR, S1S2 LS clear bilat. +BS, abd. soft and round, mildly tender specifically to bilat. lower quads +PP=bilat., no edema noted Laboratory Results - last 24 hr 05/13/19 05/13/19 05/13/19 20:53 20:53 20:53 WBC 1.2 L RBC 2.38 L Hgb 8.2 L Hct 23 L MCV 95 H MCH 35 H MCHC 36 RDW 15 Plt Count 17 L* MPV 6.6 L Neut % (Auto) 54.5 Lymph % (Auto) 22.8 [place] % (Auto) 8.7 Eos % (Auto) 13.1 Baso % (Auto) 0.9 Absolute Neuts (auto) 0.7 L* Absolute Lymphs (auto) 0.3 L Absolute Monos (auto) 0.1 Absolute Eos (auto) 0.2 Absolute Basos (auto) 0.0 Absolute Nucleated RBC 0.0 Nucleated RBC % 0.1 INR (Anticoag Therapy) 1.60 H APTT 40.8 H Sodium 138 Potassium 3.9 Chloride 108 Carbon Dioxide 25 Anion Gap 5 BUN 11 Creatinine 0.74 Est GFR ( Amer) 130.1 Est GFR (Non-Af Amer) 107.5 BUN/Creatinine Ratio 14.9 Glucose 148 H Calcium 8.6 Magnesium Total Bilirubin 1.30 H AST 37 ALT 27 Alkaline Phosphatase 54 Ammonia Total Protein 5.2 L Albumin 3.1 L Globulin 2.1 Albumin/Globulin Ratio 1.5 Blood Type Antibody Screen Crossmatch 05/13/19 05/13/19 05/14/19 20:53 20:54 09:12 WBC RBC Hgb Hct MCV MCH MCHC RDW Plt Count 23 L MPV 6.8 L Neut % (Auto) Lymph % (Auto) [place] % (Auto) Eos % (Auto) Baso % (Auto) Absolute Neuts (auto) Absolute Lymphs (auto) Absolute Monos (auto) Absolute Eos (auto) Absolute Basos (auto) Absolute Nucleated RBC Nucleated RBC % INR (Anticoag Therapy) APTT Sodium Potassium Chloride Carbon Dioxide Anion Gap BUN Creatinine Est GFR ( Amer) Est GFR (Non-Af Amer) BUN/Creatinine Ratio Glucose Calcium Magnesium Total Bilirubin AST ALT Alkaline Phosphatase Ammonia 115 H Total Protein Albumin Globulin Albumin/Globulin Ratio Blood Type AB Positive Antibody Screen Negative Crossmatch See Detail 05/14/19 05/14/19 05/14/19 09:12 09:12 09:12 WBC 1.3 L RBC 2.60 L Hgb 8.9 L Hct 25 L MCV 95 H MCH 34 H MCHC 36 RDW 15 Plt Count 23 L MPV 6.6 L Neut % (Auto) 63.1 Lymph % (Auto) 16.2 [place] % (Auto) 8.7 Eos % (Auto) 11.4 Baso % (Auto) 0.6 Absolute Neuts (auto) 0.8 L* Absolute Lymphs (auto) 0.2 L Absolute Monos (auto) 0.1 Absolute Eos (auto) 0.2 Absolute Basos (auto) 0.0 Absolute Nucleated RBC 0.0 Nucleated RBC % 0.1 INR (Anticoag Therapy) 1.52 H APTT Sodium 139 Potassium 4.0 Chloride 109 Carbon Dioxide 27 Anion Gap 3 BUN 9 Creatinine 0.71 Est GFR ( Amer) 136.5 Est GFR (Non-Af Amer) 112.8 BUN/Creatinine Ratio 12.7 Glucose 142 H Calcium 8.5 L Magnesium 1.6 L Total Bilirubin AST ALT Alkaline Phosphatase Ammonia Total Protein Albumin Globulin Albumin/Globulin Ratio Blood Type Antibody Screen Crossmatch Assessment: []This is a complicated 59 yo old male with significant past medical history including head and neck as well as prostate cancer as well as Hep C with subsequent cirrhosis causing pancytopenia and now recurrent gastrointestinal bleeding. Mr. Rushing has not been extremely responsive to platelet transfusions in the past and therefore should he require an intervention with potential bleeding it would be most appropriate to pursue this in a tertiary center with mulit-disciplinary approach and the immediate availability of platelets on site (whereas locally plt. can take 2-4 hours prior to arrival). Plan: []Agree with transfer to high level of care Plan f/u with Hem/Onc locally once d/c'd from the hospital at which time we can consider the use of Eltrombopag Hem/onc recommendations reviewed with attending, Dr. Samuel, and pt.'s primary hem/onc, Dr. Khoury, who are both in agreement with above
[2019-05-14] MEDS: Piperacillin/Tazobac ADVAN(*) 3.375 GM in NS 0.9% 100 ML* 100 ML IVPB SCH ×2 (13:15→18:06)
[2019-05-14] MEDS ORDERED: Insulin LISPRO* 1 UNITS UNIT SUBCUT ONE (13:44)
--- NOTE | 2019-05-14 15:14 | CONS ---
CC: Dr. Alessandro Khoury; Dr. Srinivasan; Dr. Olivas; Dr. Mallory * CONSULTATION REPORT: DATE OF CONSULT: 05/14/19 REASON FOR CONSULT: Acute blood loss anemia, thrombocytopenia, portal hypertension. HISTORY OF PRESENT ILLNESS: This is a pleasant 59-year-old male with a past medical history of portal hypertension; cirrhosis; hepatitis C, status post SVR with Epclusa in 2016; chronic thrombocytopenia; recent squamous cell ENT tumor; and prostate, presenting with continual bright red blood per rectum and occasional hematemesis. Chace states for the last few months he has had bright red blood from the rectum painless that will fill the bowl 4 to 5 times a week, requiring multiple flushes and he states there are clots within it. His H and H had trended down from a high of about 12 a few months ago to a new tashi of 8.2 today. He admits to occasional dizziness and lightheadedness. He states occasionally that he will spit up a little bit of blood with some dry emesis. He denies any melena. Denies any diarrhea. Denies any abdominal pain. He had been evaluated in the past at [facility] for potential transplantation and evaluation, but his MELD score too low to be listed. He was seen by his outpatient physiology teacher, Dr. Holley, recently and there were discussions about potentially considering a colonoscopy; however, he has severe thrombocytopenia and the risks and benefits of this were being discussed between Oncology and GI to evaluate the safest situation to proceed forward. He presented to the hospital yesterday with a platelet count of 17, was given multiple units of platelets and has only come up to 23. He has had a poor response to platelets in the past. He had a previous EGD with Dr. Gaitan that did show grade 1 to 2 esophageal varices without high-risk stigmata. He had a colonoscopy with Dr. Ramirez in 2008 with a hyperplastic polyp that was removed. He denies any leg swelling or edema. Denies any abdominal swelling. Denies any confusion or forgetfulness. Admits to easy bruising. He did have an outpatient hemorrhoid evaluation by Dr. Chahal, who found 1 column that was nonbleeding that he was able to place a band on; however, he did see blood during anoscopy coming from further up within the rectum and colon. Chace admits to some subjective weight loss. Remainder of the 14-point review of systems is grossly negative. PAST MEDICAL HISTORY: 1. Hepatitis C, status post Epclusa with SVR in 2016. 2. Squamous cell carcinoma, ENT tumor in 2014. 3. Recent prostate cancer. 4. Chronic, predominantly thrombocytopenia, but recent pancytopenia after the radiation of the pelvis. 5. Portal hypertension complicated by esophageal varices and splenomegaly. PAST SURGICAL HISTORY: EGD in 2017 with grade 1 to 2 varices, no high-risk stigmata; prostate radiation; in addition knee surgery; and carpal tunnel surgery. HOME MEDICATIONS: Include: 1. Escitalopram. 2. Iron. 3. Lactobacillus. 4. Levothyroxine. 5. Omeprazole. 6. Trazodone. FAMILY HISTORY: No colorectal cancer or GI cancer. Multiple family members with breast cancer. SOCIAL HISTORY: Never a smoker. Alcohol use about 25 years ago, but none since. History of injection drug use, last use was over 40 years ago. REVIEW OF SYSTEMS: Remainder of the 14-point review of systems is grossly negative. PHYSICAL EXAM: Vital Signs: Blood pressure is 139/68, pulse is 68, respiratory rate is 16, he is 98% on room air, and temperature is 97 degrees. In general, chronically ill-appearing, in no acute distress. HEENT: Poor dentition. Sclerae are anicteric. Conjunctivae are pink. Cardiovascular: Regular rate and rhythm. S1, S2. Respiratory: Clear to auscultation bilaterally. Abdomen: Soft, nontender, nondistended. Bowel sounds positive. Extremities: No clubbing, no cyanosis, no edema. Neuro: No asterixis. DIAGNOSTIC STUDIES/LAB DATA: Hemoglobin 8.2, platelet count after multiple transfusions went from 17 to 23 and again 23 today, absolute neutrophil count 0.7, WBC count 1.2. INR 1.52. BUN is 9, creatinine 0.71, calcium 8.5, magnesium 1.6. Total bilirubin 1.3. Ammonia 115. The patient had an abdominal CT scan done on 03/13/19 that revealed cirrhosis, splenomegaly, portal hypertension with a large splenic vein, multiple collaterals consistent with esophageal varices, cholelithiasis. ASSESSMENT AND PLAN: This is a 59-year-old male with pancytopenia multifactorial with acute blood loss anemia and hematochezia. 1. Hematochezia, has been intermittent. He is hemodynamically stable, but his H and Hs continue to downtrend for around 12 to now 8.2. He has multiple movements a week with bright red blood that fills toilet. He certainly needs endoscopic evaluation. This is complicated by his severe thrombocytopenia that has not been platelet responsive in the past. His thrombocytopenia is likely multifactorial with pelvic radiation to contributing along with portal hypertension and cirrhosis and his splenomegaly. He has been given multiple units of platelets without a significant increase. We would keep the H and Hs every 6 hours. Given history of esophageal varices, we would keep on both Protonix and octreotide until stability is established. He is high risk for endoscopic intervention. I had a discussion with Dr. Samuel of Hematology. He has had poor response to the platelet transfusions. Any GI intervention would really require a platelet count above 50 ideally. We do not have platelets readily available to us here and they typically are 3 to 4 hours away at least for a minimum amount. We also do not have the potential for TIPS or for splenectomy here. I feel that he is too high risk for GI intervention in this facility. I would recommend transfer to [facility] for evaluation. Can consider potential thrombocytopenic agent in his cirrhosis in the future; however, his pancytopenia is certainly worsening, which may indicate more secondary to radiation from the bone marrow. His INR has also been increasing with usual baseline around 1.2, now up to 1.6. We would consider a trial of vitamin K. He should also undergo upper endoscopy at the same time of colonoscopy given his esophageal varices. They were grade 2 on the previous exam. 2. Cirrhosis with portal hypertension secondary to hepatitis C virus. His MELD -Na score is 10. Not a transplant candidate at this time. If evidence of ongoing bleeding, consideration for TIPS could be done. He had a recent CT on 03/13/19 that shows the liver is without hepatoma, but certainly has portal hypertensive changes. He is a Child-Tucker B. 3. Pancytopenia, multifactorial. See above. Appreciate Hematology/Oncology input. [id number]/[id number] #: [id number] ALCID[place]
[2019-05-14] MEDS ORDERED: Escitalopram * 20 MG TABLET PO SCH (18:00)
[2019-05-14] MEDS ORDERED: Pantoprazole TAB * 40 MG TAB PO SCH (21:00)
[2019-05-14 21:10] VITALS: BP 102/66
--- NOTE | 2019-05-15 02:35 | TRS ---
CC: Dr. Gómez; Dr. Khoury; Dr. Haydee Brooks * TRANSFER SUMMARY: DATE OF ADMISSION: 05/13/19 DATE OF TRANSFER: 05/14/19 PROVIDER: Angie Del Valle NP ATTENDING PHYSICIAN: Dr. Echols.* (DICTATED BY ANGIE DEL VALLE NP) TRANSFER FACILITY: [facility]. ACCEPTING PHYSICIAN: Dr. Jesus Alberto Watt. PRIMARY DIAGNOSIS: Gastrointestinal bleed with esophageal and rectal varices. SECONDARY DIAGNOSES: 1. Chronic hepatitis C and cirrhosis decompensated by ascites, esophageal varices, and hepatic encephalopathy. 2. Squamous cell cancer of head and neck. 3. Prostate cancer. 4. Splenic pooling. PROCEDURES: Transfused 2 units of packed red blood cells. STUDIES: White blood cell count 1.3, RBC 2.60, hemoglobin 8.9, hematocrit 25, MCV 95, MCH 34, platelet count 23,000, MPV 6.6, absolute neutrophil 0.8, absolute lymphocytes 0.2. INR 1.52. Glucose 142, calcium 8.5, magnesium 1.6, ammonia 115, total protein 5.2, albumin 3.1. HISTORY OF PRESENT ILLNESS/HOSPITAL COURSE: This is a 59-year-old male with a past medical history significant for chronic hepatitis C and cirrhosis and prostate cancer, who came to the emergency room on 05/13/19 with a 3-month history of rectal bleeding, passing clots. Originally, the patient had seen Dr. Holley, GI specialist, in hopes of getting scoped; however, at that time, platelet levels were low. He did not feel comfortable with performing the procedure unless his platelet level was above 50,000, but referred the patient to Dr. Chahal, who according to the patient 2 months ago did banding of an external hemorrhoid, though had noted there had been internal hemorrhoids that he was unable to treat at that time. Despite this intervention, the patient has continued to pass clots rectally every day, has also woken up off and on with blood in his mouth, which he was unclear as to the source, whether it was from his gums or from his throat. The patient opted to come to the emergency room after becoming confused intermittently over the past few days and because he had not stopped bleeding and was concerned. After being admitted, the patient received 2 units of platelets due to an initial platelet count of 17, 000 and platelets only came up to 23,000 this a.m., though the patient seems to be tolerating low hemoglobin well. Denies any dizziness, lightheadedness, chest pain, or shortness of breath; has half to one bloody bowel movement today. Attempted to schedule both an upper and lower endoscopy with Dr. Gómez. He was concerned with the fact that his platelet count was as low as it is and was concerned about continued bleeding during the procedure. I spoke with Dr. Samuel, an oncologist who stated that it would be unrealistic to get his platelet level to the desired level of 50,000, but it was felt that in order to find the source of the bleeding, it is important for the patient to receive endoscopy procedures, though it would be inappropriate to perform those in this facility due to a lack of support in specialty. Today, the patient was seen resting in bed, noted no bleeding from his oral mucosa. Again denied chest pain, shortness of breath. Abdomen was tender to palpation in bilateral upper quadrants, though good bowel sounds, was able to converse with a clear head, was alert and oriented x4. When speaking about the course of his care and the tricky nature of balancing his comorbidities, the patient was aware that the risk of doing a procedure could mean a complication including and he said that he would rather be than live with his current quality of life, which is why he is opting for treatment at this time. REVIEW OF SYSTEMS: An 11-point system review was performed. Please see HPI for pertinent positives and negatives. PHYSICAL EXAM: Vital Signs: 99.7 temperature, 58 pulse, 20 resps, 99% oxygen on room air, and 119/64 blood pressure. General: This is a well-developed gentleman seen resting in bed, slightly jaundiced. No acute distress noted. Eyes: PERRLA. EOMs intact. Conjunctivae slightly yellow but moist. ENT: Oropharynx clear. Mucous membranes moist. Petechiae to the soft palate. Neck is supple. No cervical lymphadenopathy noted. Cardiac: S1, S2 present. Heart rate is regular. No murmurs, gallops, or rubs appreciated. Respiratory: Diminished in bases bilaterally, otherwise clear throughout on room air. No accessory muscle use noted. Abdomen is soft, distended. Tender to bilateral upper quadrants. Normoactive bowel sounds x4. Mild ascites present. Musculoskeletal: Able to move all extremities. No clubbing or cyanosis appreciated in the digits. Skin: No open areas noted. Neurological: Alert and oriented x4. No focal deficits appreciated. Mild symmetrical tongue midline. Psych: Thought content organized. ACTIVE MEDICATIONS: 1. Lactulose 15 mL p.o. t.i.d. 2. Levothyroxine 25 mcg p.o. daily. 3. Octreotide 50 mcg an hour. 4. Zosyn 3.375 g IV q.6 hours. 5. Trazodone 50 mg p.o. q.h.s. p.r.n. 6. Escitalopram 20 mg p.o. daily. 7. Omeprazole 20 mg p.o. b.i.d. ASSESSMENT AND PLAN: This is a 59-year-old male with past medical history significant for chronic hepatitic C, cirrhosis, prostate cancer and squamous cell caner of the head and neck, who was admitted on 05/13/19 for gastrointestinal bleed, suspect both upper and lower GI. 1. Gastrointestinal bleed. Unable to perform either upper or lower endoscopy with intervention due to platelet count of 23,000 despite 2 units of platelets. It is felt that it would be impossible to get his platelet count above 50,000 with our current supply and the patient's inability to retain them. There has been a drop in his H and H. Hematocrit is normally between 30 to 35, so the patient has had a drop from his baseline and platelet count has also been more depressed than it normally is, though unable to actively assess source of bleeding without doing an endoscopy. Started the patient on octreotide, unable to transport the patient on this medication. 2. Chronic hepatitis C with cirrhosis, decompensated by ascites, esophageal varices, and hepatic encephalopathy. Ammonia level currently is 115. The patient is not normally on home lactulose for unknown reasons. Recommend that the patient continue that as well as rifampin to manage ammonia levels both in hospital and when he is discharged. There is a concern that the patient is at risk for spontaneous bacterial peritonitis, so the patient was started on Zosyn 3.375, first dose was today and should continue 4 to 5 days every 6 hours. There is also concern that the patient has not been taking beta-evert. Recommend nadolol upon discharge. His blood pressure is stable. 3. Depression. The patient seems to have a very good understanding of his prognosis and risks with procedures, does not appear to have any acute depression. Please continue the escitalopram and trazodone as needed at bedtime. 4. Gastroesophageal reflux disease. Recommend Protonix drip while the patient is awaiting procedure. 5. Hypothyroidism. Continue levothyroxine. 6. Code status. Full code. DISPOSITION: Transferred to a higher level of care. CONDITION: Guarded. ANGIE DEL VALLE, COIL TIER [id number]/CPS #: [id number] [facility]PITALCarl
== END 2019-05-14 21:15 | disposition short-term general hospital (02) | DRG 441 ==
LOC: ED 18:04 → MEDTELE 05-14 03:52
PROVIDERS: ADMIT Student in an Organized Health Care Education/Training Program; ATTEND Internal Medicine
PROC: 30233R1 Transfusion of Nonautologous Platelets into Peripheral Vein, Percutaneous Approach (ICD-10-PCS; principal; 2019-05-14)
DX: B18.2 Chronic viral hepatitis C (principal); I85.11 Secondary esophageal varices with bleeding; D62 Acute posthemorrhagic anemia; K76.6 Portal hypertension; E72.20 Disorder of urea cycle metabolism, unspecified; D61.818 Other pancytopenia; R18.8 Other ascites; K64.8 Other hemorrhoids; K74.60 Unspecified cirrhosis of liver; F31.9 Bipolar disorder, unspecified; F41.9 Anxiety disorder, unspecified; F98.8 Other specified behavioral and emotional disorders with onset usually occurring in childhood and adolescence; R16.1 Splenomegaly, not elsewhere classified; I10 Essential (primary) hypertension; E78.5 Hyperlipidemia, unspecified; I86.8 Varicose veins of other specified sites; E03.9 Hypothyroidism, unspecified; Z85.828 Personal history of other malignant neoplasm of skin; Z85.46 Personal history of malignant neoplasm of prostate; Z85.89 Personal history of malignant neoplasm of other organs and systems; Z92.21 Personal history of antineoplastic chemotherapy; Z87.891 Personal history of nicotine dependence; Z92.3 Personal history of irradiation
CPT/HCPCS: 36415; 80048; 80053; 82140; 83735; 85025; 85049; 85610; 85730; 86850; 86900; 86901; 99233; 99284; A9270-GY; J2354; J2543; J3475; P9035

== ENCOUNTER 2019-05-24 11:09 | Emergency (ER) | payer MEDICARE ==
--- NOTE | 2019-05-24 11:33 | ED ---
HPI Chest Pain - HPI Summary HPI Summary: Pt is a 59 y/o M presenting to the ED with a chief complaint of chest pain described as throbbing. Pt was recently here for a GI bleed, transferred to [facility] where he had esophageal varices, was given multiple units of blood , had a colonoscopy and endoscopy, and had two vascular stents placed, one to the liver and another to his heart. He now presents with pain in his chest down to his abdomen. He has some shortness of breath, as well as diarrhea with some blood but not as much as before. He denies fever, chills, and vomiting. - History of Current Complaint Chief Complaint: EDChestPainROMI Time Seen by Provider: 05/24/19 11:16 Hx Obtained From: Patient Onset/Duration: Started Hours Ago, Still Present Timing: Constant, Lasting Hours Initial Severity: Moderate Current Severity: Severe Pain Intensity: 7 Pain Scale Used: 0-10 Numeric Chest Pain Location: Mid Sternal Chest Pain Radiates: Yes Chest Pain Radiates To:: Epigastric Character: Other: - throbbing Aggravating Factor(s): Nothing Alleviating Factor(s): Nothing Associated Signs and Symptoms: Positive: Chest Pain, Shortness of Breath. Negative: Fever, Chills, Vomiting - Additional Pertinent History Primary Care Physician: [id number] - Allergy/Home Medications Allergies/Adverse Reactions: Allergies Allergy/AdvReac Type Severity Reaction Status Date / Time No Known Allergies Allergy Verified 05/24/19 11:56 Home Medications: Home Medications Amlodipine Besylate [Norvasc] 10 mg PO DAILY 05/24/19 [History Confirmed ] Lactulose 15 ml PO BID 05/24/19 [History Confirmed 05/24/19] Pantoprazole TAB * [Protonix TAB*] 40 mg PO DAILY 05/24/19 [History Confirmed ] Propranolol TAB* [Inderal TAB*] 20 mg PO BID 05/24/19 [History Confirmed ] PMH/Surg Hx/FS Hx/Imm Hx Previously Healthy: Yes Endocrine/Hematology History: Reports: Hx Blood Transfusions - platelets, Hx 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 Denies: Hx Diabetes, Hx Thyroid Disease Cardiovascular History: Denies: Hx Congestive Heart Failure, Hx Hypertension, Hx Pacemaker/ICD, Hx Peripheral Vascular Disease Respiratory History: Denies: Hx Asthma, Hx Chronic Obstructive Pulmonary Disease (COPD) GI History: Reports: Hx Cirrhosis, Hx Gastrointestinal Bleed, Other GI Disorders - Hepatitis C Denies: Hx Ulcer History: Denies: Hx Renal Disease Musculoskeletal History: Denies: Hx Arthritis, Hx Osteoporosis Sensory History: Reports: Hx Contacts or Glasses Denies: Hx Cataracts, Hx Deafness, Hx Hearing Aid Opthamlomology History: Reports: Hx Contacts or Glasses Denies: Hx Cataracts Neurological History: Denies: Hx Headaches, Hx Seizures, Hx Transient Ischemic Attacks (TIA) Psychiatric History: Reports: Hx Bipolar Disorder Denies: Hx Anxiety, Hx Depression, Hx Panic Disorder - Cancer History Cancer Type, Location and Year: 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 12/22/14- REMOVAL OF LYMPH NODE LEFT NECK- [facility]. bilateral hernia repair late . BILAT CARPAL TUNNEL. LEFT KNEE ARTHROSCOPE Hx Anesthesia Reactions: No - Immunization History Immunizations Up to Date: Yes Infectious Disease History: No Infectious Disease History: Reports: Hx Hepatitis - C Denies: Hx Clostridium Difficile, Hx Human Immunodeficiency Virus (HIV), Hx of Known/Suspected MRSA, Hx Shingles, Hx Tuberculosis, Hx Known/Suspected VRE, Hx Known/Suspected VRSA, History Other Infectious Disease, Traveled Outside the [place] in Last 30 Days - Family History Known Family History: Positive: Hypertension, Diabetes, Other - Ovarian and liver CA - Social History Alcohol Use: None Hx Substance Use: No Substance Use Type: Reports: None Hx Tobacco Use: Yes Smoking Status (MU): Former Smoker Type: Cigarettes Amount Used/How Often: 1/2 ppweek Length of Time of Smoking/Using Tobacco: 1 year Review of Systems Negative: Fever, Chills Positive: Chest Pain Positive: Shortness Of Breath Positive: Abdominal Pain, Diarrhea. Negative: Vomiting All Other Systems Reviewed And Are Negative: Yes Physical Exam - Summary Physical Exam Summary: Constitutional: Well-developed, Well-nourished, Alert. (-) Distressed Skin: Warm, Dry HENT: Normocephalic; Atraumatic Eyes: Conjunctiva normal Neck: Musculoskeletal ROM normal neck. (-) JVD, (-) Stridor, (-) Tracheal deviation Cardio: Rhythm regular, rate normal, Heart sounds normal; Intact distal pulses; Radial pulses are 2+ and symmetric. (-) Murmur Pulmonary/Chest wall: Effort normal. (-) Respiratory distress, (-) Wheezes, (-) Rales Abd: Soft, Periumbilical ecchymosis. No tenderness, (-) Distension, (-) Guarding , (-) Rebound Musculoskeletal: (-) Edema Lymph: (-) Cervical adenopathy Neuro: Alert, Oriented x3 Psych: Mood and affect Normal Triage Information Reviewed: Yes Vital Signs On Initial Exam: Initial Vitals Temp Pulse Resp BP Pulse Ox 97.8 F 57 17 141/78 96 05/24/19 11:13 05/24/19 11:13 05/24/19 11:13 05/24/19 11:13 05/24/19 11:13 Vital Signs Reviewed: Yes Procedures - Sedation Patient Received Moderate/Deep Sedation with Procedure: No Diagnostics - Vital Signs Vital Signs Temp Pulse Resp BP Pulse Ox 05/24/19 11:13 97.8 F 57 17 141/78 96 - Laboratory Result Diagrams: 05/24/19 11:43 05/24/19 11:43 Lab Statement: Any lab studies that have been ordered have been reviewed, and results considered in the medical decision making process. - CT CTA C/A/P CT Interpretation Completed By: Radiologist Summary of CT Findings: Findings consistent with CHF and bilateral pleural effusions. A portal caval shunt is in place. Cirrhotic liver with marked splenomegaly and dilated splenic vein consistent with portal hypertension. No evidence of aortic dissection is noted. ED physician has reviewed this report. - EKG 1111 Cardiac Rate: NL - 62bpm EKG Rhythm: 1st Degree HB ST Segment: Normal Ectopy: None Summary of EKG Findings: EKG at 1111 shows NSR at 62bpm with 1st degree HB and no STEMI. No acute changes. ED physician has reviewed and interpreted this EKG. Re-Evaluation - Re-Evaluation 1st re-eval Re-Evaluation Time: 14:30 Change: Unchanged Comment: Pt ambulated on pulse oximeter. De-satted to 86%. Chest Pain Course/Dx - Course Course Of Treatment: Patient is here with new onset CHF secondary to his recent TIPS procedure. Patient came in borderline hypoxemic on room air. Patient showed exertional hypoxemia with a ox and saturation of 86% while ambulating. Patient is complaining of pain following this TIPS procedure. Patient had blood performed which showed a worsening T bili, INR. Patient does have platelets of 37 which is above his baseline. Patient is CTA of his chest/arms/ pelvis which showed portal hypertension, cardiac megaly, pulmonary edema consistent with new-onset CHF. Patient had a BNP of 420 and a troponin of 0.03. GI was counseled today and they recommended transfer as I think this is likely related to the TIPS procedure and he will need a TIPS revision. - Diagnoses Provider Diagnoses: Exercise hypoxemia, Fluid overload, Cardiomegaly, Cirrhosis, Hyperammonemia, Hyperbilirubinemia, New onset of congestive heart failure - Critical Care Time Critical Care Time: 30-74 min - 35min Discharge ED - Sign-Out/Discharge Documenting (check all that apply): Patient Departure - Discharge Plan Condition: Stable Disposition: TRANS HIGHER LVL OF CARE FAC Referrals: Chelsie Huerta MD [Primary Care Provider] - - Billing Disposition and Condition Condition: STABLE Disposition: Trans Higher Lvl of Care Fac - Attestation Statements Document Initiated by Laviniaibe: Yes Documenting Scribe: Saranya Moon Provider For Whom Rika is Documenting (Include Credential): Son Yap MD. Scribe Attestation: ISaranya scribed for Son Yap MD. on 05/24/19 at 1658. Scribe Documentation Reviewed: Yes Provider Attestation: The documentation as recorded by the laviniaibeSaranya accurately reflects the service I personally performed and the decisions made by me, Son Yap MD. Status of Scribe Document: Viewed Consult Consult: 1503 - I spoke with Dr. Briscoe about the pt's present condition who will come to evaluate the pt for admission. 1540 - Dr. Briscoe would like me to consult GI prior to admitting the pt to [facility]. 1555 - Dr. Gutiérrez recommends transferring the pt to [facility]. 1634 - Dr. Darnell of [facility] accepts pt to hospitalist services.
[2019-05-24 11:53] LABS: ABS Eosinophils 0.2 10^3/ul (0-0.6); ABS Lymphocytes 0.4 10^3/ul (1.0-4.8); ABS Monocytes 0.5 10^3/ul (0-0.8); ABS Neutrophils 2.6 10^3/ul (1.5-7.7); Eosinophil % 6.2 %; Hematocrit 27 % (42-52); Hemoglobin 9.6 g/dL (14.0-18.0); Lymphocyte % 11.2 %; Mean Corpuscular HGB Conc 36 g/dL (31-36); Mean Corpuscular Hemoglobin 33 pg (27-31); Mean Corpuscular Volume 91 fL (80-94); Mean Platelet Volume 6.3 fL (7.4-10.4); Nucleated Red Blood Cells % 0.2; Platelet Count 37 10^3/uL (150-450); Red Blood Count 2.94 10^6 /uL (4.18-5.48); Red Cell Distribution Width 16 % (10-15); White Blood Count 3.8 10^3/uL (3.5-10.8)
[2019-05-24 11:55] LABS: INR 2.18 (0.82-1.09)
[2019-05-24 12:00] LABS: Albumin 3.5 g/dL (3.2-5.2); Anion Gap 2 mmol/L (2-11); CO2 Carbon Dioxide 29 mmol/L (22-32); Calcium 8.6 mg/dL (8.6-10.3); Chloride 104 mmol/L (101-111); Potassium 4.1 mmol/L (3.5-5.0); Sodium 135 mmol/L (135-145)
[2019-05-24 12:06] LABS: ALT 36 U/L (7-52); AST 72 U/L (13-39); Albumin/Globulin Ratio 1.4 (1-3); Alkaline Phosphatase 58 U/L (34-104); BUN/Creatinine Ratio 24.2 (8-20); Blood Urea Nitrogen 16 mg/dL (6-24); EGFR African American 148.5 (>60); EGFR Non-African American 122.7 (>60); Globulin 2.5 g/dL (2-4); Glucose 141 mg/dL (70-100)
[2019-05-24] MEDS ORDERED: Iohexol 350* (CONTRAST) 500 ML MDV IV ONE (12:09)
[2019-05-24 12:11] LABS: Troponin I 0.03 ng/mL (<0.03)
--- OUTSIDE RECORDS SUMMARY | 2019-05-24 12:22 | XMS REPORT | Continuity of Care Document ---
:1960 External Reference #:[id number] Author Name Robles Chahal MD, FACS (transmitted by agent of provider Evita Jensen) Address [address] [place] [address] Care Team Providers Name Role Phone Evita Ewing MD - Hand Surgery Care Team Information Human Development Professor Chelsie Huerta MD - Internal Care Team Information Human Development Professor Medicine Problems Active Problems Provider Date Chronic hepatitis C Chelsie Huerta M.D. Onset: 03/20/2010 Type 2 diabetes mellitus Chelsie Huerta M.D. Onset: 03/20/2010 Squamous cell carcinoma Keegan Almendarez NP Onset: 12/16/2014 Note: head and neck Depressive disorder Chelsie Huetra M.D. Onset: 01/22/2015 Social History Type Date Description Comments Sex Unknown Tobacco Use Start: Unknown Never Smoked Cigarettes ETOH Use Denies alcohol use Tobacco Use Start: Unknown End: Patient is a former Unknown smoker Recreational Drug Use Denies Drug Use Smoking Status Reviewed: 04/14/19 Patient is a former smoker Exercise Type/Frequency Exercises sporadically Playing golf 2-3 x/week Allergies, Adverse Reactions, Alerts Active Allergies Reaction Severity Comments Date NKDA 08/18/2014 Inactive Allergies Flu Virus Vaccine h/a & vomiting Moderate 03/20/2010 Medications Active Medications SIG Qnty Indications Ordering Provider Date Heating Pad Dry Heat use on neck 20 1units 847.0 Keegan Almendarez NP 08/31/2014 minutes every Pads few hours. Lidocaine Viscous gargle with 15ml Unknown 2% every 4 hours as Solution needed Levothyroxine Sodium 1 by mouth every Unknown day 25mcg Tablets Escitalopram Oxalate 30mg by mouth Unknown 20mg every day Tablets Medications Administered in Office Medication SIG Qnty Indications Ordering Provider Date PPD Nurse Visit A 08/28/2013 Injection PPD Rebekah BhardwajKamille, 09/05/2012 Injection N.P. Immunizations CPT Code Status Date Vaccine Lot # [id number] Given 08/28/2013 Tdap - Tetanus/Diptheria/Acellular Pertussis [id number] Given 07/10/2011 Hepatitis B Vaccine Adult Dosage 17466 Given 07/05/2011 Hepatitis B Vaccine Adult Dosage [id number] Given 12/02/2008 Hepatitis B Vaccine Adult Dosage 83947 Given 08/04/2008 Hepatitis B Vaccine Adult Dosage 06870 Given 08/04/2008 Hepatitis A Vaccine Adult Dosage 92540 Given 04/01/2006 Pneumonia Vaccine 90983 Given 04/01/2006 Pneumonia Vaccine 61867 Given 01/29/2006 Hepatitis A Vaccine Adult Dosage Vital Signs Date Vital Result Comment 04/14/2019 10:24am Heart Rate 72 /min BP Systolic 156 mmHg BP Diastolic 80 mmHg Respiratory Rate 18 /min Body Temperature 98.0 F 04/09/2019 8:46am Heart Rate 84 /min BP Systolic Sitting 150 mmHg BP Diastolic Sitting 70 mmHg Respiratory Rate 16 /min Body Temperature 98.5 F Results Test Date Facility Test Result H/L Range Note Platelet Count 04/08/2019 [facility] Platelet Count 23 10^3/uL Low 150-[address] [place] [address] [phone] Mean Platelet Volume 6.4 fL Low 7.4-10.4 Laboratory test 04/07/2019 [facility] Platelet Pheresis SEE RESULTS [address] Leukoreduced BELO <[place] [address] NOTE> [phone] Type & Screen 04/07/2019 [facility] Patient Blood Type AB Positive [address] [place] [address] [phone] Antibody Screen NEGATIVE CBC Auto 04/07/2019 [facility] White Blood 2.7 10^3/uL Low 3.5 -10.[address] [place] [address] [phone] Red Blood Count 3.07 10^6/uL Low 4.18-5.48 Hemoglobin 10.6 g/dL Low 14.0-18.0 Hematocrit 29 % Low 42-52 Mean Corpuscular Volume 95 fL High 80-94 Mean Corpuscular Hemoglobin 34 pg High 27-31 Mean Corpuscular HGB Conc 36 g/dL Normal 31-36 Red Cell Distribution Width 17 % High 10-15 Platelet Count 23 10^3/uL Low 150-450 2 Mean Platelet Volume 7.2 fL Low 7.4-10.4 Abs Neutrophils 1.8 10^3/uL Normal 1.5-7.7 Abs Lymphocytes 0.4 10^3/uL Low 1.0-4.8 Abs Monocytes 0.2 10^3/uL Normal 0-0.8 Abs Eosinophils 0.2 10^3/uL Normal 0-0.6 Abs Basophils 0.0 10^3/uL Normal 0-0.2 Abs Nucleated RBC 0.0 10^3/uL Granulocyte % 68.8 % Lymphocyte % 14.1 % Monocyte % 9.2 % Eosinophil % 7.4 % Basophil % 0.5 % Nucleated Red Blood Cells % 0.1 Laboratory 04/07/2019 [facility] Partial 37.1 Normal 26.0- 38.[address] [address] PTT [phone] Inr/Protime 04/07/2019 [facility] Inr 1.31 High 0.82-1.[address] [place] [address] [phone] Laboratory 03/18/2019 [facility] Ferritin 67.2 ng/mL Normal 24 -[address] [place], [place] [id number] [phone] Iron & Iron 03/18/2019 [facility] Iron 74 g/dL Normal 50- [address] [place] [address] [phone] Unsaturated Iron Binding < 275 g/dL Total Iron Binding Capacity 290 g/dL Normal 250-450 Transferrin 207 mg/dL Normal 203-362 % Iron Saturation 26 % Normal 15-55 Laboratory test 03/18/2019 [facility] PSA Diagnostic 0.060 Normal 0-4.[address] ng/[place] [address] [phone] Comp Metabolic 03/18/2019 [facility] Sodium 137 Normal 135- [address] mmol/L [place], [place] [id number] [phone] Potassium 3.9 mmol/L Normal 3.5-5.0 Chloride 107 mmol/L Normal 101-111 Co2 Carbon Dioxide 27 mmol/L Normal 22-32 Anion Gap 3 mmol/L Normal 2-11 Glucose 150 mg/dL High 70-100 Blood Urea Nitrogen 11 mg/dL Normal 6-24 Creatinine 0.60 mg/dL Low 0.67-1.17 BUN/Creatinine Ratio 18.3 Normal 8-20 Calcium 8.8 mg/dL Normal 8.6-10.3 Total Protein 5.5 g/dL Low 6.4-8.9 Albumin 3.3 g/dL Normal 3.2-5.2 Globulin 2.2 g/dL Normal 2-4 Albumin/Globulin Ratio 1.5 Normal 1-3 Total Bilirubin 1.60 mg/dL High 0.2-1.0 Alkaline Phosphatase 63 U/L Normal 34-104 Alt 32 U/L Normal 7-52 Ast 48 U/L High 13-39 Egfr Non- 137.0 >60 Egfr 165.7 >60 5 CBC Auto 03/18/2019 [facility] White Blood 1.6 10^3/uL Low 3.5 -10.[address] [place] [address] [phone] Red Blood Count 3.10 10^6/uL Low 4.18-5.48 Hemoglobin 10.8 g/dL Low 14.0-18.0 Hematocrit 29 % Low 42-52 Mean Corpuscular Volume 94 fL Normal 80-94 Mean Corpuscular Hemoglobin 35 pg High 27-31 Mean Corpuscular HGB Conc 37 g/dL High 31-36 Red Cell Distribution Width 15 % Normal 10-15 Platelet Count 23 10^3/uL Low 150-450 6 Mean Platelet Volume 6.4 fL Low 7.4-10.4 Abs Neutrophils 1.0 10^3/uL Low 1.5-7.7 Abs Lymphocytes 0.3 10^3/uL Low 1.0-4.8 Abs Monocytes 0.2 10^3/uL Normal 0-0.8 Abs Eosinophils 0.2 10^3/uL Normal 0-0.6 Abs Basophils 0.0 10^3/uL Normal 0-0.2 Abs Nucleated RBC 0.0 10^3/uL Granulocyte % 59.7 % Lymphocyte % 18.7 % Monocyte % 10.5 % Eosinophil % 9.9 % Basophil % 1.2 % Nucleated Red Blood Cells % 0.1 CBC Auto 02/26/2019 [facility] White Blood 2.0 10^3/uL Low 3.5 -10.[address] Count [place], [place] [address] [phone] Red Blood Count 2.98 10^6/uL Low 4.18-5.48 Hemoglobin 10.5 g/dL Low 14.0-18.0 Hematocrit 28 % Low 42-52 Mean Corpuscular Volume 94 fL Normal 80-94 Mean Corpuscular Hemoglobin 35 pg High 27-31 Mean Corpuscular HGB Conc 38 g/dL High 31-36 Red Cell Distribution Width 15 % Normal 10-15 Platelet Count 18 10^3/uL Low 150-450 7 Mean Platelet Volume 6.5 fL Low 7.4-10.4 Granulocyte % 59.3 % Abs Neutrophils 1.2 10^3/uL Low 1.5-7.7 Abs Lymphocytes 0.4 10^3/uL Low 1.0-4.8 Abs Monocytes 0.2 10^3/uL Normal 0-0.8 Abs Eosinophils 0.2 10^3/uL Normal 0-0.6 Abs Basophils 0.0 10^3/uL Normal 0-0.2 Abs Nucleated RBC 0.0 10^3/uL Lymphocyte % 20.1 % Monocyte % 11.2 % Eosinophil % 8.6 % Basophil % 0.8 % Nucleated Red Blood Cells % 0.0 Laboratory test 02/17/2019 [facility] Pheresis SEE RESULTS [address] Platelets BELO <[place] [address] NOTE> [phone] Pathologist Review (SEE NOTE) 9 Type & Screen 02/17/2019 [facility] Patient Blood Type AB Positive [address] [place] [address] [phone] Antibody Screen NEGATIVE CBC Auto 02/17/2019 [facility] White Blood 1.5 10^3/uL Low 3.5 -10.[address] [place] [address] [phone] Red Blood Count 3.09 10^6/uL Low 4.18-5.48 Hemoglobin 10.6 g/dL Low 14.0-18.0 Hematocrit 29 % Low 42-52 Mean Corpuscular Volume 95 fL High 80-94 Mean Corpuscular Hemoglobin 34 pg High 27-31 Mean Corpuscular HGB Conc 36 g/dL Normal 31-36 Red Cell Distribution Width 16 % High 10-15 Abs Neutrophils 1.0 10^3/uL Low 1.5-7.7 Abs Lymphocytes 0.3 10^3/uL Low 1.0-4.8 Abs Monocytes 0.1 10^3/uL Normal 0-0.8 Abs Eosinophils 0.1 10^3/uL Normal 0-0.6 Abs Basophils 0.0 10^3/uL Normal 0-0.2 Abs Nucleated RBC 0.0 10^3/uL Granulocyte % 62.1 % Lymphocyte % 19.8 % Monocyte % 9.1 % Eosinophil % 8.0 % Basophil % 1.0 % Nucleated Red Blood Cells % 0.1 Platelet Count 16 10^3/uL Critical low 150-450 Mean Platelet Volume 6.7 fL Low 7.4-10.4 Stool Occult 02/17/2019 [facility] Stool Occult SEE RESULT 10 Blood, Screen [address] Blood, [place] [address] Screen [phone] Inr/Protime 02/17/2019 [facility] Inr 1.49 High 0.82- [address] 1.09 [place] [address] [phone] Laboratory test 02/17/2019 [facility] Partial 40.1 seconds High 26.0- finding [address] Thrombo Time 38.0 [place] [address] PTT [phone] Comp Metabolic 02/17/2019 [facility] Sodium 137 mmol/L Normal 135-[address] [place] [address] [phone] Potassium 3.8 mmol/L Normal 3.5-5.0 Chloride 106 mmol/L Normal 101-111 Co2 Carbon Dioxide 27 mmol/L Normal 22-32 Anion Gap 4 mmol/L Normal 2-11 Glucose 184 mg/dL High 70-100 Blood Urea Nitrogen 8 mg/dL Normal 6-24 Creatinine 0.67 mg/dL Normal 0.67-1.17 BUN/Creatinine Ratio 11.9 Normal 8-20 Calcium 9.2 mg/dL Normal 8.6-10.3 Total Protein 5.9 g/dL Low 6.4-8.9 Albumin 3.6 g/dL Normal 3.2-5.2 Globulin 2.3 g/dL Normal 2-4 Albumin/Globulin Ratio 1.6 Normal 1-3 Total Bilirubin 2.30 mg/dL High 0.2-1.0 Alkaline Phosphatase 59 U/L Normal 34-104 Alt 52 U/L Normal 7-52 Ast 71 U/L High 13-39 Egfr Non- 120.6 >60 Egfr 145.9 >60 12 CBC Auto 12/30/2018 [facility] Red Blood 3.42 10^6/uL Low 4.18 -5.[address] [place] [address] [phone] White Blood Count 2.2 10^3/uL Low 3.5-10.8 Hemoglobin 11.5 g/dL Low 14.0-18.0 Hematocrit 31 % Low 42-52 Mean Corpuscular Volume 91 fL Normal 80-94 Mean Corpuscular Hemoglobin 34 pg High 27-31 Mean Corpuscular HGB Conc 37 g/dL High 31-36 Red Cell Distribution Width 16 % High 10-15 Platelet Count 22 10^3/uL Low 150-450 13 Mean Platelet Volume 7.4 fL Normal 7.4-10.4 Abs Neutrophils 1.4 10^3/uL Low 1.5-7.7 Abs Lymphocytes 0.4 10^3/uL Low 1.0-4.8 Abs Monocytes 0.2 10^3/uL Normal 0-0.8 Abs Eosinophils 0.1 10^3/uL Normal 0-0.6 Abs Basophils 0.0 10^3/uL Normal 0-0.2 Abs Nucleated RBC 0.0 10^3/uL Granulocyte % 66.6 % Lymphocyte % 18.4 % Monocyte % 8.5 % Eosinophil % 6.0 % Basophil % 0.5 % Nucleated Red Blood Cells % 0.0 Retic Count 12/30/2018 [facility] Retic Count 2.9 % High 0.5- 1.[address] [place] [address] [phone] Mean Retic Volume 114.0 Immature Retic Fraction 0.49 RBC Retic Count 3.42 10^6/uL Low 4.18-5.48 Corrected Retic Count 1.9 % High 0.5-1.5 Maturation Factor Retic 1.5 Retic Index 1.30 Hematocrit for Retic CNT 31 % Low 42-52 Comp Metabolic 12/30/2018 [facility] Sodium 136 mmol/L Normal 135-[address] [place] [address] [phone] Potassium 4.2 mmol/L Normal 3.5-5.0 Chloride 108 mmol/L Normal 101-111 Co2 Carbon Dioxide 22 mmol/L Normal 22-32 Anion Gap 6 mmol/L Normal 2-11 Glucose 174 mg/dL High 70-100 Blood Urea Nitrogen 12 mg/dL Normal 6-24 Creatinine 0.63 mg/dL Low 0.67-1.17 BUN/Creatinine Ratio 19.0 Normal 8-20 Calcium 9.6 mg/dL Normal 8.6-10.3 Total Protein 6.6 g/dL Normal 6.4-8.9 Albumin 3.8 g/dL Normal 3.2-5.2 Globulin 2.8 g/dL Normal 2-4 Albumin/Globulin Ratio 1.4 Normal 1-3 Total Bilirubin 1.90 mg/dL High 0.2-1.0 Alkaline Phosphatase 47 U/L Normal 34-104 Alt 39 U/L Normal 7-52 Ast 52 U/L High 13-39 Egfr Non- 129.9 >60 Egfr 157.2 >60 14 Laboratory test 12/30/2018 [facility] Cold Agglutinin <1:64 < 1:64 [address] Screen/[place] [address] [phone] Platelet Count 12/09/2018 [facility] Platelet Count 24 Low 150 -[address] 10^3/[place] [address] [phone] Mean Platelet Volume 7.0 fL Low 7.4-10.4 Laboratory test 12/09/2018 [facility] Pheresis SEE RESULTS 17, [address] Platelets BELO <[place] [address] NOTE> [phone] CBC Auto Diff 12/09/2018 [facility] White Blood 2.1 10^3/uL Low 3.5- [address] Count 10.8 [place] [address] [phone] Red Blood Count 3.41 10^6/uL Low 4.18-5.48 Hemoglobin 11.4 g/dL Low 14.0-18.0 Hematocrit 31 % Low 42-52 Mean Corpuscular Volume 92 fL Normal 80-94 Mean Corpuscular Hemoglobin 33 pg High 27-31 Mean Corpuscular HGB Conc 36 g/dL Normal 31-36 Red Cell Distribution Width 16 % High 10-15 Abs Neutrophils 1.4 10^3/uL Low 1.5-7.7 Abs Lymphocytes 0.4 10^3/uL Low 1.0-4.8 Abs Monocytes 0.2 10^3/uL Normal 0-0.8 Abs Eosinophils 0.1 10^3/uL Normal 0-0.6 Abs Basophils 0.0 10^3/uL Normal 0-0.2 Abs Nucleated RBC 0.0 10^3/uL Granulocyte % 65.2 % Lymphocyte % 17.5 % Monocyte % 10.1 % Eosinophil % 6.8 % Basophil % 0.4 % Nucleated Red Blood Cells % 0.2 Platelet Count 19 10^3/uL Low 150-450 19 Mean Platelet Volume 6.5 fL Low 7.4-10.4 CBC Auto 11/10/2018 [facility] White Blood 2.0 10^3/uL Low 3.5 -10.[address] [place] [address] [phone] Red Blood Count 3.41 10^6/uL Low 4.18-5.48 Hemoglobin 11.5 g/dL Low 14.0-18.0 Hematocrit 32 % Low 42-52 Mean Corpuscular Volume 93 fL Normal 80-94 Mean Corpuscular Hemoglobin 34 pg High 27-31 Mean Corpuscular HGB Conc 36 g/dL Normal 31-36 Red Cell Distribution Width 16 % High 10.5-15 Platelet Count 23 10^3/uL Low 150-450 Mean Platelet Volume 6.4 fL Low 7.4-10.4 Abs Neutrophils 1.2 10^3/uL Low 1.5-7.7 Abs Lymphocytes 0.3 10^3/uL Low 1.0-4.8 Abs Monocytes 0.2 10^3/uL Normal 0-0.8 Abs Eosinophils 0.2 10^3/uL Normal 0-0.6 Abs Basophils 0.0 10^3/uL Normal 0-0.2 Abs Nucleated RBC 0.0 10^3/uL Granulocyte % 61.9 % Lymphocyte % 16.3 % Monocyte % 9.4 % Eosinophil % 11.5 % Basophil % 0.9 % Nucleated Red Blood Cells % 0.0 Laboratory test 11/10/2018 [facility] Direct Zain NEGATIVE finding [address] [place] [address] [phone] Afp Tumor Marker 6.4 ng/mL Abnormal <6.0 20 Lyme Screen W/ Reflex To WB Negative Negative Iron & Iron Binding 10/24/2018 [facility] Iron 105 g/dL Normal 50-212 Capacity [address] [place] [address] [phone] Unsaturated Iron Binding < 286 g/dL Total Iron Binding Capacity 301 g/dL Normal 250-450 Transferrin 215 mg/dL Normal 203-362 % Iron Saturation 35 % Normal 15-55 Laboratory test 10/24/2018 [facility] Ferritin 80.6 ng/mL Normal 24-336 finding [address] [place] [address] [phone] Vitamin B12 916 pg/mL High 180-914 21 Retic Count 10/24/2018 [facility] Retic Count 3.1 % High 0.5- 1.5 [address] [place] [address] [phone] Mean Retic Volume 118.0 Immature Retic Fraction 0.56 Corrected Retic Count 2.2 % High 0.5-1.5 Maturation Factor Retic 1.5 Retic Index 1.50 RBC Retic Count 3.45 10^6/uL Low 4.18-5.48 Hematocrit for Retic CNT 32 % Low 36-46 CBC Auto 10/24/2018 [facility] White Blood 2.7 10^3/uL Low 3.5 -10.8 Diff [address] [facility] [place] [address] [phone] Red Blood Count 3.45 10^6/uL Low 4.18-5.48 Hemoglobin 11.7 g/dL Low 14.0-18.0 Hematocrit 32 % Low 36-46 Mean Corpuscular Volume 93 fL Normal 80-94 Mean Corpuscular Hemoglobin 34 pg High 27-31 Mean Corpuscular HGB Conc 36 g/dL Normal 31-36 Red Cell Distribution Width 16 % High 10.5-15 Platelet Count 27 10^3/uL Low 150-450 22 Mean Platelet Volume 6.7 fL Low 7.4-10.4 Abs Neutrophils 1.8 10^3/uL Normal 1.5-7.7 Abs Lymphocytes 0.4 10^3/uL Low 1.0-4.8 Abs Monocytes 0.2 10^3/uL Normal 0-0.8 Abs Eosinophils 0.3 10^3/uL Normal 0-0.6 Abs Basophils 0 10^3/uL Normal 0-0.2 Abs Nucleated RBC 0 10^3/uL Granulocyte % 64.5 % Lymphocyte % 14.4 % Monocyte % 8.4 % Eosinophil % 12.0 % Basophil % 0.7 % Nucleated Red Blood Cells % 0 Protein 10/24/2018 [facility] Total 6.5 g/dL 6.3 - Electrophoresis [address] Protein(Pep) 7.9 [place] [address] [phone] Albumin 3.4 g/dL 3.4-4.7 Alpha-1 Globulin 0.2 g/dL 0.1-0.3 Alpha-2 Globulin 0.7 g/dL 0.6-1.0 Beta Globulin 0.7 g/dL 0.7-1.2 Gamma Globulin 1.5 g/dL 0.6-1.6 Albumin/Globulin Ratio 1.09 Impression See Comment 23 1 SEE RESULTS BELOW [id number] AP PHPLTLR TRANSFUSED 04/07/192015 2 Consistent with Previous Results Reported on 03/18/19. 3 Standard intensity warfarin therapeutic range: 2.0-3.0 High intensity warfarin therapeutic range: 2.5-3.5 4 Serum levels of PSA measured using the [employer] DXI Hybritech immunoassay should not be interpreted as absolute evidence of the presence or absence of disease. The PSA value should be used in conjunction with other pertinent clinical diagnostic procedures. A PSA value in the range of 0.1 to 0.6 ng/ml is indeterminate if being used as an indicator of recurrent or residual disease. The values obtained with different assay methods or kits cannot be used interchangeably. 5 Because ethnic data is not always readily available, this report includes an eGFR for both -Americans and non- Americans. The National Kidney Disease Education Program (NKDEP) does not endorse the use of the MDRD equation for patients that are not between the ages of 18 and 70, are , have extremes of body size, muscle mass, or nutritional status, or are non- or non-. According to the National Kidney Foundation, irrespective of diagnosis, the stage of the disease is based on the level of kidney function: Stage Description GFR(mL/min/1.73 m(2)) 1 Kidney damage with normal or decreased GFR 90 2 Kidney damage with mild decrease in GFR 60-89 3 Moderate decrease in GFR 30-59 4 Severe decrease in GFR 15-29 5 Kidney failure <15 (or dialysis) 6 Consistent with Previous Results Reported on 02/26/19 7 Consistent with Previous Results Reported on 02/17/19 8 SEE RESULTS BELOW [id number] OP PHPLT TRANSFUSED 02/18/19 0054 9 Pancytopenia with marked thrombocytopenia. Reviewed by Elisabeth Aceves MD 10 SEE RESULT BELOW Name: ROBLES RUSHING : [address]: Diamante Pino MD Acct: [id number] Unit: [id number] AGE: 59 Location: ED Re02/17/19 SEX: M Status: REG ER SPEC: [id number] MAGGI: 02/17/19-2316 [facility] DR: Diamante Pino MD REQ: [id number] RECD: 02/18/190122 STATUS: COMP INDY DR: Chelsie Huerta MD _ SOURCE: STOOL SPDESC: ORDERED: Occult Bl, Scn Procedure Result Reported Site Stool Occult Blood (1) Final 02/18/19- 0129 ML Stool Occult Blood Negative * ML - Main Lab . END OF REPORT DEPARTMENT OF PATHOLOGY, [address] [place] [address] Suresh Noonan M.D. Director [facility] # [id number] 11 Standard intensity warfarin therapeutic range: 2.0-3.0 High intensity warfarin therapeutic range: 2.5-3.5 12 Because ethnic data is not always readily available, this report includes an eGFR for both -Americans and non- Americans. The National Kidney Disease Education Program (NKDEP) does not endorse the use of the MDRD equation for patients that are not between the ages of 18 and 70, are , have extremes of body size, muscle mass, or nutritional status, or are non- or non-. According to the National Kidney Foundation, irrespective of diagnosis, the stage of the disease is based on the level of kidney function: Stage Description GFR(mL/min/1.73 m(2)) 1 Kidney damage with normal or decreased GFR 90 2 Kidney damage with mild decrease in GFR 60-89 3 Moderate decrease in GFR 30-59 4 Severe decrease in GFR 15-29 5 Kidney failure <15 (or dialysis) 13 Consistent with Previous Results Reported on 12/09/18 14 Because ethnic data is not always readily available, this report includes an eGFR for both -Americans and non- Americans. The National Kidney Disease Education Program (NKDEP) does not endorse the use of the MDRD equation for patients that are not between the ages of 18 and 70, are , have extremes of body size, muscle mass, or nutritional status, or are non- or non-. According to the National Kidney Foundation, irrespective of diagnosis, the stage of the disease is based on the level of kidney function: Stage Description GFR(mL/min/1.73 m(2)) 1 Kidney damage with normal or decreased GFR 90 2 Kidney damage with mild decrease in GFR 60-89 3 Moderate decrease in GFR 30-59 4 Severe decrease in GFR 15-29 5 Kidney failure <15 (or dialysis) 15 Test Performed by: [address] [id number] 16 Consistent with Previous Results Reported on 12/09/18. 17 LAB 18 SEE RESULTS BELOW [id number] [facility] 12/09/18 1512 19 Platelet count confirmed by estimate 20 AFP values are <6 ng/mL for 95%, and <15 ng/mL for 99% of the normal population. Two percent of non- healthy individuals, without liver disease, hepatocellular carcinoma, or germ-cell tumors, may have AFP test values exceeding 6 ng/mL. Furthermore, "persistence of alpha-fetoprotein", an uncommon hereditary trait, may cause elevations of AFP above the reference interval. ADDITIONAL INFORMATION The testing method is an immunoenzymatic assay manufactured by [employer] and performed on the [employer] Uretim DxI 800. Values obtained with different assay methods or kits may be different and cannot be used interchangeably. Test results cannot be interpreted as absolute evidence for the presence or absence of malignant disease. Alpha-Fetoprotein values are not interpretable in females for the investigation of malignant disease. Test Performed by: [facility] - [address] [address] 21 Normal Range 180 to 914 Indeterminate Range 145 to 180 Deficient Range <145 22 Consistent with Previous Results Reported on 10/09/18. 23 RESULT: No apparent monoclonal protein on serum electrophoresis. Test Performed by: [facility] - [address] [address] Procedures Date Code Description Status 04/14/2019 63035 Anoscopy Completed 04/09/2019 50719 Anoscopy Completed 03/30/2019 50363 Hemorrhoidectomy, Internal, By Rubber Band Ligation(S) Completed 12/06/2018 [id number] Diabetic Retinal Eye Exam Completed 04/19/2016 023278320 Diabetic Retinal Eye Exam Completed 11/09/2014 885024066 Diabetic Retinal Eye Exam Completed 12/05/2012 493320807 Diabetic Retinal Eye Exam Completed 12/01/2012 [id number] Diabetic Retinal Eye Exam Completed 02/05/2011 890675123 Diabetic Foot Exam Completed 02/24/2009 326059359 Diabetic Foot Exam Completed 09/02/2008 37385615 Colonoscopy Completed Medical Devices Description No Information Available Encounters Type Date Location Provider Dx Diagnosis Office Visit 04/09/2019 [facility]al, K64.1 Second degree 8:[facility]a [facility], FACS hemorrhoids D50.0 Iron deficiency anemia secondary to blood loss (chronic) K92.1 Melena Office Visit 03/30/2019 11:30a [facility] Bravo64.1 Second degree [facility] MD, hemorrhoids FACS D50.0 Iron deficiency anemia secondary to blood loss (chronic) Assessments Date Code Description Provider 04/14/2019 K64.1 Second degree hemorrhoids Robles Chahal MD, FACS 04/14/2019 D50.0 Iron deficiency anemia secondary to blood Robles Chahal MD, FACS loss (chronic) 04/14/2019 K92.1 Melena Robles Chahal MD, FACS 04/09/2019 K64.1 Second degree hemorrhoids Robles Chahal MD, FACS 04/09/2019 D50.0 Iron deficiency anemia secondary to blood Robles Chahal MD, FACS loss (chronic) 04/09/2019 K92.1 Melena Robles Chahal MD, FACS 03/30/2019 K64.1 Second degree hemorrhoids Robles Chahal MD, FACS 03/30/2019 D50.0 Iron deficiency anemia secondary to blood Robles Chahal MD, FACS loss (chronic) Plan of Treatment 04/14/2019 - Robles Chahal MD, FACSK64.1 Second degree hemorrhoidsFollow up: As msnlreP31.0 Iron deficiency anemia secondary to blood loss (chronic)Referral: Duncan Holley MD, OgtbetubaedvblxuS87.1 Melena Functional Status Description No Information Available Mental Status Description No Information Available Referrals Refer to Dr Reason for Referral Status Appt Date Duncan Holley MD [facility] [address] [facility] [place] [id number] [phone]
--- OUTSIDE RECORDS SUMMARY | 2019-05-24 12:22 | XMS REPORT | Continuity of Care Document ---
:1960 External Reference #:[id number] Author Name Robles Chahal MD, FACS (transmitted by agent of provider Miriam Adam) Address [address] [facility] [place] [address] Care Team Providers Name Role Phone Evita Ewing MD - Hand Surgery Care Team Information Food Selector [phone] Chelsie Huerta MD - Internal Care Team Information Food Selector [phone] Medicine Problems Active Problems Provider Date Chronic hepatitis C Chelsie Huerta M.D. Onset: 03/20/2010 Type 2 diabetes mellitus Chelsie Huerta M.D. Onset: 03/20/2010 Squamous cell carcinoma Keegan Almendarez NP Onset: 12/16/2014 Note: head and neck Depressive disorder Chelsie Huerta M.D. Onset: 01/22/2015 Social History Type Date Description Comments Sex Unknown Tobacco Use Start: Unknown Never Smoked Cigarettes ETOH Use Denies alcohol use Tobacco Use Start: Unknown End: Patient is a former Unknown smoker Recreational Drug Use Denies Drug Use Smoking Status Reviewed: 03/30/19 Patient is a former smoker Exercise Type/Frequency [...] CPT Code Status Date Vaccine Lot # [id number] Given 08/28/2013 Tdap - Tetanus/Diptheria/Acellular Pertussis [id number] Given 07/10/2011 Hepatitis B Vaccine Adult Dosage 72001 Given 07/05/2011 Hepatitis B Vaccine Adult Dosage [id number] Given 12/02/2008 Hepatitis B Vaccine Adult Dosage 88030 Given 08/04/2008 Hepatitis B Vaccine Adult Dosage 44345 Given 08/04/2008 Hepatitis A Vaccine Adult Dosage 02132 Given 04/01/2006 Pneumonia Vaccine 38100 Given 04/01/2006 Pneumonia Vaccine 04495 Given 01/29/2006 Hepatitis A Vaccine Adult Dosage Vital Signs Date Vital Result Comment 03/30/2019 11:48am Height 68 inches 5'8" Weight 190.00 lb Heart Rate 65 /min BP Systolic Sitting 133 mmHg BP Diastolic Sitting 66 mmHg Respiratory Rate 16 /min Body Temperature 97.7 F BMI (Body Mass Index) 28.9 kg/m2 12/20/2017 8:50am Height 68 inches 5'8" Weight 204.50 lb Heart Rate 73 /min BP Systolic 120 mmHg BP Diastolic 66 mmHg Body Temperature 98.1 F O2 % BldC Oximetry 97 % BMI (Body Mass Index) 31.1 kg/m2 Results Test Date Facility Test Result H/L Range Note Laboratory test [facility] PSA Diagnostic 0.060 ng/mL Normal 0-4.000 1 finding 9 [address] [place] [address] [phone] CBC Auto Diff [facility] White Blood 1.6 10^3/uL Low 3.5-10.[address] [place] [address] [phone] Red Blood Count 3.10 10^6/uL Low 4.18-5.48 Hemoglobin 10.8 g/dL Low 14.0-18.0 Hematocrit 29 % Low 42-52 Mean Corpuscular Volume 94 fL Normal 80-94 Mean Corpuscular Hemoglobin 35 pg High 27-31 Mean Corpuscular HGB Conc 37 g/dL High 31-36 Red Cell Distribution Width 15 % Normal 10-15 Platelet Count 23 10^3/uL Low 150-450 2 Mean Platelet Volume 6.4 fL Low 7.4-10.4 [...] % Nucleated Red Blood Cells % 0.1 Comp Metabolic 03/18/2019 [facility] Sodium 137 mmol/L Normal 135-145 Panel [address] [place] [address] [phone] Potassium 3.9 mmol/L Normal 3.5-5.0 Chloride 107 [...] Egfr Non- 137.0 >60 Egfr 165.7 >60 3 Iron & Iron Binding 03/18/2019 [facility] Iron 74 g/dL Normal 50-[address] [place] [address] [phone] Unsaturated Iron Binding < 275 g/dL Total Iron Binding Capacity 290 g/dL Normal 250-450 Transferrin 207 mg/dL Normal 203-362 % Iron Saturation 26 % Normal 15-55 Laboratory test 03/18/2019 [facility] Ferritin 67.2 Normal 24- [address] ng/[place] [address] [phone] CBC Auto Diff 02/26/2019 [facility] White Blood 2.0 Low 3.5- 10.[address] Count 10^3/uL [place], [place] [id number] [phone] Red Blood Count 2.98 10^6/uL Low 4.18-5.48 Hemoglobin 10.5 g/dL Low 14.0-18.0 Hematocrit 28 % Low 42-52 Mean Corpuscular Volume 94 fL Normal 80-94 Mean Corpuscular Hemoglobin 35 pg High 27-31 Mean Corpuscular HGB Conc 38 g/dL High 31-36 Red Cell Distribution Width 15 % Normal 10-15 Platelet Count 18 10^3/uL Low 150-450 4 Mean Platelet Volume 6.5 fL Low 7.4-10.4 [...] % Nucleated Red Blood Cells % 0.0 Stool Occult 02/17/2019 [facility] Stool Occult SEE RESULT 5 Blood, Screen [address] Blood, [place] [address] Screen [phone] Inr/Protime 02/17/2019 [facility] Inr 1.49 High 0.82- [address] 1.09 [place], [place] [id number] [phone] Laboratory test 02/17/2019 [facility] Partial 40.1 seconds High 26.0- finding [address] Thrombo Time 38.0 [place] [address] PTT [phone] Comp Metabolic 02/17/2019 [facility] Sodium 137 mmol/L Normal 135-[address] [place] [address] [phone] Potassium 3.8 mmol/L Normal 3.5-5.0 Chloride 106 [...] Egfr Non- 120.6 >60 Egfr 145.9 >60 7 CBC Auto 02/17/2019 [facility] White Blood 1.5 10^3/uL Low 3.5 -10.[address] [place] [address] [phone] Red Blood Count 3.09 10^6/uL Low 4.18-5.48 [...] Mean Platelet Volume 6.7 fL Low 7.4-10.4 Type & Screen 02/17/2019 [facility] Patient Blood Type AB Positive [address] [place] [address] [phone] Antibody Screen NEGATIVE Laboratory test 02/17/2019 [facility] Pheresis SEE RESULTS [address] Platelets BELO <[place] [address] NOTE> [phone] Pathologist Review (SEE NOTE) 9 Laboratory 12/30/2018 [facility] Cold Agglutinin <1:64 <1:64 [address] Screen/[place] [address] [phone] Comp Metabolic 12/30/2018 [facility] Sodium 136 Normal 135- [address] mmol/[place] [address] [phone] Potassium 4.2 mmol/L Normal 3.5-5.0 Chloride 108 [...] Egfr Non- 129.9 >60 Egfr 157.2 >60 11 Retic Count 12/30/2018 [facility] Retic Count 2.9 % High 0.5- 1.[address] [place] [address] [phone] Mean Retic Volume 114.0 Immature Retic Fraction 0.49 RBC Retic Count 3.42 10^6/uL Low 4.18-5.48 Corrected Retic Count 1.9 % High 0.5-1.5 Maturation Factor Retic 1.5 Retic Index 1.30 Hematocrit for Retic CNT 31 % Low 42-52 CBC Auto 12/30/2018 [facility] Red Blood 3.42 10^6/uL Low 4.18 -5.[address] [place] [address] [phone] White Blood Count 2.2 10^3/uL Low 3.5-10.8 Hemoglobin 11.5 g/dL Low 14.0-18.0 Hematocrit 31 % Low 42-52 Mean Corpuscular Volume 91 fL Normal 80-94 Mean Corpuscular Hemoglobin 34 pg High 27-31 Mean Corpuscular HGB Conc 37 g/dL High 31-36 Red Cell Distribution Width 16 % High 10-15 Platelet Count 22 10^3/uL Low 150-450 12 Mean Platelet Volume 7.4 fL Normal 7.4-10.4 [...] % Nucleated Red Blood Cells % 0.0 Platelet Count 12/09/2018 [facility] Platelet Count 24 10^3/uL Low 150-[address] [place] [address] [phone] Mean Platelet Volume 7.0 fL Low 7.4-10.4 Laboratory test 12/09/2018 [facility] Pheresis SEE RESULTS 14, [address] Platelets BELO <[place] [address] NOTE> [phone] CBC Auto Diff 12/09/2018 [facility] White Blood 2.1 10^3/uL Low 3.5- [address] Count 10.8 [place] [address] [phone] Red Blood Count 3.41 10^6/uL Low 4.18-5.48 [...] 0.2 Platelet Count 19 10^3/uL Low 150-450 16 Mean Platelet Volume 6.5 fL Low 7.4-10.4 CBC Auto 11/10/2018 [facility] White Blood 2.0 10^3/uL Low 3.5 -10.[address] [place] [address] [phone] Red Blood Count 3.41 10^6/uL Low 4.18-5.48 [...] Blood Cells % 0.0 Laboratory test 11/10/2018 [facility] Direct Zain NEGATIVE finding [address] [place] [address] [phone] Afp Tumor Marker 6.4 ng/mL Abnormal <6.0 17 Lyme Screen W/ Reflex To WB Negative Negative Iron & Iron Binding 10/24/2018 [facility] Iron 105 g/dL Normal 50-212 Capacity [address] [place] [address] [phone] Unsaturated Iron Binding < 286 g/dL Total Iron Binding Capacity 301 g/dL Normal 250-450 Transferrin 215 mg/dL Normal 203-362 % Iron Saturation 35 % Normal 15-55 Laboratory test 10/24/2018 [facility] Ferritin 80.6 ng/mL Normal 24-336 finding [address] [place] [address] [phone] Vitamin B12 916 pg/mL High 180-914 18 Retic Count 10/24/2018 [facility] Retic Count 3.1 % High 0.5- 1.5 [address] [place] [address] [phone] Mean Retic Volume 118.0 Immature Retic Fraction 0.56 Corrected Retic Count 2.2 % High 0.5-1.5 Maturation Factor Retic 1.5 Retic Index 1.50 RBC Retic Count 3.45 10^6/uL Low 4.18-5.48 Hematocrit for Retic CNT 32 % Low 36-46 CBC Auto 10/24/2018 [facility] White Blood 2.7 10^3/uL Low 3.5 -10.8 Diff [address] [facility] [place] [address] [phone] Red Blood Count 3.45 10^6/uL Low 4.18-5.48 Hemoglobin 11.7 g/dL Low 14.0-18.0 Hematocrit 32 % Low 36-46 Mean Corpuscular Volume 93 fL Normal 80-94 Mean Corpuscular Hemoglobin 34 pg High 27-31 Mean Corpuscular HGB Conc 36 g/dL Normal 31-36 Red Cell Distribution Width 16 % High 10.5-15 Platelet Count 27 10^3/uL Low 150-450 19 Mean Platelet Volume 6.7 fL Low 7.4-10.4 [...] Red Blood Cells % 0 Protein 10/24/2018 [facility] Total 6.5 g/dL 6.3 - Electrophoresis [address] Protein(Pep) 7.9 [place] [address] [phone] Albumin 3.4 g/dL 3.4-4.7 Alpha-1 Globulin 0.2 g/dL 0.1-0.3 Alpha-2 Globulin 0.7 g/dL 0.6-1.0 Beta Globulin 0.7 g/dL 0.7-1.2 Gamma Globulin 1.5 g/dL 0.6-1.6 Albumin/Globulin Ratio 1.09 Impression See Comment 20 Comp Metabolic 10/09/2018 [facility] Sodium 136 mmol/L Normal 135-[address] [place] [address] [phone] Potassium 4.3 mmol/L Normal 3.5-5.0 Chloride 107 mmol/L Normal 101-111 Co2 Carbon Dioxide 28 mmol/L Normal 22-32 Anion Gap 1 mmol/L Low 2-11 Glucose 183 mg/dL High 70-100 Blood Urea Nitrogen 10 mg/dL Normal 6-24 Creatinine 0.59 mg/dL Low 0.67-1.17 BUN/Creatinine Ratio 16.9 Normal 8-20 Calcium 8.9 mg/dL Normal 8.6-10.3 Total Protein 6.0 g/dL Low 6.4-8.9 Albumin 3.3 g/dL Normal 3.2-5.2 Globulin 2.7 g/dL Normal 2-4 Albumin/Globulin Ratio 1.2 Normal 1-3 Total Bilirubin 1.50 mg/dL High 0.2-1.0 Alkaline Phosphatase 76 U/L Normal 34-104 Alt 73 U/L High 7-52 Ast 109 U/L High 13-39 Egfr Non- 140.1 >60 Egfr 169.6 >60 21 CBC Auto 10/09/2018 [facility] White Blood 1.5 10^3/uL Low 3.5 -10.[address] [place] [address] [phone] Red Blood Count 3.16 10^6/uL Low 4.18-5.48 Hemoglobin 10.6 g/dL Low 14.0-18.0 Hematocrit 30 % Low 36-46 Mean Corpuscular Volume 94 fL Normal 80-94 Mean Corpuscular Hemoglobin 34 pg High 27-31 Mean Corpuscular HGB Conc 36 g/dL Normal 31-36 Red Cell Distribution Width 16 % High 10.5-15 Platelet Count 16 10^3/uL Low 150-450 Mean Platelet Volume 6.7 fL Low 7.4-10.4 Abs Neutrophils 0.9 10^3/uL Low 1.5-7.7 Abs Lymphocytes 0.2 10^3/uL Low 1.0-4.8 Abs Monocytes 0.1 10^3/uL Normal 0-0.8 Abs Eosinophils 0.2 10^3/uL Normal 0-0.6 Abs Basophils 0 10^3/uL Normal 0-0.2 Abs Nucleated RBC 0.01 10^3/uL Granulocyte % 58.5 % Lymphocyte % 16.0 % Monocyte % 8.2 % Eosinophil % 16.4 % Basophil % 0.9 % Nucleated Red Blood Cells % 0.8 Laboratory test 10/09/2018 [facility] Hemoglobin A1c 4.8 % Normal 4.0-5.[address] (Glyco HGB) [place] [address] [phone] Laboratory test 10/09/2018 [facility] PSA Diagnostic 0.303 0- 4.0 [address] ng/[place] [address] [phone] 1 Serum levels of PSA measured using the [employer] DXI Hybritech immunoassay should not be interpreted [...] methods or kits cannot be used interchangeably. 2 Consistent with Previous Results Reported on 02/26/19 3 Because ethnic data is not always readily [...] 15-29 5 Kidney failure <15 (or dialysis) 4 Consistent with Previous Results Reported on 02/17/19 5 SEE RESULT BELOW Name: ROBLES RUSHING : [address]: Diamante Pino MD Acct: [id number] Unit: [id number] AGE: 59 Location: ED Re02/17/19 SEX: M Status: REG ER SPEC: [id number] MAGGI: 02/17/[address] [facility] [address]: Diamante Pino MD REQ: [id number] RECD: 02/18/19 STATUS: LASHANDA NO DR: Chelsie Huerta MD _ SOURCE: STOOL SPDESC: ORDERED: Occult Bl, Scn Procedure Result Reported Site Stool Occult Blood (1) Final 02/18/19- 128 ML Stool Occult Blood Negative * ML - Main Lab . END OF REPORT DEPARTMENT OF PATHOLOGY, [address] [place] [address] Suresh Noonan M.D. Director [facility] # [id number] 6 Standard intensity warfarin therapeutic range: 2.0-3.0 High intensity warfarin therapeutic range: 2.5-3.5 7 Because ethnic data is not always readily [...] 15-29 5 Kidney failure <15 (or dialysis) 8 SEE RESULTS BELOW [id number] OP PHPLT TRANSFUSED 02/18/19 0054 9 Pancytopenia with marked thrombocytopenia. Reviewed by Elisabeth Aceves MD 10 Test Performed by: [address] [address] 11 Because ethnic data is not always readily [...] 15-29 5 Kidney failure <15 (or dialysis) 12 Consistent with Previous Results Reported on 12/09/18 13 Consistent with Previous Results Reported on 12/09/18. 14 LAB 15 SEE RESULTS BELOW [id number] ABP PHPLT TRANSFUSED 12/09/18 1512 16 Platelet count confirmed by estimate 17 AFP values are <6 ng/mL for 95%, [...] method is an immunoenzymatic assay manufactured by [employer]. and performed on the [employer] DxI 800. Values obtained with different assay methods or kits may be different and cannot be used interchangeably. Test results cannot be interpreted as absolute evidence for the presence or absence of malignant disease. Alpha-Fetoprotein values are not interpretable in females for the investigation of malignant disease. Test Performed by: [facility] [employer] [facility] [employer] [facility] [place] [address] 18 Normal Range 180 to 914 Indeterminate Range 145 to 180 Deficient Range <145 19 Consistent with Previous Results Reported on 10/09/18. 20 RESULT: No apparent monoclonal protein on serum electrophoresis. Test Performed by: [facility] [employer] [facility] [employer] [facility] [place] [id number] 21 Because ethnic data is not always readily [...] 15-29 5 Kidney failure <15 (or dialysis) 22 Therapeutic target for the treatment of diabetes mellitus patients is <7% HBA1C, and in selective patients <6.0%. Please refer to [place] Diabetes Association diabetic care guidelines for further information. 23 Serum levels of PSA measured using the [employer] DXI Hybritech immunoassay should not be interpreted [...] methods or kits cannot be used interchangeably. Procedures Date Code Description Status 03/30/2019 65348 Anoscopy Completed 03/30/2019 03789 Hemorrhoidectomy, Internal, By Rubber Band Ligation(S) Completed 12/06/2018 [id number] Diabetic Retinal Eye Exam Completed 04/19/2016 [id number] Diabetic Retinal Eye Exam Completed 11/09/2014 [id number] Diabetic Retinal Eye Exam Completed 12/05/2012 [id number] Diabetic Retinal Eye Exam Completed 12/01/2012 [id number] Diabetic Retinal Eye Exam Completed 02/05/2011 [id number] Diabetic Foot Exam Completed 02/24/2009 [id number] Diabetic Foot Exam Completed 09/02/2008 [id number] Colonoscopy Completed Medical Devices Description No Information Available Encounters Description No Information Available Assessments Date Code Description Provider 03/30/2019 K64.1 Second degree hemorrhoids Robles Chahal MD, FACS 03/30/2019 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 You may see additional bleeding over the course of the next couple days. This is normal. You may also see a small black rubber band in the toilet bowl. If thishappens in the next 2-3 days it would suggest that the banding did not achieve this goal; if it is seen after about a week, this is a good sign.D50.0 Iron deficiency anemia secondary to blood loss (chronic) Functional Status Description No Information Available Mental Status Description No Information Available Referrals Description No Information Available
--- OUTSIDE RECORDS SUMMARY | 2019-05-24 12:22 | XMS REPORT ---
:1960 Author Name Marianne Lan Address [facility] [address] [place] [address] Care Team Providers Name Role Phone Marianne Lan Unavailable Unavailable Valery Hart Unavailable Unavailable Allergies, Adverse Reactions, Alerts Allergy Code CodeSystem Reaction Severity Status Substance RxNorm Medications Medication Medication Medication Start Route Dose Status Fill Code CodeSystem Date Instructions RxNorm NoCurrentDosage No NoCurrentFrequency Longer Active trazodone RxNorm 2019-0 oral 50 mg tablet No for 30 5-07 Longer day(s) Active escitalopram RxNorm 2019-0 oral 10 mg tablet Active for 30 oxalate 5-07 day(s) escitalopram RxNorm 2019-0 oral 20 mg tablet Active for 30 oxalate 5-07 day(s) Hospital Discharge Medications Medication Direction Start Date Status Indications Fill Instuctions No Discharge Medication Problems Problem Name Code CodeSystem Start Date End Date Status SNOMED-CT 2018-09-19 Active Laboratory Values/Results Test Test Code Code System Actual Result Date LOINC Procedures Procedure Name Code CodeSystem Target Site Date of Procedure SNOMED-CT () 2018-10-01 SNOMED-CT () 2018-10-21 SNOMED-CT () 2018-11-04 SNOMED-CT () 2018-11-04 SNOMED-CT () 2019-02-05 SNOMED-CT () 2019-01-29 SNOMED-CT () 2019-01-29 SNOMED-CT () 2019-02-27 SNOMED-CT () 2019-03-05 SNOMED-CT () 2019-03-13 Encounter Diagnosis Code CodeSystem Description Date Finding Finding Status Code 64787 CPT Psychotherapy - 2019-03-01 - Active Individual 30 min 3 SNOMED-CT Vital Signs Vitals Date Value Immunizations Vaccine Name Vaccine Code CodeSystem Date Status Social History Element Description Start Date End Date Code CodeSystem Description SNOMED-CT Hospital Discharge Instructions Reason For Referral
--- OUTSIDE RECORDS SUMMARY | 2019-05-24 12:22 | XMS REPORT | Continuity of Care Document ---
:1960 External Reference #:[id number] Author Name Robles Chahal MD, FACS (transmitted by agent of provider Evita Jensen) Address [address] [place] [address] Care Team Providers Name Role Phone Evita Ewing MD - Hand Surgery Care Team Information [employer] Guide [phone] Chelsie Huerta MD - Internal Care Team Information [employer] Guide [phone] Medicine Problems Active Problems Provider Date Chronic [...] Use Denies Drug Use Smoking Status Reviewed: 04/09/19 Patient is a former smoker Exercise Type/Frequency [...] CPT Code Status Date Vaccine Lot # [id number] Given 08/28/2013 Tdap - Tetanus/Diptheria/Acellular Pertussis [id number] 09233 Given 07/10/2011 Hepatitis B Vaccine Adult Dosage 86494 Given 07/05/2011 Hepatitis B Vaccine Adult Dosage [id number] 45630 Given 12/02/2008 Hepatitis B Vaccine Adult Dosage 05102 Given 08/04/2008 Hepatitis B Vaccine Adult Dosage 06755 Given 08/04/2008 Hepatitis A Vaccine Adult Dosage 29958 Given 04/01/2006 Pneumonia Vaccine 13602 Given 04/01/2006 Pneumonia Vaccine 04207 Given 01/29/2006 Hepatitis A Vaccine Adult Dosage Vital Signs Date Vital Result Comment 04/09/2019 8:46am Heart Rate 84 /min BP Systolic Sitting 150 mmHg BP Diastolic Sitting 70 mmHg Respiratory Rate 16 /min Body Temperature 98.5 F 03/30/2019 11:48am Height 68 inches 5'8" Weight 190.00 lb Heart Rate 65 /min BP Systolic Sitting 133 mmHg BP Diastolic Sitting 66 mmHg Respiratory Rate 16 /min Body Temperature 97.7 F BMI (Body Mass Index) 28.9 kg/m2 Results Test Date Facility Test Result H/L Range Note Platelet Count 04/08/2019 Platelet Count 23 10^3/uL Low 150-[address] [place] [address] [phone] Mean Platelet Volume 6.4 fL Low 7.4-10.4 CBC Auto 04/07/2019 White Blood 2.7 10^3/uL Low 3.5 -10.[address] [place] [address] [phone] Red Blood Count 3.07 10^6/uL Low 4.18-5.48 Hemoglobin 10.6 g/dL Low 14.0-18.0 Hematocrit 29 % Low 42-52 Mean Corpuscular Volume 95 fL High 80-94 Mean Corpuscular Hemoglobin 34 pg High 27-31 Mean Corpuscular HGB Conc 36 g/dL Normal 31-36 Red Cell Distribution Width 17 % High 10-15 Platelet Count 23 10^3/uL Low 150-450 1 Mean Platelet Volume 7.2 fL Low 7.4-10.4 [...] % Nucleated Red Blood Cells % 0.1 Inr/Protime 04/07/2019 Inr 1.31 High 0.82-1.[address] [place] [address] [phone] Laboratory test 04/07/2019 Partial 37.1 Normal 26.0 -38.[address] [place] [address] Time PTT [phone] Type & Screen 04/07/2019 Patient AB Positive [address] [place] [place] [address] [phone] Antibody Screen NEGATIVE Laboratory test 03/18/2019 PSA Diagnostic 0.060 Normal 0-4.000 [address] ng/mL [place], [place] [id number] [phone] CBC Auto Diff 03/18/2019 White Blood 1.6 Low 3.5- 10.[address] Count 10^3/uL [place], [place] [address] [phone] Red Blood Count 3.10 10^6/uL Low 4.18-5.48 Hemoglobin 10.8 g/dL Low 14.0-18.0 Hematocrit 29 % Low 42-52 Mean Corpuscular Volume 94 fL Normal 80-94 Mean Corpuscular Hemoglobin 35 pg High 27-31 Mean Corpuscular HGB Conc 37 g/dL High 31-36 Red Cell Distribution Width 15 % Normal 10-15 Platelet Count 23 10^3/uL Low 150-450 4 Mean Platelet Volume 6.4 fL Low 7.4-10.4 [...] Blood Cells % 0.1 Comp Metabolic 03/18/2019 Sodium 137 mmol/L Normal 135-145 Panel [address] [place] [address] [phone] Potassium 3.9 mmol/L Normal 3.5-5.0 Chloride 107 [...] Non- 137.0 >60 Egfr 165.7 >60 5 Iron & Iron Binding 03/18/2019 Iron 74 g/dL Normal 50-212 Capacity [address] [place] [address] [phone] Unsaturated Iron Binding < 275 g/dL Total Iron Binding Capacity 290 g/dL Normal 250-450 Transferrin 207 mg/dL Normal 203-362 % Iron Saturation 26 % Normal 15-55 Laboratory test 03/18/2019 Ferritin 67.2 Normal 24- [address] ng/mL [place] [id number] [phone] CBC Auto Diff 02/26/2019 White Blood 2.0 Low 3.5- 10.[address] Count 10^3/[place] [address] [phone] Red Blood Count 2.98 10^6/uL Low 4.18-5.48 Hemoglobin 10.5 g/dL Low 14.0-18.0 Hematocrit 28 % Low 42-52 Mean Corpuscular Volume 94 fL Normal 80-94 Mean Corpuscular Hemoglobin 35 pg High 27-31 Mean Corpuscular HGB Conc 38 g/dL High 31-36 Red Cell Distribution Width 15 % Normal 10-15 Platelet Count 18 10^3/uL Low 150-450 6 Mean Platelet Volume 6.5 fL Low 7.4-10.4 [...] Blood Cells % 0.0 Stool Occult 02/17/2019 Stool Occult SEE RESULT 7 Blood, Screen [address] Blood, [place] [address] Screen [phone] Inr/Protime 02/17/2019 Inr 1.49 High 0.82- [address] 1.09 [place] [address] [phone] Laboratory test 02/17/2019 Partial 40.1 seconds High 26.0- finding [address] Thrombo Time 38.0 [place] [address] PTT [phone] Comp Metabolic 02/17/2019 Sodium 137 mmol/L Normal 135-[address] [place] [address] [phone] Potassium 3.8 mmol/L Normal 3.5-5.0 Chloride 106 [...] Egfr Non- 120.6 >60 Egfr 145.9 >60 9 CBC Auto 02/17/2019 White Blood 1.5 10^3/uL Low 3.5 -10.[address] [place] [address] [phone] Red Blood Count 3.09 10^6/uL Low 4.18-5.48 [...] fL Low 7.4-10.4 Type & Screen 02/17/2019 Patient Blood Type AB Positive [address] [place] [address] [phone] Antibody Screen NEGATIVE Laboratory test 02/17/2019 Pheresis SEE RESULTS [address] Platelets BELO <[place] [address] NOTE> [phone] Pathologist Review (SEE NOTE) 11 Laboratory 12/30/2018 Cold Agglutinin <1:64 <1:64 12 test finding [address] Screen/[place] [address] [phone] Comp Metabolic 12/30/2018 Sodium 136 Normal 135- [address] mmol/[place] [address] [phone] Potassium 4.2 mmol/L Normal 3.5-5.0 Chloride 108 [...] Egfr Non- 129.9 >60 Egfr 157.2 >60 13 Retic Count 12/30/2018 Retic Count 2.9 % High 0.5- 1.[address] [place] [address] [phone] Mean Retic Volume 114.0 Immature Retic Fraction 0.49 RBC Retic Count 3.42 10^6/uL Low 4.18-5.48 Corrected Retic Count 1.9 % High 0.5-1.5 Maturation Factor Retic 1.5 Retic Index 1.30 Hematocrit for Retic CNT 31 % Low 42-52 CBC Auto 12/30/2018 Red Blood 3.42 10^6/uL Low 4.18 -5.[address] Count [place], [place] [address] [phone] White Blood Count 2.2 10^3/uL Low 3.5-10.8 Hemoglobin 11.5 g/dL Low 14.0-18.0 Hematocrit 31 % Low 42-52 Mean Corpuscular Volume 91 fL Normal 80-94 Mean Corpuscular Hemoglobin 34 pg High 27-31 Mean Corpuscular HGB Conc 37 g/dL High 31-36 Red Cell Distribution Width 16 % High 10-15 Platelet Count 22 10^3/uL Low 150-450 14 Mean Platelet Volume 7.4 fL Normal 7.4-10.4 [...] Blood Cells % 0.0 Platelet Count 12/09/2018 Platelet Count 24 10^3/uL Low 150-[address] [place] [address] [phone] Mean Platelet Volume 7.0 fL Low 7.4-10.4 Laboratory test 12/09/2018 Pheresis SEE RESULTS 16, [address] Platelets BELO <[place] [address] NOTE> [phone] CBC Auto Diff 12/09/2018 White Blood 2.1 10^3/uL Low 3.5- [address] Count 10.8 [place], [place] [id number] [phone] Red Blood Count 3.41 10^6/uL Low 4.18-5.48 [...] 0.2 Platelet Count 19 10^3/uL Low 150-450 18 Mean Platelet Volume 6.5 fL Low 7.4-10.4 CBC Auto 11/10/2018 White Blood 2.0 10^3/uL Low 3.5 -10.[address] [place] [address] [phone] Red Blood Count 3.41 10^6/uL Low 4.18-5.48 [...] Blood Cells % 0.0 Laboratory test 11/10/2018 Direct Zain NEGATIVE finding [address] [place] [address] [phone] Afp Tumor Marker 6.4 ng/mL Abnormal <6.0 19 Lyme Screen W/ Reflex To WB Negative Negative Iron & Iron Binding 10/24/2018 Iron 105 g/dL Normal 50-212 Capacity [address] [place] [address] [phone] Unsaturated Iron Binding < 286 g/dL Total Iron Binding Capacity 301 g/dL Normal 250-450 Transferrin 215 mg/dL Normal 203-362 % Iron Saturation 35 % Normal 15-55 Laboratory test 10/24/2018 Ferritin 80.6 ng/mL Normal 24-336 finding [address] [place] [address] [phone] Vitamin B12 916 pg/mL High 180-914 20 Retic Count 10/24/2018 Retic Count 3.1 % High 0.5- 1.5 [address] [place] [address] [phone] Mean Retic Volume 118.0 Immature Retic Fraction 0.56 Corrected Retic Count 2.2 % High 0.5-1.5 Maturation Factor Retic 1.5 Retic Index 1.50 RBC Retic Count 3.45 10^6/uL Low 4.18-5.48 Hematocrit for Retic CNT 32 % Low 36-46 CBC Auto 10/24/2018 White Blood 2.7 10^3/uL Low 3.5 -10.8 Diff [address] [place] [address] [phone] Red Blood Count 3.45 10^6/uL Low 4.18-5.48 Hemoglobin 11.7 g/dL Low 14.0-18.0 Hematocrit 32 % Low 36-46 Mean Corpuscular Volume 93 fL Normal 80-94 Mean Corpuscular Hemoglobin 34 pg High 27-31 Mean Corpuscular HGB Conc 36 g/dL Normal 31-36 Red Cell Distribution Width 16 % High 10.5-15 Platelet Count 27 10^3/uL Low 150-450 21 Mean Platelet Volume 6.7 fL Low 7.4-10.4 [...] Red Blood Cells % 0 Protein 10/24/2018 Total 6.5 g/dL 6.3 - Electrophoresis [address] Protein(Pep) 7.9 [place] [address] [phone] Albumin 3.4 g/dL 3.4-4.7 Alpha-1 Globulin 0.2 g/dL 0.1-0.3 Alpha-2 Globulin 0.7 g/dL 0.6-1.0 Beta Globulin 0.7 g/dL 0.7-1.2 Gamma Globulin 1.5 g/dL 0.6-1.6 Albumin/Globulin Ratio 1.09 Impression See Comment 22 Comp Metabolic 10/09/2018 Sodium 136 mmol/L Normal 135-[address] [place] [address] [phone] Potassium 4.3 mmol/L Normal 3.5-5.0 Chloride 107 [...] Egfr Non- 140.1 >60 Egfr 169.6 >60 23 CBC Auto 10/09/2018 White Blood 1.5 10^3/uL Low 3.5 -10.[address] [place] [address] [phone] Red Blood Count 3.16 10^6/uL Low 4.18-5.48 [...] Blood Cells % 0.8 Laboratory test 10/09/2018 Hemoglobin A1c 4.8 % Normal 4.0-5.[address] (Glyco HGB) [place] [address] [phone] Laboratory test 10/09/2018 PSA Diagnostic 0.303 0- 4.0 [address] ng/[place] [address] [phone] 1 Consistent with Previous Results Reported on 03/18/19. 2 Standard intensity warfarin therapeutic range: 2.0-3.0 High intensity warfarin therapeutic range: 2.5-3.5 3 Serum levels of PSA measured using the [employer] DXI Hybritech immunoassay should not be interpreted [...] methods or kits cannot be used interchangeably. 4 Consistent with Previous Results Reported on 02/26/19 5 Because ethnic data is not always [...] 6 Consistent with Previous Results Reported on 02/17/19 7 SEE RESULT BELOW Name: ROBLES RUSHING : [address]: Diamante Pino MD Acct: [id number] Unit: [id number] AGE: 59 Location: ED Re02/17/19 SEX: M Status: REG ER SPEC: [id number] MAGGI: 02/17/[address] [facility] [address]: Diamante Pino MD REQ: [id number] RECD: 02/18/19 STATUS: LASHANDA NO DR: Chelsie Huerta MD _ SOURCE: STOOL SPDESC: ORDERED: Occult Bl, Scn Procedure Result Reported Site Stool Occult Blood (1) Final 02/18/19- 128 ML Stool Occult Blood Negative * ML - Main Lab . END OF REPORT DEPARTMENT OF PATHOLOGY, [address] [place] [address] Suresh Noonan M.D. Director [facility] # [id number] 8 Standard intensity warfarin therapeutic range: 2.0-3.0 High intensity warfarin therapeutic range: 2.5-3.5 9 Because ethnic data is not always readily [...] 15-29 5 Kidney failure <15 (or dialysis) 10 SEE RESULTS BELOW [id number] OP PHPLT TRANSFUSED 02/18/19 0054 11 Pancytopenia with marked thrombocytopenia. Reviewed by Elisabeth Aceves MD 12 Test Performed by: [place] [address] 13 Because ethnic data is not always readily [...] 15-29 5 Kidney failure <15 (or dialysis) 14 Consistent with Previous Results Reported on 12/09/18 15 Consistent with Previous Results Reported on 12/09/18. 16 LAB 17 SEE RESULTS BELOW [id number] ABP PHPLT TRANSFUSED 12/09/18 1512 18 Platelet count confirmed by estimate 19 AFP values are <6 ng/mL for 95%, [...] method is an immunoenzymatic assay manufactured by [employer]. and performed on the [employer] DxI 800. Values obtained with different assay methods or kits may be different and cannot be used interchangeably. Test results cannot be interpreted as absolute evidence for the presence or absence of malignant disease. Alpha-Fetoprotein values are not interpretable in females for the investigation of malignant disease. Test Performed by: [facility] [employer] [facility] [place] [employer] [facility] [place] [address] 20 Normal Range 180 to 914 Indeterminate Range 145 to 180 Deficient Range <145 21 Consistent with Previous Results Reported on 10/09/18. 22 RESULT: No apparent monoclonal protein on serum electrophoresis. Test Performed by: [facility] [employer] [facility] [employer] [facility] [place] [address] 23 Because ethnic data is not always readily [...] 15-29 5 Kidney failure <15 (or dialysis) 24 Therapeutic target for the treatment of diabetes mellitus patients is <7% HBA1C, and in selective patients <6.0%. Please refer to [place] [employer] diabetic care guidelines for further information. 25 Serum levels of PSA measured using the [employer] DXI Hybritech immunoassay should not be interpreted [...] used interchangeably. Procedures Date Code Description Status 04/09/2019 49799 Anoscopy Completed 03/30/2019 17625 Hemorrhoidectomy, Internal, By Rubber Band Ligation(S) Completed 12/06/2018 [id number] Diabetic Retinal Eye Exam Completed 04/19/2016 [id number] Diabetic Retinal Eye Exam Completed 11/09/2014 [id number] Diabetic Retinal Eye Exam Completed 12/05/2012 [id number] Diabetic Retinal Eye Exam Completed 12/01/2012 [id number] Diabetic Retinal Eye Exam Completed 02/05/2011 [id number] Diabetic Foot Exam Completed 02/24/2009 [id number] Diabetic Foot Exam Completed 09/02/2008 [id number] Colonoscopy Completed Medical Devices Description No Information Available Encounters Type Date Location Provider Dx Diagnosis Office Visit 03/30/2019 Surgical Robles Chahal, K64.1 Second degree 11:[facility] [place] hemorrhoids D50.0 Iron deficiency anemia secondary to blood loss (chronic) Assessments Date Code Description Provider 04/09/2019 K64.1 Second degree hemorrhoids Robles Chahal MD, FACS 04/09/2019 D50.0 Iron deficiency anemia secondary to blood Robles Chahal MD, FACS loss (chronic) 04/09/2019 K92.1 Melena Robles Chahal MD, FACS 03/30/2019 K64.1 Second degree hemorrhoids Robles Chahal MD, FACS 03/30/2019 D50.0 Iron deficiency anemia secondary to blood Robles Chahal MD, FACS loss (chronic) Plan of Treatment Future Appointment(s):04/14/2019 10:15 am - Robles Chahal MD, FACS at [facility]04/09/2019 - Robles Chahal MD, FACSK64.1 Second degree ifjigkqzakkM88.0 Iron deficiency anemia secondary to blood loss (chronic) K92.1 MelenaFollow up:after bleeding scan Functional Status Description No Information Available Mental Status Description No Information Available Referrals Description No Information Available
[2019-05-24 14:12] LABS: Troponin I 0.03 ng/mL (<0.03)
[2019-05-24] MEDS ORDERED: Morphine 4 MG/ML VIAL (1 ml) 4 MG/ML VIAL IV ONE ×2 (16:00→18:41)
[2019-05-24 18:21] VITALS: BP 136/68
== END 2019-05-24 18:46 | disposition short-term general hospital (02) ==
LOC: ED 11:09
DX: I50.9 Heart failure, unspecified (principal); E80.6 Other disorders of bilirubin metabolism; E72.20 Disorder of urea cycle metabolism, unspecified; K74.60 Unspecified cirrhosis of liver; I51.7 Cardiomegaly; E87.70 Fluid overload, unspecified; R09.02 Hypoxemia; F31.9 Bipolar disorder, unspecified; Z85.46 Personal history of malignant neoplasm of prostate; Z85.89 Personal history of malignant neoplasm of other organs and systems; Z87.891 Personal history of nicotine dependence; Z86.19 Personal history of other infectious and parasitic diseases; Z79.899 Other long term (current) drug therapy
CPT/HCPCS: 36415; 71275; 74174; 80053; 82140; 83605; 83690; 83880; 84484; 85025; 85610; 93005; 96374; 96376; 99285; J2270; Q9967

== ENCOUNTER 2019-06-13 05:47 | Emergency (ER) | payer MEDICARE ==
--- OUTSIDE RECORDS SUMMARY | 2019-06-13 06:39 | XMS REPORT ---
:1960 Author Organization [facility] Care Team Providers Name Role Phone Unavailable Unavailable Unavailable Problems Condition Condition Condition Status Onset Resolution Last Treating Comments Name Details Category Date Date Treatment Clinician Date Safety risk for Safety Resolved 2018-072019-06-04 [facility] 2-03 10:25:00 Wheeler tion 10:30: 00 Allergies, Adverse Reactions, Alerts Allergy Allergy Status Severity Reaction(s) Onset Inactive Treating Comments Name Type Date Date Clinician Unknown None Active Unknown None Unknown No Known Allergies For This Patient Medications Ordered Filled Start Stop Current Ordering Indication Dosage Frequency Signature Comments Components Medication Medication Date Date Medication? Clinician (SIG) Name Name furosemide furosemide 2018-07- Yes Cotton Unknown Unknown 40 mg 40 mg 07-30 MDElisabe tablet tablet th potassium potassium 2018-07- Yes Cotton Unknown Unknown chloride ER chloride ER 07-30 Marquis ROCK 10 mEq 10 mEq th capsule,ext capsule,ext ended ended release release amLODIPine amLODIPine 2018-07- Yes Cotton Unknown Unknown 10 mg 10 mg 07-30 MDElisabe tablet tablet th escitalopra escitalopra 2018-07- Yes Cotton Unknown Unknown m 20 mg m 20 mg 07-30 MDElisabe tablet tablet th hydrOXYzine hydrOXYzine 2018-07- Yes Cotton Unknown Unknown HCl 25 mg HCl 25 mg 07-30 ,Elisabe tablet tablet th lactulose lactulose 2018-07- Yes Cotton Unknown Unknown 10 gram/15 10 gram/15 07-30 Marquis ROCK mL (15 mL) mL (15 mL) th oral oral solution solution pantoprazol pantoprazol 2018-07- Yes Cotton Unknown Unknown e 40 mg e 40 mg 07-30 Marquis ROCK tablet,blane tablet,blane th yed release yed release inderal 20 inderal 20 2018-07- Yes Cotton Unknown Unknown mg mg 07-30 Marquis ROCK th traZODone traZODone 2018-07 2019- Yes Cotton Unknown Unknown 50 mg 50 mg 07-30 Marquis ROCK tablet tablet th Vital Signs Vital Name Observation Time Observation Value Comments SYSTOLIC mm[Hg] 2019-06-04 18:09:12 114 mm[Hg] mm[Hg] Method: Sit SYSTOLIC mm[Hg] 2019-06-04 18:09:12 130 mm[Hg] mm[Hg] Method: Stand DIASTOLIC mm[Hg] 2019-06-04 18:09:12 70 mm[Hg] mm[Hg] Method: Sit DIASTOLIC mm[Hg] 2019-06-04 18:09:12 72 mm[Hg] mm[Hg] Method: Stand PULSE 2019-06-04 18:09:12 53 /min /min RESP RATE 2019-06-04 18:09:12 18 /min /min TEMP 2019-06-04 18:09:12 98.5 [degF] Procedures This patient has no known procedures. Results This patient has no known results.
--- OUTSIDE RECORDS SUMMARY | 2019-06-13 06:39 | XMS REPORT ---
:1960 Author Organization [facility] Care Team Providers Name Role Phone Unavailable Unavailable Unavailable Problems This patient has no known problems. Allergies, Adverse Reactions, Alerts Allergy Allergy Status Severity Reaction(s) Onset Inactive Treating Comments Name Type Date Date Clinician Unknown None Active Unknown None Unknown No Known Allergies For This Patient Medications Ordered Filled Start Stop Current Ordering Indication Dosage Frequency Signature Comments Components Medication Medication Date Date Medication? Clinician (SIG) Name Name furosemide furosemide 2018-07 Yes Cotton Unknown Unknown 40 mg 40 mg 1-30 MD,Elisabe tablet tablet th potassium potassium 2018-07 Yes Cotton Unknown Unknown chloride ER chloride ER -30 ,Elisabe 10 mEq 10 mEq th capsule,ext capsule,ext ended ended release release amLODIPine amLODIPine 2018-07 Yes Cotton Unknown Unknown 10 mg 10 mg -30 MD,Elisabe tablet tablet th escitalopra escitalopra 2018-07 Yes Cotton Unknown Unknown m 20 mg m 20 mg -30 MD,Elisabe tablet tablet th hydrOXYzine hydrOXYzine 2018-07 Yes Cotton Unknown Unknown HCl 25 mg HCl 25 mg -30 MD,Elisabe tablet tablet th lactulose lactulose 2018-07 Yes Cotton Unknown Unknown 10 gram/15 10 gram/15 -30 ,Elisabe mL (15 mL) mL (15 mL) th oral oral solution solution pantoprazol pantoprazol 2018-07 Yes Cotton Unknown Unknown e 40 mg e 40 mg 1-30 MD,Elisabe tablet,blane tablet,blane th yed release yed release inderal 20 inderal 20 2018-07 Yes Cotton Unknown Unknown mg mg 1-30 MD,Elisabe th traZODone traZODone 2018-07 Yes Cotton Unknown Unknown 50 mg 50 mg 1-30 MD,Elisabe tablet tablet th Procedures This patient has no known procedures. Results This patient has no known results.
--- OUTSIDE RECORDS SUMMARY | 2019-06-13 06:39 | XMS REPORT ---
:1960 Author Organization [facility] Care Team Providers Name Role Phone Unavailable Unavailable Unavailable Problems Condition Condition Condition Status Onset Resolution Last Treating Comments Name Details Category Date Date Treatment Clinician Date Safety risk for Safety Active 2018-07 [facility] [address] ion 10:30: 00 Allergies, Adverse Reactions, Alerts Allergy [...] Cotton Unknown Unknown 40 mg 40 mg -30 ,Elisabe tablet tablet th potassium potassium 2018-07 Yes Cotton Unknown Unknown chloride ER chloride ER 30 MDElisabe 10 mEq 10 mEq th capsule,ext capsule,ext ended ended release release amLODIPine amLODIPine 2018-07 Yes Cotton Unknown Unknown 10 mg 10 mg -30 ,Elisabe tablet tablet th escitalopra escitalopra 2018-07 Yes Cotton Unknown Unknown m 20 mg m 20 mg 30 ,Elisabe tablet tablet th hydrOXYzine hydrOXYzine 2018-07 Yes Cotton Unknown Unknown HCl 25 mg HCl 25 mg 30 ,Elisabe tablet tablet th lactulose lactulose 2018-07 Yes Cotton Unknown Unknown 10 gram/15 10 gram/15 -30 MDElisabe mL (15 mL) mL (15 mL) th oral oral solution solution pantoprazol pantoprazol 2018-07 Yes Cotton Unknown Unknown e 40 mg e 40 mg 1-30 MDElisabe tablet,blane tablet,blane th yed release yed release inderal 20 inderal 20 2018-07 Yes Cotton Unknown Unknown mg mg -30 MDElisabe th traZODone traZODone 2018-07 Yes Cotton Unknown Unknown 50 mg 50 mg -30 ,Elisabe tablet tablet th Vital Signs Vital Name Observation Time Observation Value Comments SYSTOLIC mm[Hg] 2019-06-02 18:09:10 120 mm[Hg] mm[Hg] Method: Sit DIASTOLIC mm[Hg] 2019-06-02 18:09:10 70 mm[Hg] mm[Hg] Method: Sit PULSE 2019-06-02 18:09:10 60 /min /min RESP RATE 2019-06-02 18:09:10 18 /min /min TEMP 2019-06-02 18:09:10 97.1 [degF] Procedures This patient has no known procedures. Results This patient has no known results.
--- OUTSIDE RECORDS SUMMARY | 2019-06-13 06:39 | XMS REPORT ---
:1960 Author Organization [facility] Care Team Providers Name Role Phone Unavailable Unavailable Unavailable Problems Condition Condition Condition Status Onset Resolution Last Treating Comments Name Details Category Date Date Treatment Clinician Date Safety risk for Safety Active 2018-07 [facility] [address] ion 10:30: 00 Allergies, [...]
--- OUTSIDE RECORDS SUMMARY | 2019-06-13 06:39 | XMS REPORT ---
:1960 Author Organization [facility] Care Team Providers Name Role Phone Unavailable [...] Date Date Medication? Clinician (SIG) Name Name No Known No Known No None None None Medications Medications For This For This Patient Patient Procedures This patient has no known procedures. Results This patient has no known results.
--- OUTSIDE RECORDS SUMMARY | 2019-06-13 06:39 | XMS REPORT ---
:1960 Author Organization [facility] Care Team Providers Name Role Phone Unavailable Unavailable Unavailable Problems Condition Condition Condition Status Onset Resolution Last Treating Comments Name Details Category Date Date Treatment Clinician Date Safety risk for Safety Resolved 2018-072019-06-04 [facility] 2-03 10:25:00 Wheeler tion 10:30: 00 Allergies, [...]
--- OUTSIDE RECORDS SUMMARY | 2019-06-13 06:39 | XMS REPORT ---
:1960 Author Organization [facility] Care Team Providers Name Role Phone Unavailable [...]
--- OUTSIDE RECORDS SUMMARY | 2019-06-13 06:39 | XMS REPORT | Summary of Care ---
:1960 Author Organization [facility] Address [address] [place] [address] Care Team Providers Name Role Phone Chelsie Huerta MD Primary Care Provider Encounter Details Date Type Department Care Team Description 05/14/2019 Hospital Encounter [address] [id number] Allergies No Known Allergiesdocumented as of this encounter (statuses as of 05/29/2019) Medications Medication Sig Dispensed Refills Start Date End Date Status escitalopram (LEXAPRO) Take 20 mg by 0 Active 10 MG tablet mouth daily. atomoxetine (STRATTERA) Take 10 mg by 0 Active 10 MG capsule mouth daily. levothyroxine Take 50 mcg by 0 Active (SYNTHROID, LEVOTHROID) mouth every 50 MCG tablet morning before breakfast. tramadol (ULTRAM) 50 MG Take 50 mg by 0 Active tablet mouth every 6 (six) hours as needed for Pain. pilocarpine (PILOCAR) 1 1 drop Four times 0 Active % ophthalmic solution daily. documented as of this encounter (statuses as of 05/29/2019) Active Problems Problem Noted Date Balance disorder 11/08/2014 Whiplash 10/11/2014 Balance problems 10/11/2014 Visual changes 10/11/2014 Post-traumatic headache 10/11/2014 Concussion 10/11/2014 documented as of this encounter (statuses as of 05/29/2019) Social History Tobacco Use Types Packs/Day Years Used Date Never Smoker Alcohol Use Drinks/Week oz/Week Comments No Sex Assigned at Date Recorded Not on file Job Start Date Occupation Industry Not on file Not on file Not on file Travel History Travel Start Travel End No recent travel history available. documented as of this encounter Last Filed Vital Signs Not on filedocumented in this encounter Plan of Treatment Health Maintenance Due Date Last Done Comments Hepatitis C Screening (B. 1960 [id number]) MMR Vaccines (1 of 1 - Standard 1959 series) DTaP,Tdap,and Td Vaccines (1 - 1965 Tdap) HIV Screening 1971 Colon Cancer Screening 10 yrs 02/08/2008 Zoster Vaccines (1 of 2) 02/08/2008 Influenza Vaccine 03/31/2019 Pneumococcal Vaccine: 65+ Years (1 2023 of 2 - PCV13) HIB Vaccines Aged Out No longer eligible based on patient's age to complete this topic Hepatitis A Vaccines Aged Out No longer eligible based on patient's age to complete this topic Hepatitis B Vaccines Aged Out No longer eligible based on patient's age to complete this topic IPV Vaccines Aged Out No longer eligible based on patient's age to complete this topic Pneumococcal Vaccine: Pediatrics Aged Out No longer eligible based on (0 to 5 Years) and At-Risk patient's age to complete this Patients (6 to 64 Years) topic Varicella Vaccines Aged Out No longer eligible based on patient's age to complete this topic documented as of this encounter Results Not on filedocumented in this encounter
--- OUTSIDE RECORDS SUMMARY | 2019-06-13 06:39 | XMS REPORT ---
:1960 Author Organization [facility] Care Team Providers Name Role Phone Unavailable Unavailable Unavailable Problems Condition Condition Condition Status Onset Resolution Last Treating Comments Name Details Category Date Date Treatment Clinician Date Safety risk for Safety Resolved 2018-072019-06-04 [facility] 2-03 10:25:00 [place] tion 10:30: 00 Allergies, [...]
--- OUTSIDE RECORDS SUMMARY | 2019-06-13 06:39 | XMS REPORT | Continuity of Care Document ---
:1960 External Reference #:[id number] Author Name Keegan Almendarez NP (transmitted by agent of provider Goldie Peoples) Address [address], [place] [address] Care Team Providers Name Role Phone Evita Ewing MD - Hand Surgery Care Team Information Operator Engineer [phone] Chelsie Huerta MD - Internal Care Team Information Operator Engineer [phone] Medicine Problems Active Problems Provider Date Chronic [...] Use Denies Drug Use Smoking Status Reviewed: 05/29/19 Patient is a former smoker Exercise Type/Frequency Exercises sporadically Playing golf 2-3 x/week Allergies, Adverse Reactions, Alerts Active Allergies Reaction Severity Comments Date NKDA 08/18/2014 Inactive Allergies Flu Virus Vaccine h/a & vomiting Moderate 03/20/2010 Medications Active Medications SIG Qnty Indications Ordering Date Provider Furosemide 1 by mouth every 30tabs Keegan Almendarez NP 05/29/2019 40mg Tablets day Syringe For use with 2units Keegan Almendarez NP 05/29/2019 30ml Misc lactulose Hydroxyzine HCL 1/2-2 tablets by 30tabs Keegan Almendarez NP 05/29/2019 25mg mouth every 8 Tablets hours as needed for anxiety Heating Pad Dry Heat use on neck 20 1units 847.0 Keegan Almendarez NP 08/31/2014 minutes every few Pads hours. Lidocaine Viscous gargle with 15ml Unknown 2% every 4 hours as Solution needed Levothyroxine Sodium 1 by mouth every Unknown day 25mcg Tablets Escitalopram Oxalate 1 1/2 tab (30mg) Unknown 20mg by mouth every Tablets day Amlodipine Besylate 2 by mouth every Unknown 5mg day Tablets Lactulose 15ml PO twice Unknown 10GM/15ML daily Solution Pantoprazole Sodium 1 by mouth every Unknown 40mg day Tablets DR Potassium Chloride ER 1 by mouth every Unknown day 10Meq Tablets ER Propranolol HCL 1 by mouth twice Unknown 20mg a day Tablets Trazodone HCL 1-2 tablets at Unknown 50mg bedtime as Tablets needed. Medications Administered in Office Medication SIG Qnty Indications Ordering Provider Date PPD Nurse Visit A 08/28/2013 Injection CHRISTIAN Smart, 09/05/2012 Injection N.P. Immunizations CPT Code Status Date Vaccine Lot # [id number] Given 08/28/2013 Tdap - Tetanus/Diptheria/Acellular Pertussis [id number] Given 07/10/2011 Hepatitis B Vaccine Adult Dosage 39529 Given 07/05/2011 Hepatitis B Vaccine Adult Dosage [id number] Given 12/02/2008 Hepatitis B Vaccine Adult Dosage 70608 Given 08/04/2008 Hepatitis B Vaccine Adult Dosage 12074 Given 08/04/2008 Hepatitis A Vaccine Adult Dosage 98944 Given 04/01/2006 Pneumonia Vaccine 05578 Given 04/01/2006 Pneumonia Vaccine 90524 Given 01/29/2006 Hepatitis A Vaccine Adult Dosage Vital Signs Date Vital Result Comment 05/29/2019 10:26am Height 69 inches 5'9" Weight 181.00 lb Heart Rate 50 /min BP Systolic Sitting 106 mmHg BP Diastolic Sitting 72 mmHg Body Temperature 97.0 F O2 % BldC Oximetry 96 % BMI (Body Mass Index) 26.7 kg/m2 04/14/2019 10:24am Heart Rate 72 /min BP Systolic 156 mmHg BP Diastolic 80 mmHg Respiratory Rate 18 /min Body Temperature 98.0 F Results Test Acquired Facility Test Result H/L Range Note Date Laboratory 05/24/2019 [facility] Troponin-I 0.03 ng/mL Critical <0.[address] (TnI) [place] [address] [phone] Inr/Protime 05/24/2019 [facility] Inr 2.18 High 0.82-1.[address] [place] [address] [phone] Laboratory 05/24/2019 [facility] Ammonia 94 mcmol/L High 16- [address] [place] [address] [phone] Lactic Acid 1.4 mmol/L Normal 0.5-2.0 3 CBC Auto 05/24/2019 [facility] White Blood 3.8 10^3/uL Normal 3.5-10.[address] [place] [address] [phone] Red Blood Count 2.94 10^6/uL Low 4.18-5.48 Hemoglobin 9.6 g/dL Low 14.0-18.0 Hematocrit 27 % Low 42-52 Mean Corpuscular Volume 91 fL Normal 80-94 Mean Corpuscular Hemoglobin 33 pg High 27-31 Mean Corpuscular HGB Conc 36 g/dL Normal 31-36 Red Cell Distribution Width 16 % High 10-15 Platelet Count 37 10^3/uL Low 150-450 4 Mean Platelet Volume 6.3 fL Low 7.4-10.4 Abs Neutrophils 2.6 10^3/uL Normal 1.5-7.7 Abs Lymphocytes 0.4 10^3/uL Low 1.0-4.8 Abs Monocytes 0.5 10^3/uL Normal 0-0.8 Abs Eosinophils 0.2 10^3/uL Normal 0-0.6 Abs Basophils 0.0 10^3/uL Normal 0-0.2 Abs Nucleated RBC 0.0 10^3/uL Granulocyte % 69.7 % Lymphocyte % 11.2 % Monocyte % 12.2 % Eosinophil % 6.2 % Basophil % 0.7 % Nucleated Red Blood Cells % 0.2 Comp Metabolic 05/24/2019 [facility] Sodium 135 mmol/L Normal 135-[address] [place] [address] [phone] Potassium 4.1 mmol/L Normal 3.5-5.0 Chloride 104 mmol/L Normal 101-111 Co2 Carbon Dioxide 29 mmol/L Normal 22-32 Anion Gap 2 mmol/L Normal 2-11 Calcium 8.6 mg/dL Normal 8.6-10.3 Albumin 3.5 g/dL Normal 3.2-5.2 Total Bilirubin 6.00 mg/dL High 0.2-1.0 Glucose 141 mg/dL High 70-100 Blood Urea Nitrogen 16 mg/dL Normal 6-24 Creatinine 0.66 mg/dL Low 0.67-1.17 BUN/Creatinine Ratio 24.2 High 8-20 Total Protein 6.0 g/dL Low 6.4-8.9 Globulin 2.5 g/dL Normal 2-4 Albumin/Globulin Ratio 1.4 Normal 1-3 Alkaline Phosphatase 58 U/L Normal 34-104 Alt 36 U/L Normal 7-52 Ast 72 U/L High 13-39 Egfr Non- 122.7 >60 Egfr 148.5 >60 5 Laboratory test 05/24/2019 [facility] Lipase 26 U/L Normal 11.0-82.[address] [place] [address] [phone] Troponin-I (TnI) 0.03 ng/mL Critical high <0.03 6 B-Type Natriuretic Peptide BNP 421 pg/mL High <=100 Laboratory test 05/13/2019 [facility] Pheresis SEE RESULTS 7, [address] Platelets BELO <[place] [address] NOTE> [phone] Laboratory test 05/13/2019 [facility] Ammonia 115 mcmol/L High 16-[address] [place] [address] [phone] Comp Metabolic 05/13/2019 [facility] Sodium 138 mmol/L Normal 135- Panel [address] [place] [address] [phone] Potassium 3.9 mmol/L Normal 3.5-5.0 Chloride 108 mmol/L Normal 101-111 Co2 Carbon Dioxide 25 mmol/L Normal 22-32 Anion Gap 5 mmol/L Normal 2-11 Glucose 148 mg/dL High 70-100 Blood Urea Nitrogen 11 mg/dL Normal 6-24 Creatinine 0.74 mg/dL Normal 0.67-1.17 BUN/Creatinine Ratio 14.9 Normal 8-20 Calcium 8.6 mg/dL Normal 8.6-10.3 Total Protein 5.2 g/dL Low 6.4-8.9 Albumin 3.1 g/dL Low 3.2-5.2 Globulin 2.1 g/dL Normal 2-4 Albumin/Globulin Ratio 1.5 Normal 1-3 Total Bilirubin 1.30 mg/dL High 0.2-1.0 Alkaline Phosphatase 54 U/L Normal 34-104 Alt 27 U/L Normal 7-52 Ast 37 U/L Normal 13-39 Egfr Non- 107.5 >60 Egfr 130.1 >60 9 Inr/Protime 05/13/2019 [facility] Inr 1.60 High 0.82-1.[address] [place] [address] [phone] Laboratory test 05/13/2019 [facility] Partial 40.8 High 26.0- 38.[address] [place] [address] Time PTT [phone] CBC Auto Diff 05/13/2019 [facility] White Blood 1.2 10^3/uL Low 3.5-10.[address] [place] [address] [phone] Red Blood Count 2.38 10^6/uL Low 4.18-5.48 Hemoglobin 8.2 g/dL Low 14.0-18.0 Hematocrit 23 % Low 42-52 Mean Corpuscular Volume 95 fL High 80-94 Mean Corpuscular Hemoglobin 35 pg High 27-31 Mean Corpuscular HGB Conc 36 g/dL Normal 31-36 Red Cell Distribution Width 15 % Normal 10-15 Platelet Count 17 10^3/uL Critical low 150-450 11 Mean Platelet Volume 6.6 fL Low 7.4-10.4 Abs Neutrophils 0.7 10^3/uL Critical low 1.5-7.7 12 Abs Lymphocytes 0.3 10^3/uL Low 1.0-4.8 Abs Monocytes 0.1 10^3/uL Normal 0-0.8 Abs Eosinophils 0.2 10^3/uL Normal 0-0.6 Abs Basophils 0.0 10^3/uL Normal 0-0.2 Abs Nucleated RBC 0.0 10^3/uL Granulocyte % 54.5 % Lymphocyte % 22.8 % Monocyte % 8.7 % Eosinophil % 13.1 % Basophil % 0.9 % Nucleated Red Blood Cells % 0.1 Type & Screen 05/13/2019 [facility] Patient Blood Type AB Positive [address] [place] [address] [phone] Antibody Screen NEGATIVE Platelet Count 04/08/2019 [facility] Platelet Count 23 10^3/uL Low 150-[address] [place], [place] [address] [phone] Mean Platelet Volume 6.4 fL Low 7.4-10.4 Laboratory test 04/07/2019 [facility] Platelet Pheresis SEE RESULTS [address] Leukoreduced BELO <[place] [address] NOTE> [phone] Type & Screen 04/07/2019 [facility] Patient Blood Type AB Positive [address] [place] [address] [phone] Antibody Screen NEGATIVE CBC Auto 04/07/2019 [facility] White Blood 2.7 10^3/uL Low 3.5 -10.[address] [place] [address] [phone] Red Blood Count 3.07 10^6/uL Low 4.18-5.48 Hemoglobin 10.6 g/dL Low 14.0-18.0 Hematocrit 29 % Low 42-52 Mean Corpuscular Volume 95 fL High 80-94 Mean Corpuscular Hemoglobin 34 pg High 27-31 Mean Corpuscular HGB Conc 36 g/dL Normal 31-36 Red Cell Distribution Width 17 % High 10-15 Platelet Count 23 10^3/uL Low 150-450 14 Mean Platelet Volume 7.2 fL Low 7.4-10.4 [...] Red Blood Cells % 0.1 Laboratory 04/07/2019 [facility] Partial 37.1 Normal 26.0- 38.0 test finding [address] [address] PTT [phone] Inr/Protime 04/07/2019 [facility] Inr 1.31 High 0.82-1.[address] [place] [address] [phone] Laboratory 03/18/2019 [facility] Ferritin 67.2 ng/mL Normal 24 -336 test finding [address] [place] [address] [phone] Iron & Iron 03/18/2019 [facility] Iron 74 g/dL Normal 50- [address] [place] [address] [phone] Unsaturated Iron Binding < 275 g/dL Total Iron Binding Capacity 290 g/dL Normal 250-450 Transferrin 207 mg/dL Normal 203-362 % Iron Saturation 26 % Normal 15-55 Laboratory test 03/18/2019 [facility] PSA Diagnostic 0.060 Normal 0-4.000 [address] ng/[place] [address] [phone] Comp Metabolic 03/18/2019 [facility] Sodium 137 Normal 135- [address] mmol/[place] [address] [phone] Potassium 3.9 mmol/L Normal 3.5-5.0 Chloride 107 [...] Egfr Non- 137.0 >60 Egfr 165.7 >60 17 CBC Auto 03/18/2019 [facility] White Blood 1.6 10^3/uL Low 3.5 -10.[address] [place] [address] [phone] Red Blood Count 3.10 10^6/uL Low 4.18-5.48 Hemoglobin 10.8 g/dL Low 14.0-18.0 Hematocrit 29 % Low 42-52 Mean Corpuscular Volume 94 fL Normal 80-94 Mean Corpuscular Hemoglobin 35 pg High 27-31 Mean Corpuscular HGB Conc 37 g/dL High 31-36 Red Cell Distribution Width 15 % Normal 10-15 Platelet Count 23 10^3/uL Low 150-450 18 Mean Platelet Volume 6.4 fL Low 7.4-10.4 [...] Blood Cells % 0.1 CBC Auto 02/26/2019 [facility] White Blood 2.0 10^3/uL Low 3.5 -10.[address] [place] [address] [phone] Red Blood Count 2.98 10^6/uL Low 4.18-5.48 Hemoglobin 10.5 g/dL Low 14.0-18.0 Hematocrit 28 % Low 42-52 Mean Corpuscular Volume 94 fL Normal 80-94 Mean Corpuscular Hemoglobin 35 pg High 27-31 Mean Corpuscular HGB Conc 38 g/dL High 31-36 Red Cell Distribution Width 15 % Normal 10-15 Platelet Count 18 10^3/uL Low 150-450 19 Mean Platelet Volume [...] Blood Cells % 0.0 Stool Occult 02/17/2019 [facility] Stool Occult SEE RESULT 20 Blood, Screen [address] Blood, [place] [address] Screen [phone] Inr/Protime 02/17/2019 [facility] Inr 1.49 High 0.82- [address] 1.09 [place] [address] [phone] Laboratory test 02/17/2019 [facility] Partial 40.1 seconds High 26.0- finding [address] Thrombo Time 38.0 [place] [address] PTT [phone] Comp Metabolic 02/17/2019 [facility] Sodium 137 mmol/L Normal 135-[address] [place] [address] [phone] Potassium 3.8 mmol/L Normal 3.5-5.0 Chloride 106 [...] Egfr Non- 120.6 >60 Egfr 145.9 >60 22 CBC Auto 02/17/2019 [facility] White Blood 1.5 10^3/uL Low 3.5 -10.[address] Count [place], [place] [id number] [phone] Red Blood Count 3.09 10^6/uL Low 4.18-5.48 [...] fL Low 7.4-10.4 Type & Screen 02/17/2019 [facility] Patient Blood Type AB Positive [address] [place] [address] [phone] Antibody Screen NEGATIVE Laboratory test 02/17/2019 [facility] Pheresis SEE RESULTS [address] Platelets BELO <[place] [address] NOTE> [phone] Pathologist Review (SEE NOTE) 24 CBC Auto 12/30/2018 [facility] Red Blood 3.42 10^6/uL Low 4.18 -5.[address] [place] [address] [phone] White Blood Count 2.2 10^3/uL Low 3.5-10.8 Hemoglobin 11.5 g/dL Low 14.0-18.0 Hematocrit 31 % Low 42-52 Mean Corpuscular Volume 91 fL Normal 80-94 Mean Corpuscular Hemoglobin 34 pg High 27-31 Mean Corpuscular HGB Conc 37 g/dL High 31-36 Red Cell Distribution Width 16 % High 10-15 Platelet Count 22 10^3/uL Low 150-450 25 Mean Platelet Volume 7.4 fL Normal 7.4-10.4 [...] Blood Cells % 0.0 Retic Count 12/30/2018 [facility] Retic Count 2.9 % High 0.5- 1.5 [address] [place] [address] [phone] Mean Retic Volume 114.0 Immature Retic Fraction 0.49 RBC Retic Count 3.42 10^6/uL Low 4.18-5.48 Corrected Retic Count 1.9 % High 0.5-1.5 Maturation Factor Retic 1.5 Retic Index 1.30 Hematocrit for Retic CNT 31 % Low 42-52 Comp Metabolic 12/30/2018 [facility] Sodium 136 mmol/L Normal 135-145 Panel [address] [place] [address] [phone] Potassium 4.2 mmol/L Normal 3.5-5.0 Chloride 108 [...] Egfr Non- 129.9 >60 Egfr 157.2 >60 26 Laboratory test 12/30/2018 [facility] Cold Agglutinin <1:64 < 1:64 [address] Screen/[place] [address] [phone] Platelet Count 12/09/2018 [facility] Platelet Count 24 Low 150 -[address] 10^3/[place] [address] [phone] Mean Platelet Volume 7.0 fL Low 7.4-10.4 Laboratory test 12/09/2018 [facility] Pheresis SEE RESULTS 29, [address] Platelets BELO <[place] [address] NOTE> [phone] CBC Auto Diff 12/09/2018 [facility] White Blood 2.1 10^3/uL Low 3.5- [address] Count 10.8 [place] [address] [phone] Red Blood Count 3.41 10^6/uL Low 4.18-5.48 [...] 0.2 Platelet Count 19 10^3/uL Low 150-450 31 Mean Platelet Volume 6.5 fL Low 7.4-10.4 1 Result TnIDx:0.03 Called to [id number] at: 14:11:34 by:[id number] Read back by: [id number] Troponin-I testing on Plasma Separator Tubes (PST) has a known false positive rate of 0.20-0.40%. All positive troponins reflex immediately to secondary confirmatory testing. Using the elarm DxI 800 Access Immunoassay systems, the 99th percentile upper reference limit was demonstrated to be < 0.03 ng/mL. 2 Standard intensity warfarin therapeutic range: 2.0-3.0 High intensity warfarin therapeutic range: 2.5-3.5 3 [facility] Severe Sepsis and Septic Shock Management Bundle Measure requires all lactic acids initially measuring >2.0 mmol/L be repeated. 4 Consistent with Previous Results Reported on 05/14/19 5 Because ethnic data is not always [...] 5 Kidney failure <15 (or dialysis) 6 Result TnIDx:0.03 Called to [id number] at: 12:10 by:[id number] Read back by: [id number] Troponin-I testing on Plasma Separator Tubes (PST) has a known false positive rate of 0.20-0.40%. All positive troponins reflex immediately to secondary confirmatory testing. Using the elarm DxI 800 Access Immunoassay systems, the 99th percentile upper reference limit was demonstrated to be < 0.03 ng/mL. 7 RECTAL BLEEDING PER PT 8 SEE RESULTS BELOW [id number] BP PHPLT TRANSFUSED 05/14/19 0208 [id number] AP PHPLT TRANSFUSED 05/14/19 0515 9 Because ethnic data is not always [...] 5 Kidney failure <15 (or dialysis) 10 Standard intensity warfarin therapeutic range: 2.0-3.0 High intensity warfarin therapeutic range: 2.5-3.5 11 Consistent with Previous Results Reported on 04/08/19. Critical Result PLT:17 Called to and read back by: [id number] at: 05/13/2019 21:10:58 by:[id number] 12 Consistent with Previous Results Reported on 03/18/19. Critical Result NE#:0.7 Called to and read back by [id number] at: 05/13/2019 21:10:58 by:[id number] 13 SEE RESULTS BELOW [id number] AP PHPLTLR TRANSFUSED 04/07/192015 14 Consistent with Previous Results Reported on 03/18/19. 15 Standard intensity warfarin therapeutic range: 2.0-3.0 High intensity warfarin therapeutic range: 2.5-3.5 16 Serum levels of PSA measured using the [employer] [place] DXI Hybritech immunoassay should not be interpreted [...] methods or kits cannot be used interchangeably. 17 Because ethnic data is not always readily [...] 15-29 5 Kidney failure <15 (or dialysis) 18 Consistent with Previous Results Reported on 02/26/19 19 Consistent with Previous Results Reported on 02/17/19 20 SEE RESULT BELOW Name: ROBLES ROGERS : [address]: Diamante Pino MD Acct: [id number] Unit: [id number] AGE: 59 Location: ED Re02/17/19 SEX: M Status: REG ER SPEC: [id number] MAGGI: 02/17/19-[address] [facility] [address]: Diamante Pino MD REQ: [id number] RECD: 02/18/19-0122 STATUS: LASHANDA NO DR: Chelsie Huerta MD _ SOURCE: STOOL SPDESC: ORDERED: Occult Bl, Scn Procedure Result Reported Site Stool Occult Blood (1) Final 02/18/19- 0129 ML Stool Occult Blood Negative * ML - Main Lab . END OF REPORT DEPARTMENT OF PATHOLOGY, [address] [place] [address] Suresh Noonan M.D. Director [facility] # [id number] 21 Standard intensity warfarin therapeutic range: 2.0-3.0 High intensity warfarin therapeutic range: 2.5-3.5 22 Because ethnic data is not always readily [...] 15-29 5 Kidney failure <15 (or dialysis) 23 SEE RESULTS BELOW [id number] OP PHPLT TRANSFUSED 02/18/19 0054 24 Pancytopenia with marked thrombocytopenia. Reviewed by Elisabeth Aceves MD 25 Consistent with Previous Results Reported on 12/09/18 26 Because ethnic data is not always readily [...] 15-29 5 Kidney failure <15 (or dialysis) 27 Test Performed by: [address] [address] 28 Consistent with Previous Results Reported on 12/09/18. 29 LAB 30 SEE RESULTS BELOW [id number] ABP PHPLT TRANSFUSED 12/09/18 1512 31 Platelet count confirmed by estimate Procedures Date Code Description Status 04/14/2019 19654 Anoscopy Completed 04/09/2019 35154 Anoscopy Completed 03/30/2019 90318 Hemorrhoidectomy, Internal, By Rubber Band Ligation(S) Completed 12/06/2018 [id number] Diabetic Retinal Eye Exam Completed 04/19/2016 283629076 Diabetic Retinal Eye Exam Completed 11/09/2014 737444157 Diabetic Retinal Eye Exam Completed 12/05/2012 096971533 Diabetic Retinal Eye Exam Completed 12/01/2012 423700971 Diabetic Retinal Eye Exam Completed 02/05/2011 731132156 Diabetic Foot Exam Completed 02/24/2009 558151891 Diabetic Foot Exam Completed 09/02/2008 29270729 Colonoscopy Completed Medical Devices Description No Information Available Encounters Type Date Location Provider Dx Diagnosis Office Visit 05/14/2019 [facility] Gwen Echols, K92.2 Gastrointestinal 10:49a raj Carreno M.D. 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 Melena Office Visit 03/30/2019 11:30a [facility] Paredes.[facility] MD, hemorrhoids FACS D50.0 Iron deficiency anemia secondary to blood loss (chronic) Assessments Date Code Description Provider 05/29/2019 K92.2 Gastrointestinal hemorrhage, unspecified Keeganyovani Almendarez, SAND CARRIER 05/29/2019 D69.6 Thrombocytopenia, unspecified Keegan Almendarez, SAND CARRIER 05/29/2019 I50.9 Heart failure, unspecified Keegan Erickson, SAND CARRIER 05/29/2019 B18.2 Chronic viral hepatitis C Keegan Almendarez NP 05/14/2019 K92.2 Gastrointestinal hemorrhage, unspecified Gwen Echols M.D. 05/14/2019 E72.20 Disorder of urea cycle metabolism, Gwen Echols M.D. unspecified 05/14/2019 D50.9 Iron deficiency anemia, unspecified Gwen Echols M.D. 05/14/2019 D69.6 Thrombocytopenia, unspecified Gwen Echols M.D. 05/14/2019 B18.2 Chronic viral hepatitis C Gwen Echols M.D. 05/14/2019 K74.60 Unspecified cirrhosis of liver Gwen Echols M.D. 05/14/2019 E03.9 Hypothyroidism, unspecified Gwen Echols M.D. 04/14/2019 K64.1 Second degree hemorrhoids Robles Chahal MD, FACS 04/14/2019 D50.0 Iron deficiency anemia secondary to blood Robles Chahal MD, FACS loss (chronic) 04/14/2019 K92.1 Rosy Chahal MD, FACS 04/09/2019 K64.1 Second degree hemorrhoids Robles Chahal MD, FACS 04/09/2019 D50.0 Iron deficiency anemia secondary to blood Robles Chahal MD, FACS loss (chronic) 04/09/2019 K92.1 Rosy Chahal MD, FACS 03/30/2019 K64.1 Second degree hemorrhoids Robles Chahal MD, FACS 03/30/2019 D50.0 Iron deficiency anemia secondary to blood Robles Chahal MD, FACS loss (chronic) Plan of Treatment 05/29/2019 - Keegan Almendarez NPK92.2 Gastrointestinal hemorrhage, unspecifiedComments:It is important to make a follow up appointment with the installation tech in [place].D69.6 Thrombocytopenia, unspecifiedComments:It is important that you contact Dr. Khoury's office to set up a follow up appointment very soon.I50.9 Heart failure, unspecifiedComments:You have a follow up appointment with cardiology in [place] on June 03 at 3pm. I have resent to prescription for the furosemide to your pharmacy. Start that right away as well as the potassium. It is important to weight yourself every day. If you are increasing in weight, having shortness of breath, or any other worsening in symptoms. You should only be taking 10mg amlodipine daily. Check your pill box to make sure you don't have the 10mg and the 5mg in there.B18.2 Chronic viral hepatitis C Functional Status Description No Information Available Mental Status Description No Information Available Referrals Refer to Reason for Referral Status Appt Date Duncan Holley MD Scheduled 06/15/2019 [address] [place] [address] [phone]
[2019-06-13 06:50] LABS: ALT 37 U/L (7-52); AST 54 U/L (13-39); Albumin 3.1 g/dL (3.2-5.2); Albumin/Globulin Ratio 1.3 (1-3); Alkaline Phosphatase 77 U/L (34-104); Anion Gap 5 mmol/L (2-11); BUN/Creatinine Ratio 20.6 (8-20); Blood Urea Nitrogen 13 mg/dL (6-24); CO2 Carbon Dioxide 27 mmol/L (22-32); Chloride 106 mmol/L (101-111); EGFR African American 156.7 (>60); EGFR Non-African American 129.5 (>60); Globulin 2.4 g/dL (2-4); Glucose 163 mg/dL (70-100); Potassium 3.6 mmol/L (3.5-5.0); Sodium 138 mmol/L (135-145); Total Protein 5.5 g/dL (6.4-8.9)
[2019-06-13 06:52] LABS: Troponin I 0.01 ng/mL (<0.03)
[2019-06-13 07:03] LABS: Alcohol < 10 mg/dL (<10)
[2019-06-13 08:06] LABS: Hematocrit 23 % (42-52); Hemoglobin 8.4 g/dL (14.0-18.0); Mean Corpuscular HGB Conc 37 g/dL (31-36); Mean Corpuscular Hemoglobin 34 pg (27-31); Mean Corpuscular Volume 94 fL (80-94); Mean Platelet Volume 6.7 fL (7.4-10.4); Platelet Count 24 10^3/uL (150-450); Red Blood Count 2.43 10^6 /uL (4.18-5.48); Red Cell Distribution Width 22 % (10-15)
[2019-06-13 08:07] LABS: ABS Eosinophils 0.1 10^3/ul (0-0.6); ABS Lymphocytes 0.5 10^3/ul (1.0-4.8); ABS Monocytes 0.2 10^3/ul (0-0.8); ABS Neutrophils 1.2 10^3/ul (1.5-7.7); Eosinophil % 6.3 %; Lymphocyte % 22.5 %
--- NOTE | 2019-06-13 11:13 | PN ---
Progress Note - Progress Note Date of Service: 06/13/19 SOAP: Subjective: []Did not take lactulose yesterday because ran out of medication. Was active and felt that over did activity. This am and 3 am felt dizzy and ill. Symptoms continued and came to ER at 5 am. Now feeling better today. No fever or chills , no nausea. Since office visit has been contacted by GI at [place] for follow up and by transplant at [place]. Objective: [] Vital Signs Temp Pulse Resp BP Pulse Ox 97.9 F 57 15 114/60 97 06/13/19 05:50 06/13/19 10:37 06/13/19 10:37 06/13/19 10:37 06/13/19 10:37 HEENT: OM moist, pale CTA RRR S1S2 +BS NT ND, mild ascities. Neuro - AAOx3 and at baseline. Walked in hallway w/o difficulty. Assessment: []59 year old with ESLD w/ anemia and thrombocytopenia. Presents off lactulose with MS changes this am and increased Lactulose. Liver function, renal function and CBC otherwise stable. Discussed OBV admission and home back on Lactulose and he choose the later. Plan: []1. Ok to go home and can re-start lactulose 30 ml TID 2. Keep scheduled follow up 3. Call my office for additional symptoms.
[2019-06-13 11:18] VITALS: BP 105/55
--- NOTE | 2019-06-13 11:57 | ED ---
Altered Mental Status - HPI Summary HPI Summary: Patient is a 59yo M presenting to the ED with CC of feeling confused, fatigued, dizziness, slight SOB and generally not feeling well. Pt states sxs began last evening. No current modifying factors. He is currently on lactulose following a TIPS procedure (revision) 2-3 weeks ago and states he forgot to take his medication yesterday. He also endorses decreased PO intake over the past few days. Denies abd pain, CP. Endorses THAKUR, consistent with his history which is normal for him. Denies this THAKUR worst of life or acute onset. Does endorse rectal bleeding, but states this has improved since the TIPS procedure. Hx of rectal bleeding x 3-4 mos and GI bleeding (internally) per patient without hematemesis followed by colonoscopy at [place]. Pt endorses dark red stools with minimal clots. PCP is Dr. Huerta, oncologist is Dr. Khoury. Not on chemotherapy x over [address] Jama, GI specialist is following. TIPS procedure completed about 2-3 weeks ago at [place]. He was just placed on liver transplant list. PMHx of anemia, cirrhosis, hep C, GI bleed, thyroid disease, hepatitis C, thrombocytopenia, SCC neck/throat CA and prostate CA is noted. He notes previous platelet and iron transfusions on his other visits. Patient seems confused and is not answering all questions appropriately and forgetting medication names, adding I just feel very confused. - History Of Current Complaint Chief Complaint: EDDizziness Stated Complaint: NOT FEELING WELL PER PT Time Seen by Provider: 06/13/19 06:01 Hx Obtained From: Patient Hx From Patient Unobtainable Due To: Altered Mental Status Onset/Duration: Still Present Timing: Constant Severity Initially: Moderate Severity Currently: Moderate Character: Confusion Aggravating Factor(s): Nothing Alleviating Factor(s): Nothing Associated Signs And Symptoms: Positive: Dizziness, Headache, Weakness Related History: Other: - encephalopathy - Allergies/Home Medications Allergies/Adverse Reactions: Allergies Allergy/AdvReac Type Severity Reaction Status Date / Time No Known Allergies Allergy Verified 06/13/19 05:56 PMH/Surg Hx/FS Hx/Imm Hx Previously Healthy: No Endocrine/Hematology History: Reports: Hx Blood Transfusions - platelets, Hx 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 Denies: Hx Diabetes, Hx Thyroid Disease Cardiovascular History: Denies: Hx Congestive Heart Failure, Hx Hypertension, Hx Pacemaker/ICD, Hx Peripheral Vascular Disease Respiratory History: Denies: Hx Asthma, Hx Chronic Obstructive Pulmonary Disease (COPD) GI History: Reports: Hx Cirrhosis, Hx Gastrointestinal Bleed, Other GI Disorders - Hepatitis C Denies: Hx Ulcer History: Denies: Hx Renal Disease Musculoskeletal History: Denies: Hx Arthritis, Hx Osteoporosis Sensory History: Reports: Hx Contacts or Glasses Denies: Hx Cataracts, Hx Deafness, Hx Hearing Aid Opthamlomology History: Reports: Hx Contacts or Glasses Denies: Hx Cataracts Neurological History: Denies: Hx Headaches, Hx Seizures, Hx Transient Ischemic Attacks (TIA) Psychiatric History: Reports: Hx Bipolar Disorder Denies: Hx Anxiety, Hx Depression, Hx Panic Disorder - Cancer History Cancer Type, Location and Year: 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 Prostate 2018 Hx Chemotherapy: Yes Hx Radiation Therapy: Yes Hx Palliative Cancer Treatment: No - Surgical History Surgery Procedure, Year, and Place: RIGHT HAND 03/2012, [facility] [place]. 12/22/14- REMOVAL OF LYMPH NODE LEFT NECK- [facility] [place]. bilateral hernia repair late . BILAT CARPAL TUNNEL. LEFT KNEE ARTHROSCOPE Hx Anesthesia Reactions: No - Immunization History Hx Pertussis Vaccination: No Immunizations Up to Date: Yes Infectious Disease History: No Infectious Disease History: Reports: Hx Hepatitis - C Denies: Hx Clostridium Difficile, Hx Human Immunodeficiency Virus (HIV), Hx of Known/Suspected MRSA, Hx Shingles, Hx Tuberculosis, Hx Known/Suspected VRE, Hx Known/Suspected VRSA, History Other Infectious Disease, Traveled Outside the [place] in Last 30 Days - Family History Known Family History: Positive: Hypertension, Diabetes, Other - Ovarian and liver CA - Social History Occupation: Unemployed Lives: Alone Alcohol Use: None Hx Substance Use: No Substance Use Type: Reports: None Hx Tobacco Use: Yes Smoking Status (MU): Former Smoker Type: Cigarettes Amount Used/How Often: 1/2 ppweek Length of Time of Smoking/Using Tobacco: 1 year Review of Systems Positive: Fatigue. Negative: Fever, Chills, Skin Diaphoresis Negative: Blurred Vision, Diplopia Negative: Palpitations, Chest Pain Negative: Shortness Of Breath, Cough Negative: Abdominal Pain, Vomiting, Diarrhea, Nausea Positive: see HPI Negative: Arthralgia, Myalgia Negative: Rash, Bruising Positive: Headache, Weakness. Negative: Paresthesia, Numbness, Syncope Psychological: Normal All Other Systems Reviewed And Are Negative: Yes Physical Exam Triage Information Reviewed: Yes Vital Signs On Initial Exam: Initial Vitals Temp Pulse Resp BP Pulse Ox 97.9 F 60 16 126/58 100 06/13/19 05:50 06/13/19 05:50 06/13/19 05:50 06/13/19 05:50 06/13/19 05:50 Vital Signs Reviewed: Yes Completion Of Physical Exam Limited Due To: Altered Mental Status - more confusion than baseline Appearance: Positive: Ill-Appearing - pale, Thin Skin: Positive: Dry, Pale Head/Face: Positive: Normal Head/Face Inspection Eyes: Positive: EOMI, Conjunctiva Clear Neck: Positive: Supple, Nontender, No Lymphadenopathy Respiratory/Lung Sounds: Positive: Clear to Auscultation, Breath Sounds Present Cardiovascular: Positive: Pulses are Symmetrical in both Upper and Lower Extremities, Bradycardia. Negative: Leg Edema Left, Leg Edema Right Abdomen Description: Positive: Nontender, No Organomegaly. Negative: CVA Tenderness (R), CVA Tenderness (L) Bowel Sounds: Positive: Present Musculoskeletal: Positive: Normal, Strength/ROM Intact Neurological: Positive: Alert, Oriented to Person Place, Time, Other - confused , but A and O x 3 Psychiatric: Positive: Normal, Affect/Mood Appropriate AVPU Assessment: Alert Procedures - Sedation Patient Received Moderate/Deep Sedation with Procedure: No Diagnostics - Vital Signs Vital Signs Temp Pulse Resp BP Pulse Ox 06/13/19 11:17 98.1 F 56 16 105/55 98 06/13/19 11:14 105/55 06/13/19 11:13 58 97 06/13/19 10:37 57 15 114/60 97 06/13/19 10:07 59 18 115/60 97 06/13/19 10:00 58 19 97 06/13/19 09:37 61 14 99/59 99 06/13/19 09:07 56 12 104/59 96 06/13/19 09:00 56 14 96 06/13/19 08:37 56 19 111/53 100 06/13/19 08:07 53 16 110/55 97 06/13/19 08:00 64 21 95 06/13/19 07:37 14 101/54 06/13/19 07:07 16 107/54 06/13/19 07:00 15 06/13/19 06:37 21 106/51 06/13/19 06:07 56 19 115/59 100 06/13/19 06:06 57 23 100 06/13/19 05:50 97.9 F 60 16 126/58 100 - Laboratory Lab Results: Lab Results 06/13/19 06/13/19 06/13/19 Range/Units 06:25 06:25 06:25 WBC 2.0 L (3.5-10.8) 10^3/uL RBC 2.43 L (4.18-5.48) 10^6 /uL Hgb 8.4 L (14.0-18.0) g/dL Hct 23 L (42-52) % MCV 94 (80-94) fL MCH 34 H (27-31) pg MCHC 37 H (31-36) g/dL RDW 22 H (10-15) % Plt Count 24 L (150-450) 10^3/uL MPV 6.7 L (7.4-10.4) fL Neut % (Auto) 60.5 % Lymph % (Auto) 22.5 % [place] % (Auto) 10.1 % Eos % (Auto) 6.3 % Baso % (Auto) 0.6 % Absolute Neuts (auto) 1.2 L (1.5-7.7) 10^3/ul Absolute Lymphs (auto) 0.5 L (1.0-4.8) 10^3/ul Absolute Monos (auto) 0.2 (0-0.8) 10^3/ul Absolute Eos (auto) 0.1 (0-0.6) 10^3/ul Absolute Basos (auto) 0.0 (0-0.2) 10^3/ul Absolute Nucleated RBC 0.0 10^3/ul Nucleated RBC % 0.0 Sodium 138 (135-145) mmol/L Potassium 3.6 (3.5-5.0) mmol/L Chloride 106 (101-111) mmol/L Carbon Dioxide 27 (22-32) mmol/L Anion Gap 5 (2-11) mmol/L BUN 13 (6-24) mg/dL Creatinine 0.63 L (0.67-1.17) mg/dL Est GFR ( Amer) 156.7 (>60) Est GFR (Non-Af Amer) 129.5 (>60) BUN/Creatinine Ratio 20.6 H (8-20) Glucose 163 H (70-100) mg/dL Lactic Acid (0.5-2.0) mmol/L Calcium 9.0 (8.6-10.3) mg/dL Total Bilirubin 2.90 H (0.2-1.0) mg/dL AST 54 H (13-39) U/L ALT 37 (7-52) U/L Alkaline Phosphatase 77 (34-104) U/L Ammonia 209 H (16-53) mcmol/L Troponin I 0.01 (<0.03) ng/mL B-Natriuretic Peptide 107 H (<=100) pg/mL Total Protein 5.5 L (6.4-8.9) g/dL Albumin 3.1 L (3.2-5.2) g/dL Globulin 2.4 (2-4) g/dL Albumin/Globulin Ratio 1.3 (1-3) Serum Alcohol < 10 (<10) mg/dL 06/13/19 Range/Units 06:25 WBC (3.5-10.8) 10^3/uL RBC (4.18-5.48) 10^6 /uL Hgb (14.0-18.0) g/dL Hct (42-52) % MCV (80-94) fL MCH (27-31) pg MCHC (31-36) g/dL RDW (10-15) % Plt Count (150-450) 10^3/uL MPV (7.4-10.4) fL Neut % (Auto) % Lymph % (Auto) % [place] % (Auto) % Eos % (Auto) % Baso % (Auto) % Absolute Neuts (auto) (1.5-7.7) 10^3/ul Absolute Lymphs (auto) (1.0-4.8) 10^3/ul Absolute Monos (auto) (0-0.8) 10^3/ul Absolute Eos (auto) (0-0.6) 10^3/ul Absolute Basos (auto) (0-0.2) 10^3/ul Absolute Nucleated RBC 10^3/ul Nucleated RBC % Sodium (135-145) mmol/L Potassium (3.5-5.0) mmol/L Chloride (101-111) mmol/L Carbon Dioxide (22-32) mmol/L Anion Gap (2-11) mmol/L BUN (6-24) mg/dL Creatinine (0.67-1.17) mg/dL Est GFR ( Amer) (>60) Est GFR (Non-Af Amer) (>60) BUN/Creatinine Ratio (8-20) Glucose (70-100) mg/dL Lactic Acid 1.6 (0.5-2.0) mmol/L Calcium (8.6-10.3) mg/dL Total Bilirubin (0.2-1.0) mg/dL AST (13-39) U/L ALT (7-52) U/L Alkaline Phosphatase (34-104) U/L Ammonia (16-53) mcmol/L Troponin I (<0.03) ng/mL B-Natriuretic Peptide (<=100) pg/mL Total Protein (6.4-8.9) g/dL Albumin (3.2-5.2) g/dL Globulin (2-4) g/dL Albumin/Globulin Ratio (1-3) Serum Alcohol (<10) mg/dL Result Diagrams: 06/13/19 06:25 06/13/19 06:25 Lab Statement: Any lab studies that have been ordered have been reviewed, and results considered in the medical decision making process. Altered Mental Statu Course/Dx - Course Course Of Treatment: On physical exam, patient appears pale and fatigued. Pt not opening his eyes, endorsing confusion, THAKUR and dizziness. Lungs CTA, RRR. No abdominal tenderness throughout. No CVA tenderness. No cervical LAD. Bradycardic. EKG performed immediately on arrival which shows rate of 56, sinus evelyn with prolonged ND interval. No other acute findings. Labs obtained : Normal findings in WBC, RBC, Hgb, HCT, Plt, and an ammonia level of 209. Pt does appear confused and states he feels drunk and dizzy. Discussed case with Dr. Khoury who agrees to see patient in the ED. On re-examination, pt feeling somewhat improved. Per Dr. Khoury, OK for discharge with lactulose increase of lactulose 30 ml TID. - Diagnoses Differential Diagnosis/HQI/PQRI: Hypoxia, Medication Reaction, Other - encephalopathy Provider Diagnoses: Hyperammonemia Discharge ED - Sign-Out/Discharge Documenting (check all that apply): Patient Departure - Discharge Plan Condition: Stable Disposition: HOME Patient Education Materials: Lactulose (By mouth) Referrals: Chelsie Huerta MD [Primary Care Provider] - Alessandro Khoury MD [Medical Doctor] - Additional Instructions: Please return to the ED for any worsening symptoms Follow the instructions made by Dr Khoury regarding Lactulose dosage - Billing Disposition and Condition Condition: STABLE Disposition: Home
--- NOTE | 2019-06-13 17:29 | ED ---
Imaging and Labs Follow Up Follow Up Type: Imaging Imaging Result: questionable patchy infiltrate of the lung - correlate to signs and sxs Patient Communication/Plan: pt did not have fever, cough, congestion or evidence of SOB on exam noted to not be hypoxic in the ED and denies recent illness hx of confusion d/t elevated ammonia - treated for this Also seen by Dr. Khoury in the ED Provider Diagnoses: Hyperammonemia
== END 2019-06-13 11:25 | disposition home or self-care (01) ==
LOC: ED 05:47
DX: E72.20 Disorder of urea cycle metabolism, unspecified (principal); D64.9 Anemia, unspecified; F31.9 Bipolar disorder, unspecified; B19.20 Unspecified viral hepatitis C without hepatic coma; Z85.46 Personal history of malignant neoplasm of prostate; Z85.89 Personal history of malignant neoplasm of other organs and systems; Z87.891 Personal history of nicotine dependence
CPT/HCPCS: 36415; 71045; 80053; 80320; 82140; 83605; 83880; 84484; 85025; 93005; 99283; 99284; G0480